=== PATIENT | female | born 1940 | race Caucasian/White ===

== ENCOUNTER 2017-12-11 07:03 | Emergency (ER) | payer MEDICARE, MEDICAID ==
[2017-12-11 07:24] VITALS: BP 160/76
[2017-12-11] MEDS ORDERED: Ketorolac 60 MG/2 ML SDV IM ONE (07:42)
[2017-12-11 08:25] LABS: CHLORIDE,CL 102 mEq/L (98-106); SODIUM,NA 135 mEq/L (136-145)
[2017-12-11] MEDS ORDERED: Acetaminophen/HYDROcodone 325-5 MG Tab PO ONE (08:44)
[2017-12-11] MEDS ORDERED: fentaNYL 100 MCG/2 ML SDV IVPUSH PRN (08:50)
[2017-12-11] MEDS ORDERED: Acetaminophen/HYDROcodone 325-5 MG Tab PO PRN (11:00)
[2017-12-11] MEDS ORDERED: fentaNYL 100 MCG/2 ML SDV IM PRN (12:25)
--- NOTE | 2017-12-11 16:18 | EDM.PDOC ---
ED HPI GENERAL MEDICAL PROBLEM - General Chief Complaint: ENT Problem Stated Complaint: ear pain Time Seen by Provider: 12/11/17 07:40 Source of Information: Reports: Patient History Limitations: Reports: No Limitations - History of Present Illness INITIAL COMMENTS - FREE TEXT/NARRATIVE: Angeles is a 77 year old female with PMH of CAD, osteoporosis, hypertension, hyperlipidemia, and overactive bladder, who presents to the ED with c/o left external ear pain, radiating down the left side of her neck. She reports the pain suddenly came on around midnight last night and has been severe ever since. She reports she has had a "lump" in that area and it is very tender to touch. She reports she has had this "lump" for quite some time. She reports that at times she feels like "she can feel her pulse in the area." She denies ever having any pain in this area. She denies any injury to her neck or ear. She reports she did fall back in September, when she "passed out" but has not had any neck pain following that until now. She denies any radiation of the pain past her neck. She denies any weakness in her upper extremities, numbness or tingling. Denies any fever or chills. Denies any hearing loss. Denies any recent upper respiratory issues or illness. Reports she has otherwise been feeling well. Patient appears very uncomfortable. She reports she has taken Aleve at home for the pain, but this did not seem to help. 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 Left Ear Pain Score (Numeric/FACES): 10 - Related Data Allergies Allergy/AdvReac Type Severity Reaction Status Date / Time No Known Allergies Allergy Verified 12/11/17 07:24 Home Meds: Home Meds Aspirin [Halfprin] 81 mg PO DAILY 01/07/16 [History] Calcium Carb & Citrate/Vit D3 [Calcium + D3 ER Tablet] 1 each PO BID 01/07/16 [ History] Clopidogrel Bisulfate [Clopidogrel] 75 mg PO DAILY 01/07/16 [History] Lactobacillus Acidophilus [Probiotic] 1 each PO DAILY 01/07/16 [History] Metoprolol Succinate [Toprol XL] 25 mg PO DAILY 01/07/16 [History] Multivitamin [Multivitamins] 1 each PO DAILY 01/07/16 [History] Nitroglycerin [Nitrolingual] 0.4 gm SL ASDIRECTED PRN 01/07/16 [History] Ubidecarenone [COQ-10] 30 mg PO DAILY 01/07/16 [History] atorvaSTATin Calcium [Atorvastatin Calcium] 40 mg PO BEDTIME 01/07/16 [History] Denosumab [Prolia] 60 mg SUBCUT ASDIRECTED 01/10/17 [History] Cephalexin [Keflex] 500 mg PO Q12H 5 Days #10 cap 12/11/17 [Rx] Ketorolac Tromethamine 10 mg PO Q6H PRN #20 tablet 12/11/17 [Rx] Past Medical History HEENT History: Reports: Macular Degeneration Cardiovascular History: Reports: Blood Clots/VTE/DVT, High Cholesterol, Hypertension, Stents Gastrointestinal History: Reports: Chronic Diarrhea Genitourinary History: Reports: UTI, Recurrent [employer] History: Reports: Hematologic History: Reports: Blood Transfusion(s) Oncologic (Cancer) History: Reports: Breast - Infectious Disease History Infectious Disease History: Reports: C-Difficile - Past Surgical History GI Surgical History: Reports: Cholecystectomy, Colonoscopy, Polypectomy Female Surgical History: Reports: None Oncologic Surgical History: Reports: Lumpectomy Social & Family History - Family History Family Medical History: Noncontributory - Tobacco Use Smoking Status *Q: Never Smoker Second Hand Smoke Exposure: No - Recreational Drug Use Recreational Drug Use: No ED ROS ENT - Review of Systems Review Of Systems: ROS reveals no pertinent complaints other than HPI. ED EXAM, ENT - Physical Exam Exam: See Below Exam Limited By: No Limitations General Appearance: Alert, WD/WN, Moderate Distress Eye Exam: Bilateral Eye: EOMI, Normal Fundi, Normal Inspection, PERRL Ears: Normal Canal, Hearing Grossly Normal, Normal TMs, Auricular Tenderness, Other (left posterior auricular mobile cyst measuring ~1.5 cm, no erythema or increased warmth, very tender to touch). No: Hearing Loss, Auricular Erythema, Auricular Ecchymosis, Canal Discharge, TM Bulging, TM Erythema, TM Fluid, TM Perforation Nose: Normal Inspection, Normal Mucousa, No Blood Mouth/Throat: Normal Inspection, Normal Gums, Normal Lips, Normal Oropharynx, Normal Teeth Head: Atraumatic, Normocephalic Neck: Normal Inspection, Supple, Limited Range of Motion (due to pain), Tender Lateral (left), Other (no cervical vertebral tenderness). No: Lymphadenopathy ( L), Lymphadenopathy (R), Tender Midline Respiratory/Chest: No Respiratory Distress, Lungs Clear, Normal Breath Sounds, No Accessory Muscle Use, Chest Non-Tender Cardiovascular: Normal Peripheral Pulses, Regular Rate, Rhythm, No Edema, No Gallop, No JVD, No Murmur, No Rub Back: Normal Inspection, Full Range of Motion Extremities: Normal Inspection, Normal Range of Motion, Non-Tender, No Pedal Edema, Normal Capillary Refill Neurological: Alert, Oriented, CN II-XII Intact, Normal Cognition, Normal Gait, Normal Reflexes, No Motor/Sensory Deficits Psychiatric: Anxious Skin: Warm, Dry, Intact, Normal Color, No Rash Lymphatic: No Adenopathy Course - Vital Signs Last Recorded V/S: Last Vital Signs Temp 97.8 F 12/11/17 07:11 Pulse 100 12/11/17 07:11 Resp 20 12/11/17 07:11 BP 160/76 H 12/11/17 07:11 Pulse Ox 97 12/11/17 07:11 - Orders/Labs/Meds Labs: Laboratory Tests 12/11/17 12/11/17 12/11/17 Range/Units 07:58 08:09 08:09 WBC 4.2 L (5.0-10.0) 10^3/uL RBC 3.94 L (4.00-5.50) 10^6/uL Hgb 12.7 (12.0-16.0) g/dL Hct 37.3 (37.0-47.0) % MCV 94.7 H (82.0-94.0) fL MCH 32.2 H (27.0-32.0) pg MCHC 34.0 (33.0-38.0) g/dL RDW Coeff of Levon 12.1 (11.0-15.0) % Plt Count 316 (150-400) 10^3/uL Neut % (Auto) 73.7 (35-85) % Lymph % (Auto) 18.9 (10-55) % [place] % (Auto) 6.7 (0-16) % Eos % (Auto) 0.5 (0-5) % Baso % (Auto) 0.2 (0-3) % Neut # (Auto) 3.07 (1.80-7.00) 10^3/uL Lymph # (Auto) 0.79 L (1.00-4.80) 10^3/uL [place] # (Auto) 0.28 (0.00-0.80) 10^3/uL Eos # (Auto) 0.02 (0.00-0.45) 10^3/uL Baso # (Auto) 0.01 10^3/uL ESR 10 (0-20) mm/hr Sodium 135 L (136-145) mEq/L Potassium 4.4 (3.5-5.0) mEq/L Chloride 102 (98-106) mEq/L Carbon Dioxide 23 (21-32) mmol/L BUN 26 H (7-18) mg/dL Creatinine 1.2 H (0.6-1.0) mg/dL Est Cr Clr Drug Dosing 39.60 mL/min Estimated GFR (MDRD) 44 L (>=60) mL/min Glucose 118 H (75-99) mg/dL Calcium 9.3 (8.4-10.1) mg/dL Total Bilirubin 0.6 (0.0-1.0) mg/dL AST 18 (15-37) U/L ALT 23 (12-78) U/L Alkaline Phosphatase 63 (46-116) U/L C-Reactive Protein < 0.2 L (0.2-0.8) mg/dL Total Protein 7.1 (6.4-8.2) g/dL Albumin 3.8 (3.4-5.0) g/dL Urine Color Yellow (YELLOW) Urine Appearance Clear (CLEAR) Urine pH 7.0 (4.5-8.0) Ur Specific [place] 1.015 (1.003-1.020) Urine Protein Negative (NEGATIVE) mg/dL Urine Glucose (UA) Negative (NEGATIVE) mg/dL Urine Ketones Trace H (NEGATIVE) mg/dL Urine Occult Blood Negative (NEGATIVE) Urine Nitrite Negative (NEGATIVE) Urine Bilirubin Negative (NEGATIVE) Urine Urobilinogen 0.2 (0.2-1.0) EU/dL Ur Leukocyte Esterase Small H (NEGATIVE) Urine RBC Not seen (0-5) /HPF Urine WBC 0-5 (0-5) /HPF Ur Squamous Epith Cells Occasional H (NOT SEEN) /HPF Amorphous Sediment Few H (NOT SEEN) /HPF Urine Bacteria Occasional H (NOT SEEN) /HPF Meds: Medications Discontinued Medications Generic Name Dose Route Start Last Admin Trade Name Freq PRN Reason Stop Dose Admin Hydrocodone Bitart/Acetaminophen 1 tab 12/11/17 08:44 12/11/17 08:46 [place] 325-5 Mg PO 12/11/17 08:45 1 tab ONETIME ONE Administration Hydrocodone Bitart/Acetaminophen 1 tab 12/11/17 11:00 [place] 325-5 Mg PO Q4H PRN Pain Ceftriaxone Sodium 1 gm 12/11/17 16:24 12/11/17 16:33 Rocephin IM 12/11/17 16:25 1 gm ONETIME ONE Administration Fentanyl 25 mcg 12/11/17 08:50 12/11/17 10:14 Sublimaze IVPUSH 25 mcg Q2H PRN Administration Pain Fentanyl 25 mcg 12/11/17 12:25 12/11/17 12:32 Sublimaze IM 25 mcg Q2H PRN Administration Pain Ketorolac Tromethamine 60 mg 12/11/17 07:42 12/11/17 07:47 Toradol IM 12/11/17 07:43 60 mg ONETIME ONE Administration Lidocaine HCl Confirm 12/11/17 16:48 12/11/17 16:33 Xylocaine 1% Administered 12/11/17 16:49 2.1 ml Dose Administration 20 ml .[address] .[facility] ONE - Re-Assessments/Exams Free Text/Narrative Re-Assessment/Exam: 12/11/[address] Aguirre, who came to examine the patient. He recommends proceeding with cervical spine xray. 12/11/17 1000 Cervical spine xray reveals trivial retrolisthesis of C5 on C6 associated with mild degenerative disc space narrowing. Will proceed with MRI. Will move patient to extended ER for pain management until MRI can be completed and results are back. Patient's pain improved with pain medications. 12/11/17 1300 MRI reveals multilevel degenerative change of the cervical spine, as well as foraminal stenosis most pronounced on the left C5-C6. Consulted with Dr. Uriarte, who also came and examined the patient. Her neck pain has now improved, but she continues to be very tender to touch in the area of left posterior auricular cyst. Neck tenderness has improved. She appears much more comfortable now with pain medications. We will give patient IM rocephin injection and discharge home on PO Keflex. Patient will follow up with Dr. Uriarte on Sunday12/17/2017 for cyst removal, after allowing time for inflammation to improve. She will be discharged home on oral pain meds and will also put in referral for physical therapy. Departure - Departure Time of Disposition: 16:05 Disposition: Home, Self-Care 01 Condition: Good Clinical Impression: Cyst on ear, Neural foraminal stenosis of cervical spine - Discharge Information Prescriptions: Cephalexin [Keflex] 500 mg PO Q12H 5 Days #10 cap Ketorolac Tromethamine 10 mg PO Q6H PRN #20 tablet PRN Reason: Pain Instructions: Cervical Subluxation Referrals: Lynne Pugh PA-C [Primary Care Provider] - Forms: ED Department Discharge Additional Instructions: Schedule appointment with physical therapy for neck pain Apply heat to affected area for comfort Toradol every 6 hours as needed. May alternate with 650 mg Tylenol. Keflex twice daily as needed Probiotic daily- May just increase yogurt intake. This will help with GI issues while being on antibiotics. Appointment with Dr. Uriarte on Sunday12/17/2017 at 3:15 pm for cyst removal, sooner if pain is unbearable
[2017-12-11] MEDS ORDERED: cefTRIAXone 1 GM Vial IM ONE (16:24)
[2017-12-11] MEDS ORDERED: Lidocaine 1% 20 ML MDV ONE (16:48)
== END 2017-12-11 16:55 | disposition home or self-care (01) ==
LOC: CC.ED 07:03
DX: L72.0 Epidermal cyst (principal); M48.02 Spinal stenosis, cervical region; I25.10 Atherosclerotic heart disease of native coronary artery without angina pectoris; I10 Essential (primary) hypertension; E78.5 Hyperlipidemia, unspecified; Z79.82 Long term (current) use of aspirin; Z79.899 Other long term (current) drug therapy; E78.00 Pure hypercholesterolemia, unspecified; Z95.5 Presence of coronary angioplasty implant and graft; Z87.440 Personal history of urinary (tract) infections; Z90.49 Acquired absence of other specified parts of digestive tract
CPT/HCPCS: 36415; 72040; 72141; 80053; 81001; 85025; 85651; 86140; 96372; 99284; A9270-GY; J0696; J1885; J3010

== ENCOUNTER 2018-07-23 08:13 | Inpatient (IN) | payer MEDICARE, OTHER ==
[2018-07-23] MEDS ORDERED: Temazepam 15 MG Cap PO PRN (09:15)
[2018-07-23] MEDS ORDERED: Ondansetron 4 MG/2 ML SDV IV PRN (09:15)
[2018-07-23] MEDS: Sodium Chloride 0.9% 1,000 ML IV SCH (10:21)
[2018-07-23] MEDS: cefTRIAXone 1 GM Vial IVPUSH SCH (10:21)
[2018-07-23] MEDS: Acetaminophen 325 MG Tab PO PRN ×2 (10:28→17:16)
[2018-07-23 10:44] LABS: CHLORIDE,CL 97 mEq/L (98-106); SODIUM,NA 134 mEq/L (136-145)
[2018-07-23] MEDS: Enoxaparin 30 MG/0.3 ML Syringe SUBCUT SCH (16:22)
[2018-07-23] MEDS: Formoterol/Mometasone 100-5 MCG 8.8 GM Inhaler IH PRN (17:40)
[2018-07-23] MEDS: Ibuprofen 200 MG Tab PO PRN (18:59)
[2018-07-24] MEDS: Sodium Chloride 0.9% 1,000 ML IV SCH ×3 (05:11→23:44)
[2018-07-24] MEDS: Aspirin 81 MG Tab.EC PO SCH (07:56)
[2018-07-24] MEDS: Clopidogrel 75 MG Tab PO SCH (07:56)
[2018-07-24] MEDS: Polyethylene Glycol 3350 Powder 17 GM Packet PO SCH (07:56)
[2018-07-24] MEDS: cefTRIAXone 1 GM Vial IVPUSH SCH (08:10)
[2018-07-24] MEDS: Formoterol/Mometasone 100-5 MCG 8.8 GM Inhaler IH PRN (14:20)
[2018-07-24] MEDS: Ibuprofen 200 MG Tab PO PRN (14:50)
[2018-07-24] MEDS: Enoxaparin 30 MG/0.3 ML Syringe SUBCUT SCH (16:09)
--- NOTE | 2018-07-24 20:44 | PCM.PN ---
- General Info Date of Service: 07/24/18 Admission Dx/Problem (Free Text): Acute UTI Weakness Functional Status: Reports: Pain Controlled, Tolerating Diet, Ambulating - Review of Systems General: Reports: Weakness, Fatigue. Denies: Fever HEENT: Reports: No Symptoms Pulmonary: Denies: Shortness of Breath, Cough Cardiovascular: Denies: Chest Pain, Edema, Lightheadedness Gastrointestinal: Denies: Abdominal Pain, Nausea, Vomiting Genitourinary: Reports: Frequency. Denies: Burning Musculoskeletal: Reports: Back Pain Skin: Reports: No Symptoms Neurological: Reports: No Symptoms - Patient Data Vitals - Most Recent: Last Vital Signs Temp 99.0 F 07/24/18 20:00 Pulse 82 07/24/18 20:00 Resp 20 07/24/18 20:00 BP 109/57 L 07/24/18 20:00 Pulse Ox 97 07/24/18 20:00 Weight - Most Recent: 147 lb 11.355 oz I&O - Last 24 Hours: Intake & Output 07/24/18 07/24/18 07/24/18 06:59 14:59 22:59 Intake Total 1320 Balance 1320 Apolinar Results Last 24 Hours: Microbiology 07/23/18 09:45 Aerobic Blood Culture - Preliminary Blood Gram Negative Rods Anaerobic Blood Culture - Preliminary Gram Negative Rods 07/23/18 09:15 Urine Culture - Preliminary Urine, Bladder Gram Negative Rods 07/23/18 09:30 Aerobic Blood Culture - Preliminary Blood NO GROWTH AFTER 1 DAY Anaerobic Blood Culture - Preliminary NO GROWTH AFTER 1 DAY Med Orders - Current: Current Medications Acetaminophen (Tylenol) 650 mg PO Q4H PRN PRN Reason: Pain (Mild 1-3)/fever Last Admin: 07/23/18 17:16 Dose: 650 mg Aspirin (Halfprin) 81 mg PO DAILY [facility] Last Admin: 07/24/18 07:56 Dose: 81 mg Ceftriaxone Sodium (Rocephin) 1 gm IVPUSH 0800 [facility] Last Admin: 07/24/18 08:10 Dose: 1 gm Clopidogrel Bisulfate (Plavix) 75 mg PO DAILY [facility] Last Admin: 07/24/18 07:56 Dose: 75 mg Enoxaparin Sodium (Lovenox) 30 mg SUBCUT DAILY@1600 [facility] Last Admin: 07/24/18 16:09 Dose: 30 mg Sodium Chloride (Normal Saline) 1,000 mls @ 100 mls/hr IV ASDIRECTED [facility] Last Admin: 07/24/18 14:47 Dose: 100 mls/hr Ibuprofen (Motrin) 400 mg PO Q6H PRN PRN Reason: Fever Last Admin: 07/24/18 14:50 Dose: 400 mg Mometasone Furoate/Formoterol Fumar (Dulera 100-5 Mcg) 2 puff IH BID PRN PRN Reason: Shortness of Breath Last Admin: 07/24/18 14:20 Dose: 2 puff Ondansetron HCl (Zofran) 4 mg IV Q6H PRN PRN Reason: Nausea/Vomiting Polyethylene Glycol (Miralax) 17 gm PO DAILY [facility] Last Admin: 07/24/18 07:56 Dose: 17 gm Temazepam (Restoril) 15 mg PO BEDTIME PRN PRN Reason: Sleep - Exam General: Alert, Oriented HEENT: Mucous Membr. Moist/[place] Neck: Supple Lungs: Clear to Auscultation, Normal Respiratory Effort Cardiovascular: Regular Rate, Regular Rhythm GI/Abdominal Exam: Normal Bowel Sounds, Soft, Tender (lower quadrants "sore" with palpation) Extremities: Normal Inspection, No Pedal Edema Skin: Warm, Dry Neurological: No New Focal Deficit - Problem List & Annotations (1) UTI (urinary tract infection) SNOMED Code(s): 30975423 Code(s): N39.0 - URINARY TRACT INFECTION, SITE NOT SPECIFIED Status: Acute Priority: High Current Visit: Yes (2) Weakness SNOMED Code(s): 99168356 Code(s): R53.1 - WEAKNESS Status: Acute Priority: High Current Visit: Yes - Problem List Review Problem List Initiated/Reviewed/Updated: Yes - Assessment Assessment:: Acute UTI Weakness - Plan Plan:: Patient feeling better today, more clear. She does continue to have low back discomfort yet today. Admits abdomen is sore but does not have typical burning with urination. 102 temp last evening. Blood culture, urine culture positive today for gram negative rods. Patient relates she has had several infections now since May. Will obtain renal bladder ultrasound, repeat labs in am. Continue IV fluids, Rocephin until full ID and sensitivities received from cultures.
[2018-07-25 07:18] LABS: CHLORIDE,CL 107 mEq/L (98-106); SODIUM,NA 140 mEq/L (136-145)
[2018-07-25] MEDS: cefTRIAXone 1 GM Vial IVPUSH SCH (07:20)
[2018-07-25] MEDS: Formoterol/Mometasone 100-5 MCG 8.8 GM Inhaler IH PRN (07:20)
[2018-07-25] MEDS: Aspirin 81 MG Tab.EC PO SCH (07:20)
[2018-07-25] MEDS: Clopidogrel 75 MG Tab PO SCH (07:20)
[2018-07-25] MEDS: Polyethylene Glycol 3350 Powder 17 GM Packet PO SCH (07:20)
[2018-07-25] MEDS: Enoxaparin 30 MG/0.3 ML Syringe SUBCUT SCH (16:03)
--- NOTE | 2018-07-25 21:12 | PCM.PN ---
- General Info Date of Service: 07/25/18 Admission Dx/Problem (Free Text): Acute UTI Weakness Functional Status: Reports: Pain Controlled, Tolerating Diet, Ambulating - Review of Systems General: Reports: Fever, Weakness HEENT: Reports: No Symptoms Pulmonary: Denies: Shortness of Breath, Cough Cardiovascular: Denies: Chest Pain, Edema, Lightheadedness Gastrointestinal: Denies: Abdominal Pain, Nausea, Vomiting Genitourinary: Reports: No Symptoms Musculoskeletal: Reports: Back Pain (back pain present but improving) Skin: Reports: No Symptoms Neurological: Reports: No Symptoms - Patient Data Vitals - Most Recent: Last Vital Signs Temp 98.2 F 07/25/18 20:00 Pulse 87 07/25/18 20:00 Resp 20 07/25/18 20:00 BP 115/44 L 07/25/18 20:00 Pulse Ox 97 07/25/18 20:00 Weight - Most Recent: 147 lb 11.355 oz I&O - Last 24 Hours: Intake & Output 07/25/18 07/25/18 07/25/18 06:59 14:59 22:59 Intake Total 895 Balance 895 Lab Results Last 24 Hours: Laboratory Results - last 24 hr 07/25/18 07/25/18 Range/Units 06:50 06:50 WBC 4.6 L (5.0-10.0) 10^3/uL RBC 3.53 L (4.00-5.50) 10^6/uL Hgb 11.2 L (12.0-16.0) g/dL Hct 34.2 L (37.0-47.0) % MCV 96.9 H (82.0-94.0) fL MCH 31.7 (27.0-32.0) pg MCHC 32.7 L (33.0-38.0) g/dL RDW Coeff of Levon 13.1 (11.0-15.0) % Plt Count 327 (150-400) 10^3/uL Neut % (Auto) 78.6 (35-85) % Lymph % (Auto) 8.9 L (10-55) % [place] % (Auto) 11.2 (0-16) % Eos % (Auto) 1.1 (0-5) % Baso % (Auto) 0.2 (0-3) % Neut # (Auto) 3.64 (1.80-7.00) 10^3/uL Lymph # (Auto) 0.41 L (1.00-4.80) 10^3/uL [place] # (Auto) 0.52 (0.00-0.80) 10^3/uL Eos # (Auto) 0.05 (0.00-0.45) 10^3/uL Baso # (Auto) 0.01 10^3/uL Sodium 140 (136-145) mEq/L Potassium 4.2 (3.5-5.0) mEq/L Chloride 107 H (98-106) mEq/L Carbon Dioxide 26 (21-32) mmol/L BUN 10 (7-18) mg/dL Creatinine 0.9 (0.6-1.0) mg/dL Est Cr Clr Drug Dosing 49.00 mL/min Estimated GFR (MDRD) > 60 (>=60) mL/min Glucose 105 H (75-99) mg/dL Calcium 7.1 L (8.4-10.1) mg/dL C-Reactive Protein 11.0 H (0.2-0.8) mg/dL Apolinar Results Last 24 Hours: Microbiology 07/23/18 09:45 Aerobic Blood Culture - Final Blood Escherichia Coli Anaerobic Blood Culture - Final Gram Negative Rods 07/23/18 09:15 Urine Culture - Final Urine, Bladder Escherichia Coli 07/23/18 09:30 Aerobic Blood Culture - Preliminary Blood NO GROWTH AFTER 2 DAYS Anaerobic Blood Culture - Preliminary NO GROWTH AFTER 2 DAYS Med Orders - Current: Current Medications Acetaminophen (Tylenol) 650 mg PO Q4H PRN PRN Reason: Pain (Mild 1-3)/fever Last Admin: 07/23/18 17:16 Dose: 650 mg Aspirin (Halfprin) 81 mg PO DAILY [facility] Last Admin: 07/25/18 07:20 Dose: 81 mg Ceftriaxone Sodium (Rocephin) 1 gm IVPUSH 0800 [facility] Last Admin: 07/25/18 07:20 Dose: 1 gm Clopidogrel Bisulfate (Plavix) 75 mg PO DAILY [facility] Last Admin: 07/25/18 07:20 Dose: 75 mg Enoxaparin Sodium (Lovenox) 30 mg SUBCUT DAILY@1600 [facility] Last Admin: 07/25/18 16:03 Dose: 30 mg Ibuprofen (Motrin) 400 mg PO Q6H PRN PRN Reason: Fever Last Admin: 07/24/18 14:50 Dose: 400 mg Mometasone Furoate/Formoterol Fumar (Dulera 100-5 Mcg) 2 puff IH BID PRN PRN Reason: Shortness of Breath Last Admin: 07/25/18 07:20 Dose: 2 puff Ondansetron HCl (Zofran) 4 mg IV Q6H PRN PRN Reason: Nausea/Vomiting Polyethylene Glycol (Miralax) 17 gm PO DAILY [facility] Last Admin: 07/25/18 07:20 Dose: 17 gm Temazepam (Restoril) 15 mg PO BEDTIME PRN PRN Reason: Sleep Discontinued Medications Sodium Chloride (Normal Saline) 1,000 mls @ 100 mls/hr IV ASDIRECTED [facility] Last Admin: 07/24/18 23:44 Dose: 100 mls/hr - Exam General: Alert, Oriented HEENT: Mucous Membr. Moist/[place] Neck: Supple Lungs: Clear to Auscultation, Normal Respiratory Effort Cardiovascular: Regular Rate, Regular Rhythm GI/Abdominal Exam: Normal Bowel Sounds, Soft, Non-Tender Extremities: Normal Inspection, No Pedal Edema - Problem List & Annotations (1) UTI (urinary tract infection) SNOMED Code(s): 80067621 Code(s): N39.0 - URINARY TRACT INFECTION, SITE NOT SPECIFIED Status: Acute Priority: High Current Visit: Yes (2) Weakness SNOMED Code(s): 89692748 Code(s): R53.1 - WEAKNESS Status: Acute Priority: High Current Visit: Yes - Problem List Review Problem List Initiated/Reviewed/Updated: Yes - My Orders Last 24 Hours: My Active Orders 07/25/18 06:00 Renal Comp [US] Routine - Assessment Assessment:: Acute UTI Weakness - Plan Plan:: Patient feeling better today, more clear. She does continue to have low back discomfort yet today. Admits abdomen is sore but does not have typical burning with urination. 102 temp last evening. Blood culture, urine culture positive today for gram negative rods. Patient relates she has had several infections now since May. Will obtain renal bladder ultrasound, repeat labs in am. Continue IV fluids, Rocephin until full ID and sensitivities received from cultures. 07-25-2018 Patient feeling good today. Back pain improving. No abdominal pain. Spiked a fever again last night. WBC improved to 4.6 today, CRP down to 11. Urine and blood cultures both show e coli, sensitive to Rocephin. Will continue Rocephin. Ambulate today. Possibly home tomorrow.
[2018-07-26 07:24] VITALS: BP 142/62
[2018-07-26 07:30] LABS: CHLORIDE,CL 104 mEq/L (98-106); SODIUM,NA 139 mEq/L (136-145)
[2018-07-26] MEDS: Aspirin 81 MG Tab.EC PO SCH (07:56)
[2018-07-26] MEDS: Polyethylene Glycol 3350 Powder 17 GM Packet PO SCH (07:56)
[2018-07-26] MEDS: Clopidogrel 75 MG Tab PO SCH (07:56)
[2018-07-26] MEDS: cefTRIAXone 1 GM Vial IVPUSH SCH (08:22)
--- NOTE | 2018-07-26 11:21 | PCM.DCSUM1 ---
Discharge Summary - Hospital Course Free Text/Narrative:: Patient presented to clinic to see Shauna with increased low back pain and not feeling well. Had been ill for 2 days with body aches and nausea. Had vomited x2. She did take Zofran and that had helped. Continued to have chills, low back and abdominal discomfort and noted increased frequency with urination. She had several UTIs as of late and had been started on vaginal estrogen for this. Has had 3 culture confirmed UTIs in the last 10 months. Urine culture, blood cultures ordered. Initial WBC 11, CRP 14. Admitted and started on IV fluids, Rocephin. Diagnosis: Stroke: No Modified Sunflower Scale: No Symptoms at All Modified Sunflower Scale Score: 0 - Discharge Data Discharge Date: 07/26/18 Discharge Disposition: Home, Self-Care 01 Condition: Good - Discharge Diagnosis/Problem(s) (1) UTI (urinary tract infection) SNOMED Code(s): 31509592 ICD Code: N39.0 - URINARY TRACT INFECTION, SITE NOT SPECIFIED Status: Acute Priority: High (2) Weakness SNOMED Code(s): 34151003 ICD Code: R53.1 - WEAKNESS Status: Acute Priority: High - Patient Summary/Data Complications: none Hospital Course: Patient has had good improvement since admission. Has only a dull back ache. No further nausea, vomiting, or abdominal pain. Did spike high fevers the first 2 nights here, now afebrile for 24 hours. Labs have improved, WBC now 3.6. CRP improved to 6. Blood cultures and urine culture both did show e coli , sensitive to Rocephin. Renal ultrasound obtained, waiting yet on report. Will set up to see Dr. Novoa in August for follow up as well as see Lynne Pugh next week. Send her home on Augmentin as covers strains of e coli in both blood and urine. - Patient Instructions Diet: Usual Diet as Tolerated Activity: As Tolerated - Discharge Plan *PRESCRIPTION DRUG MONITORING PROGRAM REVIEWED*: No *COPY OF PRESCRIPTION DRUG MONITORING REPORT IN PATIENT KATHY: No Prescriptions/Med Rec: Amoxicillin/Potassium Clav [Augmentin 875-125 Tablet] 1 each PO BID #20 tablet Home Medications: Home Meds Aspirin [Halfprin] 81 mg PO DAILY 01/07/16 [History] Calcium Carb & Citrate/Vit D3 [Calcium + D3 ER Tablet] 2 each PO BID 01/07/16 [ History] Clopidogrel Bisulfate [Clopidogrel] 75 mg PO DAILY 01/07/16 [History] Multivitamin [Multivitamins] 1 each PO DAILY 01/07/16 [History] Nitroglycerin [Nitrolingual] 0.4 gm SL ASDIRECTED PRN 01/07/16 [History] Ubidecarenone [COQ-10] 30 mg PO DAILY 01/07/16 [History] atorvaSTATin Calcium [Atorvastatin Calcium] 40 mg PO BEDTIME 01/07/16 [History] Denosumab [Prolia] 60 mg SUBCUT ASDIRECTED 01/10/17 [History] Acetaminophen [Tylenol] 325 mg PO Q4H PRN 07/23/18 [History] Budesonide/Formoterol Fumarate [Symbicort 80-4.5 Mcg Inhaler] 2 inh INH BID PRN 07/23/18 [History] Cranberry Conc/Ascorbic Acid [Cranberry Concentrate Softgel] 1 tab PO BID [History] Estradiol [Estrace 0.01% Vaginal Crm] 1 applic VAG ASDIRECTED 07/23/18 [History] Lutein 12 mg PO DAILY 07/23/18 [History] Ondansetron [Zofran] 4 - 8 mg PO Q4H PRN 07/23/18 [History] Polyethylene Glycol 3350 [MiraLAX] 17 gm PO DAILY 07/23/18 [History] Amoxicillin/Potassium Clav [Augmentin 875-125 Tablet] 1 each PO BID #20 tablet 07/26/18 [Rx] Patient Handouts: Urinary Tract Infection, Adult Referrals: Lynne Pugh PA-C [Primary Care Provider] - (Follow up with Lynne Pugh in 10 days ) Rich Novoa MD [Physician] - (See Dr. Novoa in August in [place]) - Discharge Summary/Plan Comment DC Time >30 min.: No Discharge Summary/Plan Comment: Discharge home Continue all meds. Augmentin 875 mg BID for 10 days. Follow up with Lynne Pugh next week, Dr. Novoa in August. - General Info Date of Service: 07/26/18 Admission Dx/Problem (Free Text: Acute UTI Weakness Functional Status: Reports: Pain Controlled, Tolerating Diet, Ambulating - Review of Systems General: Reports: Weakness, Fatigue. Denies: Fever HEENT: Reports: No Symptoms Pulmonary: Denies: Shortness of Breath, Cough Cardiovascular: Denies: Chest Pain, Edema, Lightheadedness Gastrointestinal: Denies: Abdominal Pain, Nausea, Vomiting Genitourinary: Reports: No Symptoms Musculoskeletal: Reports: Back Pain Skin: Reports: No Symptoms Neurological: Reports: No Symptoms - Patient Data Vitals - Most Recent: Last Vital Signs Temp 97.9 F 07/26/18 07:23 Pulse 84 07/26/18 07:23 Resp 16 07/26/18 07:23 BP 142/62 H 07/26/18 07:23 Pulse Ox 98 07/26/18 07:23 Weight - Most Recent: 147 lb 11.355 oz Lab Results - Last 24 hrs: Laboratory Results - last 24 hr 07/26/18 07/26/18 Range/Units 07:12 07:12 WBC 3.6 L (5.0-10.0) 10^3/uL RBC 3.59 L (4.00-5.50) 10^6/uL Hgb 11.7 L (12.0-16.0) g/dL Hct 34.6 L (37.0-47.0) % MCV 96.4 H (82.0-94.0) fL MCH 32.6 H (27.0-32.0) pg MCHC 33.8 (33.0-38.0) g/dL RDW Coeff of Levon 13.1 (11.0-15.0) % Plt Count 414 H (150-400) 10^3/uL Neut % (Auto) 72.8 (35-85) % Lymph % (Auto) 15.0 (10-55) % Wolfe % (Auto) 10.8 (0-16) % Eos % (Auto) 1.1 (0-5) % Baso % (Auto) 0.3 (0-3) % Neut # (Auto) 2.63 (1.80-7.00) 10^3/uL Lymph # (Auto) 0.54 L (1.00-4.80) 10^3/uL Wolfe # (Auto) 0.39 (0.00-0.80) 10^3/uL Eos # (Auto) 0.04 (0.00-0.45) 10^3/uL Baso # (Auto) 0.01 10^3/uL Sodium 139 (136-145) mEq/L Potassium 4.5 (3.5-5.0) mEq/L Chloride 104 (98-106) mEq/L Carbon Dioxide 27 (21-32) mmol/L BUN 8 (7-18) mg/dL Creatinine 0.8 (0.6-1.0) mg/dL Est Cr Clr Drug Dosing 55.13 mL/min Estimated GFR (MDRD) > 60 (>=60) mL/min Glucose 106 H (75-99) mg/dL Calcium 7.8 L (8.4-10.1) mg/dL C-Reactive Protein 6.0 H (0.2-0.8) mg/dL SCOTT Results - Last 24 hrs: Microbiology 07/23/18 09:30 Aerobic Blood Culture - Preliminary Blood NO GROWTH AFTER 3 DAYS Anaerobic Blood Culture - Preliminary NO GROWTH AFTER 3 DAYS 07/23/18 09:45 Aerobic Blood Culture - Final Blood Escherichia Coli Anaerobic Blood Culture - Final Gram Negative Rods 07/23/18 09:15 Urine Culture - Final Urine, Bladder Escherichia Coli Med Orders - Current: Current Medications Discontinued Medications Acetaminophen (Tylenol) 650 mg PO Q4H PRN PRN Reason: Pain (Mild 1-3)/fever Last Admin: 07/23/18 17:16 Dose: 650 mg Aspirin (Halfprin) 81 mg PO DAILY [facility] Last Admin: 07/26/18 07:56 Dose: 81 mg Ceftriaxone Sodium (Rocephin) 1 gm IVPUSH 0800 [facility] Last Admin: 07/26/18 08:22 Dose: 1 gm Clopidogrel Bisulfate (Plavix) 75 mg PO DAILY [facility] Last Admin: 07/26/18 07:56 Dose: 75 mg Enoxaparin Sodium (Lovenox) 30 mg SUBCUT DAILY@1600 [facility] Last Admin: 07/25/18 16:03 Dose: 30 mg Sodium Chloride (Normal Saline) 1,000 mls @ 100 mls/hr IV ASDIRECTED [facility] Last Admin: 07/24/18 23:44 Dose: 100 mls/hr Ibuprofen (Motrin) 400 mg PO Q6H PRN PRN Reason: Fever Last Admin: 07/24/18 14:50 Dose: 400 mg Mometasone Furoate/Formoterol Fumar (Dulera 100-5 Mcg) 2 puff IH BID PRN PRN Reason: Shortness of Breath Last Admin: 07/25/18 07:20 Dose: 2 puff Ondansetron HCl (Zofran) 4 mg IV Q6H PRN PRN Reason: Nausea/Vomiting Polyethylene Glycol (Miralax) 17 gm PO DAILY [facility] Last Admin: 07/26/18 07:56 Dose: 17 gm Temazepam (Restoril) 15 mg PO BEDTIME PRN PRN Reason: Sleep - Exam General: Reports: Alert, Oriented HEENT: Reports: Mucous Membr. Moist/Hyder Neck: Reports: Supple Lungs: Reports: Clear to Auscultation, Normal Respiratory Effort Cardiovascular: Reports: Regular Rate, Regular Rhythm GI/Abdominal Exam: Normal Bowel Sounds, Soft, Non-Tender Extremities: Normal Inspection, No Pedal Edema Skin: Reports: Warm, Dry Neurological: Reports: No New Focal Deficit
== END 2018-07-26 10:50 | disposition home or self-care (01) | DRG 690 ==
LOC: CC.FCMC 08:13 → CC.MS 08:13
PROVIDERS: ADMIT Nurse Practitioner Family; ATTEND Family Medicine
DX: N39.0 Urinary tract infection, site not specified (principal); I10 Essential (primary) hypertension; Z79.899 Other long term (current) drug therapy; Z79.82 Long term (current) use of aspirin; Z85.3 Personal history of malignant neoplasm of breast; B96.20 Unspecified Escherichia coli [E. coli] as the cause of diseases classified elsewhere; Z88.8 Allergy status to other drugs, medicaments and biological substances
CPT/HCPCS: 36415; 71046; 76770; 80048; 80053; 81001; 83735; 84484; 85025; 86140; 87040; 87077; 87086; 87088; 87186; A9270-GY; J0696; J1650; J7030

== ENCOUNTER 2018-08-24 15:39 | Emergency (ER) | payer MEDICARE, OTHER ==
[2018-08-24] MEDS ORDERED: Albuterol/Ipratropium 3.0-0.5 MG/3 ML Neb Soln NEB ONE (16:12)
[2018-08-24] MEDS ORDERED: LORazepam 2 MG/ML Syringe IVPUSH ONE (16:13)
--- NOTE | 2018-08-24 16:26 | EDM.PDOC ---
ED HPI GENERAL MEDICAL PROBLEM - General Chief Complaint: General Stated Complaint: not feeling well Time Seen by Provider: 08/24/18 16:05 Source of Information: Reports: Patient, Family History Limitations: Reports: No Limitations - History of Present Illness INITIAL COMMENTS - FREE TEXT/NARRATIVE: This patient is a 78 year old female that presents to the ER with daughter at bedside. The patient reports that she was admitted here to the hospital in Jul. She reports for a UTI, they US her kidneys, than later it was discovered that she had Ovarian cancer. She found out this news on , 2 days ago. Patient reports that since about mid Jul, about the time at her discharge from the hospital she began to have some mild shortness of breath and cough. She reports then over sabrina past month she has increased abdominal pain and discomfort. She also reports over the past couple of weeks having a headache that comes and goes. She reports that her shortness of breath has become worse, then about 3am this morning it was worse and she could not sleep, and has become even worse as the day has progressed. The patient is able to conversing in complete sentences, but does appear short of breath. She is sitting up in the stretcher with her legs in the stretcher as well. The patient reports she also has come nausea at times. She denies neck pain, neck stiffness, bowel changes, rash, fever, vomiting. She reports some lower/mid becca pain that has been present for weeks as well. Patient reports that she is tire and done with feeling this way, so she called her daughter today and asked to bring her to the ER. The patient is alert and oriented. The patient reports she wants medication treatment but no machines if she codes. The patient reports that [facility] is in the process of referring her to [facility] for her ovarian CA. The patient does report in 2006 she had left breast cancer that was resolved with lumpectomy and radiation. She reports that she has history of cardiac stents from several years ago as well. At this time, I have ordered several tests. The patient also appears anxious, I have ordered Ativan. Her lung sounds are decreased, I have ordered a Duoneb. Onset: Gradual Onset Date: 08/26/17 Duration: Getting Worse Location: Reports: Chest, Abdomen Quality: Reports: Ache, Pressure Severity: Moderate Improves with: Reports: None Worsens with: Reports: None Associated Symptoms: Reports: Chest Pain, Cough, Headaches, Loss of Appetite, Malaise, Nausea/Vomiting, Shortness of Breath, Weakness (generalized). Denies: Confusion, cough w sputum, Diaphoresis, Fever/Chills, Rash, Seizure, Syncope - Related Data Allergies Allergy/AdvReac Type Severity Reaction Status Date / Time nitrofurantoin Allergy Nausea and Verified 08/24/18 15:42 Vomiting Home Meds: Home Meds Aspirin [Halfprin] 81 mg PO DAILY 01/07/16 [History] Calcium Carb & Citrate/Vit D3 [Calcium + D3 ER Tablet] 2 each PO BID 01/07/16 [ History] Clopidogrel Bisulfate [Clopidogrel] 75 mg PO DAILY 01/07/16 [History] Multivitamin [Multivitamins] 1 each PO DAILY 01/07/16 [History] Nitroglycerin [Nitrolingual] 0.4 gm SL ASDIRECTED PRN 01/07/16 [History] Ubidecarenone [COQ-10] 30 mg PO DAILY 01/07/16 [History] atorvaSTATin Calcium [Atorvastatin Calcium] 40 mg PO BEDTIME 01/07/16 [History] Denosumab [Prolia] 60 mg SUBCUT ASDIRECTED 01/10/17 [History] Acetaminophen [Tylenol] 325 mg PO Q4H PRN 07/23/18 [History] Budesonide/Formoterol Fumarate [Symbicort 80-4.5 Mcg Inhaler] 2 inh INH BID PRN 07/23/18 [History] Cranberry Conc/Ascorbic Acid [Cranberry Concentrate Softgel] 1 tab PO BID [History] Estradiol [Estrace 0.01% Vaginal Crm] 1 applic VAG ASDIRECTED 07/23/18 [History] Lutein 12 mg PO DAILY 07/23/18 [History] Ondansetron [Zofran] 4 - 8 mg PO Q4H PRN 07/23/18 [History] Polyethylene Glycol 3350 [MiraLAX] 17 gm PO DAILY 07/23/18 [History] Amoxicillin/Potassium Clav [Augmentin 875-125 Tablet] 1 each PO BID #20 tablet 07/26/18 [Rx] Past Medical History HEENT History: Reports: Macular Degeneration Cardiovascular History: Reports: Blood Clots/VTE/DVT, High Cholesterol, Hypertension, Stents Gastrointestinal History: Reports: Chronic Diarrhea Genitourinary History: Reports: UTI, Recurrent 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: Endocrine/Metabolic History: Reports: Osteoporosis Hematologic History: Reports: Blood Transfusion(s) Oncologic (Cancer) History: Reports: Breast - Infectious Disease History Infectious Disease History: Reports: C-Difficile - Past Surgical History GI Surgical History: Reports: Cholecystectomy, Colonoscopy, Polypectomy Female Surgical History: Reports: None Oncologic Surgical History: Reports: Lumpectomy Social & Family History - Family History Family Medical History: Noncontributory ED ROS GENERAL - Review of Systems Review Of Systems: See Below Constitutional: Reports: Malaise, Weakness (generalized), Fatigue, Decreased Appetite, Weight Loss. Denies: Fever, Chills HEENT: Reports: No Symptoms Respiratory: Reports: Shortness of Breath, Pleuritic Chest Pain, Cough. Denies : Sputum, Hemoptysis Cardiovascular: Reports: Dyspnea on Exertion. Denies: Edema, Lightheadedness, Palpitations, Syncope Endocrine: Reports: No Symptoms GI/Abdominal: Reports: Abdominal Pain, Decreased Appetite, Nausea. Denies: Diarrhea, Vomiting : Reports: No Symptoms Musculoskeletal: Reports: Back Pain Skin: Reports: No Symptoms Neurological: Reports: Headache. Denies: Confusion, Dizziness, Numbness, Seizure, Syncope, Tingling, Change in Speech, Gait Disturbance Psychiatric: Reports: Anxiety, Depression Hematologic/Lymphatic: Reports: No Symptoms Immunologic: Reports: No Symptoms ED EXAM, GENERAL - Physical Exam Exam: See Below Exam Limited By: No Limitations General Appearance: Alert, WD/WN, No Apparent Distress, Anxious, Other (Appears Chronically Ill) Eye Exam: Bilateral Eye: EOMI, Normal Inspection, PERRL, Other (eye glass removed for exam and replaced) Ears: Normal External Exam, Normal Canal, Hearing Grossly Normal, Normal TMs Ear Exam: Bilateral Ear: Auricle Normal, Canal Normal, TM normal Nose: Normal Inspection, Normal Mucosa, No Blood Throat/Mouth: Normal Inspection, Normal Lips, Normal Teeth, Normal Gums, Normal Oropharynx, Normal Voice, No Airway Compromise Head: Atraumatic, Normocephalic Neck: Normal Inspection, Supple, Non-Tender, Full Range of Motion Respiratory/Chest: No Respiratory Distress, No Accessory Muscle Use, Chest Non- Tender, Decreased Breath Sounds (moderate throughout). No: Respiratory Distress , Crackles, Rales, Rhonchi, Wheezing, Stridor, Pleural Rub, Accessory Muscle Use , Retractions, Splinting, Prolonged Expiration Cardiovascular: Normal Peripheral Pulses, Regular Rate, Rhythm, No Edema, No Gallop, No JVD, No Rub, Systolic Murmur Peripheral Pulses: 2+: Carotid (L), Carotid (R), Posterior Tibial (L), Posterior Tibial (R), Dorsalis Pedis (L), Dorsalis Pedis (R) GI/Abdominal: Normal Bowel Sounds, Soft, No Organomegaly, No Distention, No Abnormal Bruit, No Mass, Pelvis Stable, Tender (generalized throughout) (Female) Exam: Deferred Rectal (Female) Exam: Deferred Back Exam: Normal Inspection, Full Range of Motion, Paraspinal Tenderness ( thourhgout lumbar region). No: CVA Tenderness (L), CVA Tenderness (R), Decreased Range of Motion, Muscle Spasm, Vertebral Tenderness Extremities: Normal Inspection, Normal Range of Motion, Non-Tender, No Pedal Edema, Normal Capillary Refill Neurological: Alert, Oriented, CN II-XII Intact, Normal Cognition, No Motor/ Sensory Deficits, Other (Patient not able to ambulate in ER. Patient reports she has been transferring from chair to chair at home and to generally weak to ambulate for weeks now. ) Psychiatric: Normal Affect, Normal Mood Skin Exam: Warm, Dry, Intact, Normal Color, No Rash Lymphatic: No Adenopathy EKG INTERPRETATION EKG Date: 08/24/18 Time: 16:34 Rhythm: NSR Rate (Beats/Min): 89 QRS: Other (Low Voltage: Electrical Alternans) ST-T: Normal Comparison: NA - No Prior EKG Course - Vital Signs Last Recorded V/S: Last Vital Signs Temp 98.5 F 08/24/18 20:21 Pulse 84 08/24/18 20:21 Resp 22 H 08/24/18 20:21 BP 145/73 H 08/24/18 20:21 Pulse Ox 94 L 08/24/18 20:21 - Orders/Labs/Meds Orders: Active Orders 24 hr Category Date Time Status RT Aerosol Therapy [RC] ASDIRECTED Care 08/24/18 16:12 Active Ang Chest [CT] Stat Exams 08/24/18 17:11 Taken Chest 2V [CR] Stat Exams 08/24/18 16:11 Taken Head wo Cont [CT] Stat Exams 08/24/18 17:11 Taken CULTURE BLOOD [BC] Stat Lab 08/24/18 16:15 Received CULTURE BLOOD [BC] Stat Lab 08/24/18 16:20 Results CULTURE URINE [RM] Stat Lab 08/24/18 16:50 Received URINALYSIS W/MICROSCOPIC [UA W/MICROSCOPIC] [URIN] Stat Lab 08/24/18 16:09 Ordered Blood Culture x2 Reflex Set [OM.PC] Stat Oth 08/24/18 16:10 Ordered Labs: Laboratory Tests 08/24/18 08/24/18 08/24/18 Range/Units 16:09 16:15 16:15 WBC (5.0-10.0) 10^3/uL RBC (4.00-5.50) 10^6/uL Hgb (12.0-16.0) g/dL Hct (37.0-47.0) % MCV (82.0-94.0) fL MCH (27.0-32.0) pg MCHC (33.0-38.0) g/dL RDW Coeff of Levon (11.0-15.0) % Plt Count (150-400) 10^3/uL Neut % (Auto) (35-85) % Lymph % (Auto) (10-55) % [place] % (Auto) (0-16) % Eos % (Auto) (0-5) % Baso % (Auto) (0-3) % Neut # (Auto) (1.80-7.00) 10^3/uL Lymph # (Auto) (1.00-4.80) 10^3/uL [place] # (Auto) (0.00-0.80) 10^3/uL Eos # (Auto) (0.00-0.45) 10^3/uL Baso # (Auto) 10^3/uL D-Dimer, Quantitative 2.24 H (0.00-0.50) Sodium 133 L (136-145) mEq/L Potassium 4.4 (3.5-5.0) mEq/L Chloride 98 (98-106) mEq/L Carbon Dioxide 24 (21-32) mmol/L BUN 20 H D (7-18) mg/dL Creatinine 1.1 H (0.6-1.0) mg/dL Est Cr Clr Drug Dosing TNP Estimated GFR (MDRD) 48 L (>=60) mL/min Glucose 108 H (75-99) mg/dL Lactic Acid (0.4-2.0) mmol/L Calcium 8.4 (8.4-10.1) mg/dL Total Bilirubin 0.4 (0.0-1.0) mg/dL AST 17 (15-37) U/L ALT 16 (12-78) U/L Alkaline Phosphatase 67 (46-116) U/L Creatine Kinase 59 (21-215) U/L Troponin I < 0.017 (0.00-0.06) ng/mL C-Reactive Protein 1.2 H (0.2-0.8) mg/dL NT-Pro-B Natriuret Pep 305 (0-1000) pg/mL Total Protein 6.7 (6.4-8.2) g/dL Albumin 3.1 L (3.4-5.0) g/dL Amylase 72 (25-115) U/L Urine Color Yellow (YELLOW) Urine Appearance Slightly cloudy (CLEAR) Urine pH 6.0 (4.5-8.0) Ur Specific Ajo 1.020 (1.003-1.020) Urine Protein 30 H (NEGATIVE) mg/dL Urine Glucose (UA) Negative (NEGATIVE) mg/dL Urine Ketones 15 H (NEGATIVE) mg/dL Urine Occult Blood Small H (NEGATIVE) Urine Nitrite Negative (NEGATIVE) Urine Bilirubin Small H (NEGATIVE) Urine Urobilinogen 0.2 (0.2-1.0) EU/dL Ur Leukocyte Esterase Moderate H (NEGATIVE) Urine RBC 10-20 H (0-5) /HPF Urine WBC >100 H (0-5) /HPF Urine WBC Clumps Few H (NOT SEEN) /HPF Ur Epithelial Cells Few H (NOT SEEN) /HPF Urine Bacteria Few H (NOT SEEN) /HPF 08/24/18 08/24/18 Range/Units 16:15 16:20 WBC 7.4 (5.0-10.0) 10^3/uL RBC 4.26 (4.00-5.50) 10^6/uL Hgb 13.4 (12.0-16.0) g/dL Hct 41.0 (37.0-47.0) % MCV 96.2 H (82.0-94.0) fL MCH 31.5 (27.0-32.0) pg MCHC 32.7 L (33.0-38.0) g/dL RDW Coeff of Levon 13.3 (11.0-15.0) % Plt Count 370 (150-400) 10^3/uL Neut % (Auto) 84.5 (35-85) % Lymph % (Auto) 8.0 L (10-55) % [place] % (Auto) 6.9 (0-16) % Eos % (Auto) 0.5 (0-5) % Baso % (Auto) 0.1 (0-3) % Neut # (Auto) 6.23 (1.80-7.00) 10^3/uL Lymph # (Auto) 0.59 L (1.00-4.80) 10^3/uL [place] # (Auto) 0.51 (0.00-0.80) 10^3/uL Eos # (Auto) 0.04 (0.00-0.45) 10^3/uL Baso # (Auto) 0.01 10^3/uL D-Dimer, Quantitative (0.00-0.50) Sodium (136-145) mEq/L Potassium (3.5-5.0) mEq/L Chloride (98-106) mEq/L Carbon Dioxide (21-32) mmol/L BUN (7-18) mg/dL Creatinine (0.6-1.0) mg/dL Est Cr Clr Drug Dosing Estimated GFR (MDRD) (>=60) mL/min Glucose (75-99) mg/dL Lactic Acid 1.6 (0.4-2.0) mmol/L Calcium (8.4-10.1) mg/dL Total Bilirubin (0.0-1.0) mg/dL AST (15-37) U/L ALT (12-78) U/L Alkaline Phosphatase (46-116) U/L Creatine Kinase (21-215) U/L Troponin I (0.00-0.06) ng/mL C-Reactive Protein (0.2-0.8) mg/dL NT-Pro-B Natriuret Pep (0-1000) pg/mL Total Protein (6.4-8.2) g/dL Albumin (3.4-5.0) g/dL Amylase (25-115) U/L Urine Color (YELLOW) Urine Appearance (CLEAR) Urine pH (4.5-8.0) Ur Specific Ajo (1.003-1.020) Urine Protein (NEGATIVE) mg/dL Urine Glucose (UA) (NEGATIVE) mg/dL Urine Ketones (NEGATIVE) mg/dL Urine Occult Blood (NEGATIVE) Urine Nitrite (NEGATIVE) Urine Bilirubin (NEGATIVE) Urine Urobilinogen (0.2-1.0) EU/dL Ur Leukocyte Esterase (NEGATIVE) Urine RBC (0-5) /HPF Urine WBC (0-5) /HPF Urine WBC Clumps (NOT SEEN) /HPF Ur Epithelial Cells (NOT SEEN) /HPF Urine Bacteria (NOT SEEN) /HPF Meds: Medications Discontinued Medications Generic Name Dose Route Start Last Admin Trade Name Freq PRN Reason Stop Dose Admin Albuterol/Ipratropium 3 ml 08/24/18 16:12 08/24/18 16:33 Duoneb 3.0-0.5 Mg/3 Ml NEB 08/24/18 16:13 3 ml ONETIME ONE Administration Ceftriaxone Sodium 1 gm 08/24/18 20:40 Rocephin IVPUSH 08/24/18 20:41 ONETIME ONE Sodium Chloride 500 mls @ 500 mls/hr 08/24/18 17:14 08/24/18 18:00 Normal Saline IV 08/24/18 18:13 500 mls/hr .BOLUS ONE Administration Iopamidol 100 ml 08/24/18 17:06 08/24/18 17:22 Isovue-370 (76%) IVPUSH 08/24/18 17:07 100 ml ONETIME ONE Administration Lorazepam 0.5 mg 08/24/18 16:13 08/24/18 16:33 Ativan IVPUSH 08/24/18 16:14 0.5 mg ONETIME ONE Administration - Radiology Interpretation Free Text/Narrative:: CXR: No infiltrates, no pulmonary edema, no cardiomegaly. CT Head without: No acute bleed, mass, or acute infarct. CTA Chest: NO PE, Large bilateral layering pleural effusions with associated compressive atelectasis are increased when compared to 08/05/18. Scattered areas of subsegmental atelectasis versus scarring bilaterally. Trace perihepatic and perisplenic upper abdominal ascites. Moderate-sized pericardial effusion approximating 10mm in maximal thickness. CT Results Date: 08/24/18 CT Results Time: 19:14 - Re-Assessments/Exams Free Text/Narrative Re-Assessment/Exam: 08/24/18 19:10 RN told me the patient attempted to get up and ambulate to the bathroom, she became very short of breath and had to physically back to the bed. 08/24/18 20:30 I called and spoke to Peyton about this patient results. Will call [facility] and transfer the patient. I went and spoke with the patient and family at a great length about patient condition and diagnosis. They are upset and crying. Patient would like to be transferred to [facility]. I then called [facility] and spoke to Dr. Pulido in the ER. He has accepted the patient. We discussed patient current status, will transfer via ground ALS. Patient currently is not tachy. She complains of shortness of breath, but able to converse in a full and complete sentence at this time. Departure - Departure Time of Disposition: 20:52 Disposition: DC/Tfer to [facility] Condition: Critical Clinical Impression: Pericardial effusion, Pleural effusion, Perihepatic fluid collection Ascites Qualifiers: Ascites type: malignant Qualified Code(s): R18.0 - Malignant ascites Dyspnea Qualifiers: Dyspnea type: dyspnea on exertion Qualified Code(s): R06.09 - Other forms of dyspnea UTI (urinary tract infection) Qualifiers: Urinary tract infection type: acute cystitis Hematuria presence: with hematuria Qualified Code(s): N30.01 - Acute cystitis with hematuria - Discharge Information *PRESCRIPTION DRUG MONITORING PROGRAM REVIEWED*: No *COPY OF PRESCRIPTION DRUG MONITORING REPORT IN PATIENT KATHY: No Referrals: Lynne Pugh PA-C [Primary Care Provider] - Forms: ED Department Discharge - My Orders Last 24 Hours: My Active Orders 08/24/18 16:09 URINALYSIS W/MICROSCOPIC [UA W/MICROSCOPIC] [URIN] Stat 08/24/18 16:10 Blood Culture x2 Reflex Set [OM.PC] Stat 08/24/18 16:11 Chest 2V [CR] Stat 08/24/18 16:12 RT Aerosol Therapy [RC] ASDIRECTED 08/24/18 16:15 CULTURE BLOOD [BC] Stat 08/24/18 16:20 CULTURE BLOOD [BC] Stat 08/24/18 16:50 CULTURE URINE [RM] Stat 08/24/18 17:11 Ang Chest [CT] Stat Head wo Cont [CT] Stat - Assessment/Plan Last 24 Hours: My Active Orders 08/24/18 16:09 URINALYSIS W/MICROSCOPIC [UA W/MICROSCOPIC] [URIN] Stat 08/24/18 16:10 Blood Culture x2 Reflex Set [OM.PC] Stat 08/24/18 16:11 Chest 2V [CR] Stat 08/24/18 16:12 RT Aerosol Therapy [RC] ASDIRECTED 08/24/18 16:15 CULTURE BLOOD [BC] Stat 08/24/18 16:20 CULTURE BLOOD [BC] Stat 08/24/18 16:50 CULTURE URINE [RM] Stat 08/24/18 17:11 Ang Chest [CT] Stat Head wo Cont [CT] Stat Plan: PLEASE SEE RN NOTE FOR PFSH. This patient is being transferred via ALS ground to [facility]. The accepting is Dr. Pulido. The patient and daughter have been explained the risks and benefits of the transfer. The risk of transfer are MVC, in route , increase dyspnea, worsening of condition, confusion. The risk of staying in [place] are , worsening of condition, worsening of dyspnea. The benefits of staying in [place] are dying close to home. The benfits of transfer are seeing sweat band separator and manager medical, and oncologist. The benefits also include ability to have procedures done by specialist to help dyspnea and rid fluid.
[2018-08-24 16:45] LABS: CHLORIDE,CL 98 mEq/L (98-106); SODIUM,NA 133 mEq/L (136-145)
[2018-08-24] MEDS ORDERED: Iopamidol 755 Mg/ML 100 ML Bottle IVPUSH ONE (17:06)
[2018-08-24] MEDS ORDERED: Sodium Chloride 0.9% 500 ML IV ONE (17:14)
[2018-08-24 20:21] VITALS: BP 145/73
[2018-08-24] MEDS ORDERED: cefTRIAXone 1 GM Vial IVPUSH ONE (20:40)
== END 2018-08-24 21:20 ==
LOC: CC.ED 15:39
DX: I31.3 Pericardial effusion (noninflammatory) (principal); R18.0 Malignant ascites; N30.01 Acute cystitis with hematuria; R06.09 Other forms of dyspnea; I10 Essential (primary) hypertension; E78.00 Pure hypercholesterolemia, unspecified; Z79.899 Other long term (current) drug therapy; Z88.8 Allergy status to other drugs, medicaments and biological substances; R51 Headache
CPT/HCPCS: 36415; 70450; 71046; 71275; 80053; 81001; 82150; 82550; 83605; 83880; 84484; 85025; 85379; 86140; 87040; 87086; 87088; 87186; 93005; 93010; 94640; 96361; 96374; 99284; 99285; J0696; J2060; J7030; Q9967; J7620-GY

== ENCOUNTER 2018-10-19 11:30 | Emergency (ER) | payer MEDICARE, OTHER ==
[2018-10-19] MEDS ORDERED: Acetaminophen/HYDROcodone 325-5 MG Tab PO ONE (11:31)
[2018-10-19] MEDS ORDERED: Morphine 4 MG/ML Syringe SUBCUT ONE (11:39)
[2018-10-19] MEDS ORDERED: Sodium Chloride 0.9% 500 ML IV SCH (11:45)
[2018-10-19] MEDS: Ondansetron 4 MG Tab.DIS PO ONE ×3 (12:06→12:10)
[2018-10-19 12:16] LABS: CHLORIDE,CL 103 mEq/L (98-106); SODIUM,NA 138 mEq/L (136-145)
[2018-10-19] MEDS ORDERED: Sodium Chloride 0.9% 500 ML ONE (13:07)
[2018-10-19] MEDS ORDERED: Promethazine 25 MG/ML SDV ONE (13:07)
[2018-10-19] MEDS ORDERED: Promethazine 12.5 MG in Sodium Chloride 0.9% 50 ML IV PRN (13:21)
[2018-10-19] MEDS ORDERED: Morphine 4 MG/ML Syringe IVPUSH PRN (13:22)
[2018-10-19] MEDS ORDERED: Morphine 4 MG/ML Syringe IVPUSH ONE (13:23)
[2018-10-19] MEDS ORDERED: PROMETHAZINE IV STA (13:23)
[2018-10-19] MEDS ORDERED: SODIUM CHLORIDE 0.9% IV STA (13:23)
[2018-10-19] MEDS ORDERED: Iopamidol 612 MG/ML 100 ML Bottle IVPUSH ONE (13:50)
--- NOTE | 2018-10-19 14:02 | EDM.PDOC ---
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 with no exacerbating / alleviating symptoms. Onset: Today, Sudden Duration: Hour(s): Location: Reports: Abdomen Improves with: Reports: None Worsens with: Reports: None Lower Abdominal Pain Score (Numeric/FACES): 10 - Related Data Allergies Allergy/AdvReac Type Severity Reaction Status Date / Time nitrofurantoin Allergy Nausea and Verified 10/19/18 11:32 Vomiting Home Meds: Home Meds Aspirin [Halfprin] 81 mg PO DAILY 01/07/16 [History] Calcium Carb & Citrate/Vit D3 [Calcium + D3 ER Tablet] 2 each PO BID 01/07/16 [ History] Clopidogrel Bisulfate [Clopidogrel] 75 mg PO DAILY 01/07/16 [History] Multivitamin [Multivitamins] 1 each PO DAILY 01/07/16 [History] Nitroglycerin [Nitrolingual] 0.4 gm SL ASDIRECTED PRN 01/07/16 [History] Ubidecarenone [COQ-10] 30 mg PO DAILY 01/07/16 [History] atorvaSTATin Calcium [Atorvastatin Calcium] 40 mg PO BEDTIME 01/07/16 [History] Acetaminophen [Tylenol] 325 mg PO Q4H PRN 07/23/18 [History] Budesonide/Formoterol Fumarate [Symbicort 80-4.5 Mcg Inhaler] 2 inh INH BID PRN 07/23/18 [History] Estradiol [Estrace 0.01% Vaginal Crm] 1 applic VAG ASDIRECTED PRN 07/23/18 [ History] Lutein 12 mg PO DAILY 07/23/18 [History] Ondansetron [Zofran] 4 - 8 mg PO Q4H PRN 07/23/18 [History] Polyethylene Glycol 3350 [MiraLAX] 17 gm PO DAILY 07/23/18 [History] Gabapentin [Neurontin] 300 mg PO TID 10/01/18 [History] Past Medical History HEENT History: Reports: Macular Degeneration Cardiovascular History: Reports: Blood Clots/VTE/DVT, High Cholesterol, Hypertension, Stents Gastrointestinal History: Reports: Chronic Diarrhea Genitourinary History: Reports: UTI, Recurrent 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: Endocrine/Metabolic History: Reports: Osteoporosis Hematologic History: Reports: Blood Transfusion(s) Oncologic (Cancer) History: Reports: Breast - Infectious Disease History Infectious Disease History: Reports: C-Difficile - Past Surgical History GI Surgical History: Reports: Cholecystectomy, Colonoscopy, Polypectomy Female Surgical History: Reports: None Oncologic Surgical History: Reports: Lumpectomy Social & Family History - Family History Family Medical History: Noncontributory - Tobacco Use Smoking Status *Q: Never Smoker - Recreational Drug Use Recreational Drug Use: No ED ROS GENERAL - Review of Systems Review Of Systems: See Below Constitutional: Reports: Weakness, Fatigue. Denies: Fever, Chills, Malaise HEENT: Reports: No Symptoms Respiratory: Reports: No Symptoms Cardiovascular: Reports: No Symptoms Endocrine: Reports: No Symptoms GI/Abdominal: Reports: No Symptoms Musculoskeletal: Reports: No Symptoms Skin: Reports: Pallor Neurological: Reports: No Symptoms Psychiatric: Reports: Depression ED EXAM, GI/ABD - Physical Exam Exam: See Below General Appearance: Alert, WD/WN, Mild Distress Eyes: Bilateral: Pale Conjunctiva Ears: Normal External Exam, Normal Canal, Hearing Grossly Normal, Normal TMs Nose: Normal Inspection, Normal Mucosa Throat/Mouth: Normal Lips, Normal Oropharynx, Normal Voice Head: Atraumatic, Normocephalic Neck: Normal Inspection, Supple, Non-Tender Respiratory/Chest: No Respiratory Distress, Lungs Clear, Normal Breath Sounds Cardiovascular: Normal Peripheral Pulses, Regular Rate, Rhythm, No Edema, No JVD GI/Abdominal Exam: Normal Bowel Sounds, Soft, Tender. No: Abnormal Bowel Sounds , Mass Back Exam: Normal Inspection Extremities: Normal Inspection, Normal Range of Motion, Non-Tender, Normal Capillary Refill Neurological: Alert, Oriented Psychiatric: Depressed Mood Skin Exam: Warm, Dry, Intact, No Rash, Pallor Course - Vital Signs Last Recorded V/S: Last Vital Signs Temp 98.1 F 02/09/19 14:30 Pulse 96 10/19/18 14:30 Resp 18 10/19/18 14:30 BP 105/66 10/19/18 14:30 Pulse Ox 97 10/19/18 14:30 - Orders/Labs/Meds Orders: Active Orders 24 hr Category Date Time Status Abdomen Pelvis w Cont [CT] Stat Exams 10/19/18 13:24 Taken Morphine Med 10/19/18 13:22 Active 4 mg IVPUSH Q2H PRN Sodium Chloride 0.9% [Normal Saline] 500 ml Med 10/19/18 11:45 Active IV .BOLUS Medication Orders Sodium Chloride (Normal Saline) 500 mls @ 500 mls/hr IV .BOLUS GRISEL Last Admin: 10/19/18 12:10 Dose: 500 mls/hr Morphine Sulfate (Morphine) 4 mg IVPUSH Q2H PRN PRN Reason: Abdominal Pain Labs: Laboratory Tests 10/19/18 10/19/18 Range/Units 12:00 12:00 WBC 0.8 L* (5.0-10.0) 10^3/uL RBC 3.03 L (4.00-5.50) 10^6/uL Hgb 9.4 L (12.0-16.0) g/dL Hct 29.1 L (37.0-47.0) % MCV 96.0 H (82.0-94.0) fL MCH 31.0 (27.0-32.0) pg MCHC 32.3 L (33.0-38.0) g/dL RDW Coeff of Levon 14.6 (11.0-15.0) % Plt Count 127 L (150-400) 10^3/uL MPV 9.2 fL Sodium 138 (136-145) mEq/L Potassium 4.3 (3.5-5.0) mEq/L Chloride 103 (98-106) mEq/L Carbon Dioxide 25 (21-32) mmol/L BUN 24 H (7-18) mg/dL Creatinine 0.8 (0.6-1.0) mg/dL Est Cr Clr Drug Dosing 52.15 mL/min Estimated GFR (MDRD) > 60 (>=60) mL/min Glucose 116 H (75-99) mg/dL Calcium 8.7 (8.4-10.1) mg/dL Total Bilirubin 0.5 (0.0-1.0) mg/dL AST 28 (15-37) U/L ALT 36 (12-78) U/L Alkaline Phosphatase 80 (46-116) U/L Total Protein 6.2 L (6.4-8.2) g/dL Albumin 3.0 L (3.4-5.0) g/dL Meds: Medications Generic Name Dose Route Start Last Admin Trade Name [place] PRN Reason Stop Dose Admin Sodium Chloride 500 mls @ 500 mls/hr 10/19/18 11:45 10/19/18 12:10 Normal Saline IV 500 mls/hr .BOLUS GRISEL Administration Morphine Sulfate 4 mg 10/19/18 13:22 Morphine IVPUSH Q2H PRN Abdominal Pain Discontinued Medications Generic Name Dose Route Start Last Admin Trade Name Lizzette PRN Reason Stop Dose Admin Sodium Chloride Confirm 10/19/18 13:07 10/19/18 13:22 Normal Saline Administered 10/19/18 13:08 Not Given Dose 500 mls @ as directed .ROUTE .STK-MED ONE Promethazine HCl 12.5 mg/ 50.5 mls @ 500 mls/hr 10/19/18 13:21 Sodium Chloride IV Q6H PRN Abdominal Pain Promethazine HCl 25 mg/ Sodium 500 mls @ 999 mls/hr 10/19/18 13:23 10/19/18 13:29 Chloride IV 10/19/18 13:53 999 mls/hr NOW STA Administration Iopamidol 100 ml 10/19/18 13:50 10/19/18 14:43 Isovue-300 (61%) IVPUSH 10/19/18 13:51 100 ml ONETIME ONE Administration Morphine Sulfate 4 mg 10/19/18 11:39 10/19/18 12:06 Morphine SUBCUT 10/19/18 11:40 4 mg ONETIME ONE Administration Morphine Sulfate 4 mg 10/19/18 13:23 10/19/18 13:42 Morphine IVPUSH 10/19/18 13:24 4 mg ONETIME ONE Administration Ondansetron HCl 8 mg 10/19/18 11:40 10/19/18 12:10 Zofran Odt PO 10/19/18 11:41 Not Given ONETIME ONE Promethazine HCl Confirm 10/19/18 13:07 10/19/18 13:22 Phenergan Administered 10/19/18 13:08 Not Given Dose 25 mg .ROUTE .STK-MED ONE - Radiology Interpretation Free Text/Narrative:: Spoke with Dr. Carter Radiologist and he states no acute findings in the CT- mild atelectasis in the bases and mild pancratic duct dilitation - otherwise unremarkable. - Re-Assessments/Exams Free Text/Narrative Re-Assessment/Exam: 10/19/18 14:03 Patient had IV established and was given 500NS and 8 mg zofran and Morphine 4mg. and was feeling better for about an hour- and then had pain came back and she had more vomiting. and was given 500NS and phenergan 25mg IV in the saline. Patient was found to have WBC of 0.8 and reverse isolation procedures were initiated. 10/19/18 16:07 patient resting comfortably with family at bedside. Family does not want the patient to go home. call center agent oncologist at [facility] Dr. Kahlil Henderson was consulted. and he was comfortable keepin the patient here as long as she does not have fever. patient 's famliy was made aware of the conversation. 10/19/18 16:12 Departure - Departure Time of Disposition: 16:14 Disposition: Admitted As Inpatient 66 Condition: Fair Clinical Impression: Gastroenteritis Abdominal pain Qualifiers: Abdominal location: generalized Qualified Code(s): R10.84 - Generalized abdominal pain Vomiting Qualifiers: Vomiting type: bilious vomiting Nausea presence: with nausea Qualified Code(s) : R11.14 - Bilious vomiting - Discharge Information Referrals: James Uriarte MD [Primary Care Provider] - Forms: ED Department Discharge - Problem List Review Problem List Initiated/Reviewed/Updated: Yes - My Orders Last 24 Hours: My Active Orders 10/19/18 11:45 Sodium Chloride 0.9% [Normal Saline] 500 ml IV .BOLUS 10/19/18 13:22 Morphine 4 mg IVPUSH Q2H PRN 10/19/18 13:24 Abdomen Pelvis w Cont [CT] Stat - Assessment/Plan Last 24 Hours: My Active Orders 10/19/18 11:45 Sodium Chloride 0.9% [Normal Saline] 500 ml IV .BOLUS 10/19/18 13:22 Morphine 4 mg IVPUSH Q2H PRN 10/19/18 13:24 Abdomen Pelvis w Cont [CT] Stat Plan: Admit for hydration and control of pain and n/v - Please use the ER H &P for admit H & P .
[2018-10-19] MEDS ORDERED: Sodium Chloride 0.9% 1,000 ML ONE (16:28)
[2018-10-19] MEDS: Sodium Chloride 0.9% 1,000 ML IV SCH ×2 (16:50→17:50)
[2018-10-19 17:24] VITALS: BP 120/57
[2018-10-19] MEDS ORDERED: Take Home: Acetaminophen/HYDROcodone 325-5 MG, 2 Tab Pack PO ONE (18:04)
== END 2018-10-19 18:18 | disposition home or self-care (01) ==
LOC: CC.ED 11:30
DX: K52.9 Noninfective gastroenteritis and colitis, unspecified (principal); E78.00 Pure hypercholesterolemia, unspecified; I10 Essential (primary) hypertension; Z88.8 Allergy status to other drugs, medicaments and biological substances; Z79.899 Other long term (current) drug therapy; Z79.82 Long term (current) use of aspirin; Z95.5 Presence of coronary angioplasty implant and graft
CPT/HCPCS: 74177; 80053; 85027; 96361; 96374; 96375; 96376; 99285; A9270-GY; J1642; J2270; J2550; J7030; J7040; J7050; Q9967

== ENCOUNTER 2018-10-22 15:00 | Inpatient (IN) | payer MEDICARE, OTHER ==
[2018-10-22] MEDS ORDERED: Sodium Chloride 0.9% 1,000 ML IV SCH (15:45)
[2018-10-22] MEDS ORDERED: Furosemide 40 MG/4 ML VIAL IVPUSH ONE (16:33)
[2018-10-22] MEDS ORDERED: Pantoprazole 40 MG Vial IVPUSH SCH (16:45)
--- NOTE | 2018-10-22 17:48 | EDM.PDOC ---
ED HPI GENERAL MEDICAL PROBLEM - General Chief Complaint: Fever Stated Complaint: fever Time Seen by Provider: 10/22/18 15:35 Source of Information: Reports: Patient, Family History Limitations: Reports: No Limitations - History of Present Illness INITIAL COMMENTS - FREE TEXT/NARRATIVE: Angeles is a 78yo female who is brought into the ED via [facility] [place]. She was going to be admitted to the alf today and on initial admission assessment she was found to have a fever of 103. [facility] contacted her oncology nurse at [facility] in [place] and was recommended she go directly to the ER. She denies feeling febrile. penitentiary gave her a dose of Tylenol for her fever right away. She had chemotherapy on October 11 for Stage IV ovarian cancer. Prior to coming back to [place] today she had a PET scan done. She states she is scheduled next week to undergo oophorectomy. Upon arrival to ED she had a temp of 101.3. She admits she was suppose to come in for a liter of of IV fluids yesterday but was too weak to come in. Lower Abdomen Pain Score (Numeric/FACES): 9 - Related Data Allergies Allergy/AdvReac Type Severity Reaction Status Date / Time nitrofurantoin Allergy Nausea and Verified 10/22/18 16:49 Vomiting Home Meds: Home Meds Aspirin [Halfprin] 81 mg PO DAILY 01/07/16 [History] Calcium Carb & Citrate/Vit D3 [Calcium + D3 ER Tablet] 2 each PO BID 01/07/16 [ History] Clopidogrel Bisulfate [Clopidogrel] 75 mg PO DAILY 01/07/16 [History] Multivitamin [Multivitamins] 1 each PO DAILY 01/07/16 [History] Nitroglycerin [Nitrolingual] 0.4 gm SL ASDIRECTED PRN 01/07/16 [History] Ubidecarenone [COQ-10] 30 mg PO DAILY 01/07/16 [History] atorvaSTATin Calcium [Atorvastatin Calcium] 40 mg PO BEDTIME 01/07/16 [History] Acetaminophen [Tylenol] 325 mg PO Q4H PRN 07/23/18 [History] Budesonide/Formoterol Fumarate [Symbicort 80-4.5 Mcg Inhaler] 2 inh INH BID PRN 07/23/18 [History] Estradiol [Estrace 0.01% Vaginal Crm] 1 applic VAG ASDIRECTED PRN 07/23/18 [ History] Lutein 12 mg PO DAILY 07/23/18 [History] Ondansetron [Zofran] 4 - 8 mg PO Q4H PRN 07/23/18 [History] Polyethylene Glycol 3350 [MiraLAX] 17 gm PO DAILY 07/23/18 [History] Gabapentin [Neurontin] 300 mg PO TID 10/01/18 [History] Past Medical History HEENT History: Reports: Macular Degeneration Cardiovascular History: Reports: Blood Clots/VTE/DVT, High Cholesterol, Hypertension, Stents Gastrointestinal History: Reports: Chronic Diarrhea Genitourinary History: Reports: UTI, Recurrent 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: Endocrine/Metabolic History: Reports: Osteoporosis Hematologic History: Reports: Blood Transfusion(s) Oncologic (Cancer) History: Reports: Breast - Infectious Disease History Infectious Disease History: Reports: C-Difficile - Past Surgical History GI Surgical History: Reports: Cholecystectomy, Colonoscopy, Polypectomy Female Surgical History: Reports: None Oncologic Surgical History: Reports: Lumpectomy Social & Family History - Family History Family Medical History: Noncontributory - Tobacco Use Smoking Status *Q: Never Smoker - Caffeine Use Caffeine Use: Reports: None - Recreational Drug Use Recreational Drug Use: No ED ROS GENERAL - Review of Systems Review Of Systems: See Below Constitutional: Reports: Fever, Weakness HEENT: Reports: No Symptoms Respiratory: Denies: Shortness of Breath, Wheezing, Cough Cardiovascular: Denies: Chest Pain, Blood Pressure Problem, Edema, Palpitations GI/Abdominal: Reports: No Symptoms : Reports: No Symptoms. Denies: Discharge, Dysuria, Hematuria, Urgency Skin: Reports: No Symptoms Neurological: Reports: No Symptoms Psychiatric: Reports: No Symptoms ED EXAM, SEPSIS - Physical Exam Exam: See Below Exam Limited By: No Limitations General Appearance: Alert, No Apparent Distress Ears: Normal External Exam, Normal Canal, Hearing Grossly Normal, Normal TMs Nose: Normal Inspection, Normal Mucosa, No Blood Throat/Mouth: Normal Inspection, Normal Lips, Normal Gums, Normal Oropharynx, Normal Voice, No Airway Compromise Head: Atraumatic, Normocephalic Neck: Normal Inspection, Supple, Non-Tender Respiratory/Chest: No Respiratory Distress, Lungs Clear, Normal Breath Sounds, No Accessory Muscle Use Cardiovascular: Regular Rate, Rhythm, No Murmur GI/Abdominal Exam: Normal Bowel Sounds, Soft, Non-Tender, No Organomegaly, No Distention, No Abnormal Bruit, No Mass Extremities: Normal Inspection Neurological: Alert, Oriented, Normal Cognition, No Motor/Sensory Deficits Psychiatric: Normal Affect, Normal Mood Skin: Intact, Normal Color, No Rash, Increased Warmth Course - Vital Signs Last Recorded V/S: Last Vital Signs Temp 100.5 F 10/22/18 16:20 Pulse 104 H 10/22/18 15:04 Resp 16 10/22/18 15:04 BP 114/65 10/22/18 15:04 Pulse Ox 97 10/22/18 15:04 - Orders/Labs/Meds Orders: Active Orders 24 hr Category Date Time Status Patient Status Manage Transfer [TRANSFER] Routine ADT 10/22/18 16:45 Ordered Chest 2V [CR] Stat Exams 10/22/18 15:17 Taken CULTURE BLOOD [BC] Stat Lab 10/22/18 16:45 Received CULTURE BLOOD [BC] Stat Lab 10/22/18 16:50 Received CULTURE URINE [RM] Stat Lab 10/22/18 15:43 Received RED BLOOD CELLS LP [BBK] Stat Lab 10/22/18 15:45 Results TYPE AND SCREEN [BBK] Stat Lab 10/22/18 15:45 Results Pantoprazole [ProTONIX IV] Med 10/22/18 16:45 Active 40 mg IVPUSH Q24H Sodium Chloride 0.9% [Normal Saline] 1,000 ml Med 10/22/18 15:45 Active IV ASDIRECTED Blood Culture x2 Reflex Set [OM.PC] Stat Oth 10/22/18 16:25 Ordered Transfuse Red Blood Cells [COMM] Per Unit Routine Oth 10/22/18 16:28 Ordered Resuscitation Status Routine Resus Stat 10/22/18 16:47 Ordered Medication Orders Sodium Chloride (Normal Saline) 1,000 mls @ 999 mls/hr IV ASDIRECTED GRISEL Last Admin: 10/22/18 15:58 Dose: 999 mls/hr Pantoprazole Sodium (Protonix Iv) 40 mg IVPUSH Q24H [facility] Labs: Laboratory Tests 10/22/18 10/22/18 10/22/18 Range/Units 15:43 15:43 15:43 WBC 1.0 L* (5.0-10.0) 10^3/uL RBC 2.44 L (4.00-5.50) 10^6/uL Hgb 7.6 L* (12.0-16.0) g/dL Hct 22.8 L (37.0-47.0) % MCV 93.4 (82.0-94.0) fL MCH 31.1 (27.0-32.0) pg MCHC 33.3 (33.0-38.0) g/dL RDW Coeff of Levon 14.7 (11.0-15.0) % Plt Count 114 L (150-400) 10^3/uL Add Manual Diff Yes Neutrophils % (Manual) Sed High School Teacher Band Neutrophils % 32 H (0-5) % Lymphocytes % (Manual) 32 (21-55) % Monocytes % (Manual) 8 (2-12) % Eosinophils % (Manual) 4 (0-5) % Metamyelocytes % 24 % Absolute Neutrophils 0.32 L (1.80-7.00) 10^3/uL Lymphocytes # (Manual) 0.32 L (1.00-4.80) 10^3/uL Monocytes # (Manual) 0.08 (0.00-0.80) 10^3/uL Eosinophils # (Manual) 0.04 (0.00-0.45) 10^3/uL Sodium 134 L (136-145) mEq/L Potassium 3.7 (3.5-5.0) mEq/L Chloride 100 (98-106) mEq/L Carbon Dioxide 23 (21-32) mmol/L BUN 34 H (7-18) mg/dL Creatinine 1.3 H D (0.6-1.0) mg/dL Est Cr Clr Drug Dosing 32.09 mL/min Estimated GFR (MDRD) 40 L (>=60) mL/min Glucose 130 H (75-99) mg/dL Calcium 7.3 L (8.4-10.1) mg/dL Magnesium (1.8-2.4) mg/dL Total Bilirubin 0.3 (0.0-1.0) mg/dL AST 20 (15-37) U/L ALT 36 (12-78) U/L Alkaline Phosphatase 72 (46-116) U/L C-Reactive Protein 21.4 H (0.2-0.8) mg/dL Total Protein 5.7 L (6.4-8.2) g/dL Albumin 2.1 L (3.4-5.0) g/dL Urine Color Yellow (YELLOW) Urine Appearance Cloudy (CLEAR) Urine pH 5.5 (4.5-8.0) Ur Specific [place] 1.020 (1.003-1.020) Urine Protein >=300 H (NEGATIVE) mg/dL Urine Glucose (UA) Negative (NEGATIVE) mg/dL Urine Ketones Negative (NEGATIVE) mg/dL Urine Occult Blood Small H (NEGATIVE) Urine Nitrite Positive H (NEGATIVE) Urine Bilirubin Negative (NEGATIVE) Urine Urobilinogen 0.2 (0.2-1.0) EU/dL Ur Leukocyte Esterase Trace H (NEGATIVE) Urine RBC 0-5 (0-5) /HPF Urine WBC 20-30 H (0-5) /HPF Ur Epithelial Cells Moderate H (NOT SEEN) /HPF Urine Bacteria Many H (NOT SEEN) /HPF Granular Casts Moderate H (NOT SEEN) /LPF Urinalysis Comment Blood Type Gel Antibody Screen Crossmatch 10/22/18 10/22/18 Range/Units 15:45 15:45 WBC (5.0-10.0) 10^3/uL RBC (4.00-5.50) 10^6/uL Hgb (12.0-16.0) g/dL Hct (37.0-47.0) % MCV (82.0-94.0) fL MCH (27.0-32.0) pg MCHC (33.0-38.0) g/dL RDW Coeff of Levon (11.0-15.0) % Plt Count (150-400) 10^3/uL Add Manual Diff Neutrophils % (Manual) Band Neutrophils % (0-5) % Lymphocytes % (Manual) (21-55) % Monocytes % (Manual) (2-12) % Eosinophils % (Manual) (0-5) % Metamyelocytes % % Absolute Neutrophils (1.80-7.00) 10^3/uL Lymphocytes # (Manual) (1.00-4.80) 10^3/uL Monocytes # (Manual) (0.00-0.80) 10^3/uL Eosinophils # (Manual) (0.00-0.45) 10^3/uL Sodium (136-145) mEq/L Potassium (3.5-5.0) mEq/L Chloride (98-106) mEq/L Carbon Dioxide (21-32) mmol/L BUN (7-18) mg/dL Creatinine (0.6-1.0) mg/dL Est Cr Clr Drug Dosing mL/min Estimated GFR (MDRD) (>=60) mL/min Glucose (75-99) mg/dL Calcium (8.4-10.1) mg/dL Magnesium 1.7 L (1.8-2.4) mg/dL Total Bilirubin (0.0-1.0) mg/dL AST (15-37) U/L ALT (12-78) U/L Alkaline Phosphatase (46-116) U/L C-Reactive Protein (0.2-0.8) mg/dL Total Protein (6.4-8.2) g/dL Albumin (3.4-5.0) g/dL Urine Color (YELLOW) Urine Appearance (CLEAR) Urine pH (4.5-8.0) Ur Specific [place] (1.003-1.020) Urine Protein (NEGATIVE) mg/dL Urine Glucose (UA) (NEGATIVE) mg/dL Urine Ketones (NEGATIVE) mg/dL Urine Occult Blood (NEGATIVE) Urine Nitrite (NEGATIVE) Urine Bilirubin (NEGATIVE) Urine Urobilinogen (0.2-1.0) EU/dL Ur Leukocyte Esterase (NEGATIVE) Urine RBC (0-5) /HPF Urine WBC (0-5) /HPF Ur Epithelial Cells (NOT SEEN) /HPF Urine Bacteria (NOT SEEN) /HPF Granular Casts (NOT SEEN) /LPF Urinalysis Comment Blood Type B POSITIVE Gel Antibody Screen Negative Crossmatch See Detail Meds: Medications Generic Name Dose Route Start Last Admin Trade Name Freq PRN Reason Stop Dose Admin Sodium Chloride 1,000 mls @ 999 mls/hr 10/22/18 15:45 10/22/18 15:58 Normal Saline IV 999 mls/hr ASDIRECTED GRISEL Administration Pantoprazole Sodium 40 mg 10/22/18 16:45 Protonix Iv IVPUSH Q24H GRISEL Discontinued Medications Generic Name Dose Route Start Last Admin Trade Name Freq PRN Reason Stop Dose Admin Furosemide 40 mg 10/22/18 16:33 Lasix IVPUSH 10/22/18 16:34 ONETIME ONE Departure - Departure Time of Disposition: 17:00 Disposition: Admitted As Inpatient 66 Condition: Good Clinical Impression: Neutropenic fever UTI (urinary tract infection) Qualifiers: Urinary tract infection type: site unspecified Hematuria presence: with hematuria Qualified Code(s): N39.0 - Urinary tract infection, site not specified ; R31.9 - Hematuria, unspecified Ovarian cancer Qualifiers: Laterality: unspecified laterality Qualified Code(s): C56.9 - Malignant neoplasm of unspecified ovary - Discharge Information - Problem List & Annotations (1) Neutropenic fever SNOMED Code(s): 953081060 Code(s): D70.9 - NEUTROPENIA, UNSPECIFIED; R50.81 - FEVER PRESENTING WITH CONDITIONS CLASSIFIED ELSEWHERE Status: Acute Current Visit: Yes (2) Ovarian cancer SNOMED Code(s): 224490091 Code(s): C56.9 - MALIGNANT NEOPLASM OF UNSPECIFIED OVARY Status: Acute Current Visit: Yes Qualifiers: Laterality: unspecified laterality Qualified Code(s): C56.9 - Malignant neoplasm of unspecified ovary (3) UTI (urinary tract infection) SNOMED Code(s): 33479559 Code(s): N39.0 - URINARY TRACT INFECTION, SITE NOT SPECIFIED Status: Acute Current Visit: Yes Qualifiers: Urinary tract infection type: site unspecified Hematuria presence: with hematuria Qualified Code(s): N39.0 - Urinary tract infection, site not specified; R31.9 - Hematuria, unspecified - My Orders Last 24 Hours: My Active Orders 10/22/18 15:17 Chest 2V [CR] Stat 10/22/18 15:43 CULTURE URINE [RM] Stat 10/22/18 15:45 RED BLOOD CELLS LP [BBK] Stat TYPE AND SCREEN [BBK] Stat Sodium Chloride 0.9% [Normal Saline] 1,000 ml IV ASDIRECTED 10/22/18 16:25 Blood Culture x2 Reflex Set [OM.PC] Stat 10/22/18 16:28 Transfuse Red Blood Cells [COMM] Per Unit Routine 10/22/18 16:45 Patient Status Manage Transfer [TRANSFER] Routine CULTURE BLOOD [BC] Stat Pantoprazole [ProTONIX IV] 40 mg IVPUSH Q24H 10/22/18 16:47 Resuscitation Status Routine 10/22/18 16:50 CULTURE BLOOD [BC] Stat - Assessment/Plan Admission H&P: Please use this note as an admission H&P Last 24 Hours: My Active Orders 10/22/18 15:17 Chest 2V [CR] Stat 10/22/18 15:43 CULTURE URINE [RM] Stat 10/22/18 15:45 RED BLOOD CELLS LP [BBK] Stat TYPE AND SCREEN [BBK] Stat Sodium Chloride 0.9% [Normal Saline] 1,000 ml IV ASDIRECTED 10/22/18 16:25 Blood Culture x2 Reflex Set [OM.PC] Stat 10/22/18 16:28 Transfuse Red Blood Cells [COMM] Per Unit Routine 10/22/18 16:45 Patient Status Manage Transfer [TRANSFER] Routine CULTURE BLOOD [BC] Stat Pantoprazole [ProTONIX IV] 40 mg IVPUSH Q24H 10/22/18 16:47 Resuscitation Status Routine 10/22/18 16:50 CULTURE BLOOD [BC] Stat Plan: Consulted with Dr. Man's office and recommend hospital admission with transfusion of pRBC's X 2, Neulasta 6mg SC X 1, and Merrem intravenously. Blood cultures are pending. Urine culture is pending. Consent signed for receiving blood products. Will closely monitor. Discussed Dr. Man's office recommendations with Angeles and her family. Both were in agreement.
[2018-10-22] MEDS ORDERED: Non-Formulary Medication 1 Each (Estradiol [Estrace 0.01% Vaginal Crm] 1 APPLIC) VAG PRN (17:50)
[2018-10-22] MEDS ORDERED: Docusate Sodium 100 MG Cap PO PRN (17:50)
[2018-10-22] MEDS ORDERED: Ondansetron 4 MG Tab.DIS PO PRN (17:50)
[2018-10-22] MEDS ORDERED: Formoterol/Mometasone 100-5 MCG 8.8 GM Inhaler IH PRN (17:50)
[2018-10-22] MEDS ORDERED: Nitroglycerin Lingual Spray 4.9 GM Canister TRLING PRN (17:50)
[2018-10-22] MEDS ORDERED: diphenhydrAMINE 50 MG/ML SDV IVPUSH ONE (17:50)
[2018-10-22] MEDS ORDERED: Meropenem 1 GM SDV IVPUSH SCH (18:00)
[2018-10-22] MEDS: Gabapentin 300 MG Cap PO SCH (20:09)
[2018-10-22] MEDS: Acetaminophen 325 MG Tab PO PRN (20:09)
[2018-10-22] MEDS: atorvaSTATin 20 MG Tab PO SCH (20:10)
[2018-10-22] MEDS ORDERED: Furosemide 40 MG/4 ML VIAL ONE (20:25)
[2018-10-22] MEDS: Meropenem 1 GM SDV IVPUSH SCH (23:04)
[2018-10-23] MEDS ORDERED: Meropenem 1 GM SDV IVPUSH SCH
[2018-10-23] MEDS: Acetaminophen 325 MG Tab PO PRN ×4 (00:01→16:54)
[2018-10-23] MEDS: Gabapentin 300 MG Cap PO SCH ×3 (07:43→19:55)
[2018-10-23] MEDS: Polyethylene Glycol 3350 Powder 17 GM Packet PO SCH (07:47)
[2018-10-23] MEDS: Multivitamin Tab PO SCH (09:23)
[2018-10-23] MEDS: Meropenem 1 GM SDV IVPUSH SCH (11:53)
[2018-10-23] MEDS ORDERED: Magnesium Sulfate/D5W 2 GM in Premix Bag 1 BAG IV ONE (18:56)
--- NOTE | 2018-10-23 19:05 | PCM.PN ---
- General Info Date of Service: 10/23/18 Admission Dx/Problem (Free Text): Neutropenia Acute UTI History of metastatic Ovarian Cancer Functional Status: Reports: Tolerating Diet. Denies: Pain Controlled, Ambulating - Review of Systems General: Reports: Fever, Weakness, Fatigue, Malaise HEENT: Reports: No Symptoms Pulmonary: Denies: Shortness of Breath, Cough Cardiovascular: Denies: Chest Pain, Edema, Lightheadedness Gastrointestinal: Reports: Abdominal Pain. Denies: Nausea, Vomiting Genitourinary: Reports: No Symptoms Musculoskeletal: Reports: No Symptoms Skin: Reports: No Symptoms Neurological: Reports: Weakness - Patient Data Vitals - Most Recent: Last Vital Signs Temp 98.8 F 10/23/18 18:00 Pulse 88 10/23/18 16:00 Resp 18 10/23/18 16:00 BP 102/56 L 10/23/18 16:00 Pulse Ox 96 10/23/18 16:00 Weight - Most Recent: 145 lb 3.2 oz Lab Results Last 24 Hours: Laboratory Results - last 24 hr 10/22/18 10/23/18 10/23/18 Range/Units 15:45 07:00 07:04 WBC 2.9 L (5.0-10.0) 10^3/uL RBC 3.07 L (4.00-5.50) 10^6/uL Hgb 9.3 L (12.0-16.0) g/dL Hct 27.7 L (37.0-47.0) % MCV 90.2 (82.0-94.0) fL MCH 30.3 (27.0-32.0) pg MCHC 33.6 (33.0-38.0) g/dL RDW Coeff of Levon 15.7 H (11.0-15.0) % Plt Count 106 L (150-400) 10^3/uL Add Manual Diff Yes Neutrophils % (Manual) 14 L (35-85) % Band Neutrophils % 51 H (0-5) % Lymphocytes % (Manual) 14 L (21-55) % Monocytes % (Manual) 20 H (2-12) % Metamyelocytes % 1 % Nucleated RBCs 1 (0-5) /100WBC Sodium (136-145) mEq/L Potassium (3.5-5.0) mEq/L Chloride (98-106) mEq/L Carbon Dioxide (21-32) mmol/L BUN (7-18) mg/dL Creatinine (0.6-1.0) mg/dL Est Cr Clr Drug Dosing mL/min Estimated GFR (MDRD) (>=60) mL/min Glucose (75-99) mg/dL Calcium (8.4-10.1) mg/dL Magnesium 1.6 L (1.8-2.4) mg/dL C-Reactive Protein (0.2-0.8) mg/dL Blood Type B POSITIVE Gel Antibody Screen Negative Crossmatch See Detail 10/23/18 Range/Units 07:04 WBC (5.0-10.0) 10^3/uL RBC (4.00-5.50) 10^6/uL Hgb (12.0-16.0) g/dL Hct (37.0-47.0) % MCV (82.0-94.0) fL MCH (27.0-32.0) pg MCHC (33.0-38.0) g/dL RDW Coeff of Levon (11.0-15.0) % Plt Count (150-400) 10^3/uL Add Manual Diff Neutrophils % (Manual) (35-85) % Band Neutrophils % (0-5) % Lymphocytes % (Manual) (21-55) % Monocytes % (Manual) (2-12) % Metamyelocytes % % Nucleated RBCs (0-5) /100WBC Sodium 135 L (136-145) mEq/L Potassium 4.1 (3.5-5.0) mEq/L Chloride 103 (98-106) mEq/L Carbon Dioxide 25 (21-32) mmol/L BUN 31 H (7-18) mg/dL Creatinine 1.3 H (0.6-1.0) mg/dL Est Cr Clr Drug Dosing 32.09 mL/min Estimated GFR (MDRD) 40 L (>=60) mL/min Glucose 95 D (75-99) mg/dL Calcium 6.9 L* (8.4-10.1) mg/dL Magnesium (1.8-2.4) mg/dL C-Reactive Protein 22.9 H (0.2-0.8) mg/dL Blood Type Gel Antibody Screen Crossmatch Apolinar Results Last 24 Hours: Microbiology 10/22/18 16:45 Aerobic Blood Culture - Preliminary Blood - Venous NO GROWTH AFTER 1 DAY Anaerobic Blood Culture - Preliminary NO GROWTH AFTER 1 DAY 10/22/18 16:50 Aerobic Blood Culture - Preliminary Blood - Venous - Lab Draw Gram Negative Rods Anaerobic Blood Culture - Preliminary Gram Negative Rods 10/22/18 15:43 Urine Culture - Preliminary Urine, Voided Gram Negative Rods Med Orders - Current: Current Medications Acetaminophen (Tylenol) 650 mg PO Q4H PRN PRN Reason: Pain/Fever Last Admin: 10/23/18 16:54 Dose: 650 mg Atorvastatin Calcium (Lipitor) 40 mg PO BEDTIME [facility] Last Admin: 10/22/18 20:10 Dose: 40 mg Docusate Sodium (Colace) 100 mg PO BID PRN PRN Reason: Constipation Gabapentin (Neurontin) 300 mg PO TID [facility] Last Admin: 10/23/18 14:02 Dose: 300 mg Magnesium Sulfate/Dextrose 2 (gm/ Premix) 200 mls @ 100 mls/hr IV ONETIME ONE Stop: 10/23/18 20:55 Meropenem (Merrem) 1 gm IVPUSH Q12H [facility] Last Admin: 10/23/18 11:53 Dose: 1 gm Mometasone Furoate/Formoterol Fumar (Dulera 100-5 Mcg) 2 puff IH BID PRN PRN Reason: Shortness of Breath Multivitamins/Minerals/Vitamin C (Tab-A-Piyush) 1 tab PO DAILY [facility] Last Admin: 10/23/18 09:23 Dose: 1 tab Nitroglycerin (Nitrolingual) 0.4 gm TRLING ASDIRECTED PRN PRN Reason: Chest Pain Ondansetron HCl (Zofran Odt) 4 - 8 mg PO Q4H PRN PRN Reason: Nausea Pantoprazole Sodium (Protonix Iv) 40 mg IVPUSH 0800 [facility] Polyethylene Glycol (Miralax) 17 gm PO DAILY [facility] Last Admin: 10/23/18 07:47 Dose: Not Given Discontinued Medications Acetaminophen (Tylenol) 325 mg PO Q4H PRN PRN Reason: PAIN Last Admin: 10/23/18 07:49 Dose: 325 mg Diphenhydramine HCl (Benadryl) 25 mg IVPUSH ONETIME ONE Stop: 10/22/18 17:51 Last Admin: 10/22/18 17:58 Dose: 25 mg Furosemide (Lasix) 40 mg IVPUSH ONETIME ONE Stop: 10/22/18 16:34 Last Admin: 10/22/18 20:30 Dose: 40 mg Furosemide (Lasix) Confirm Administered Dose 40 mg .ROUTE .STK-MED ONE Stop: 10/22/18 20:26 Last Admin: 10/22/18 20:46 Dose: Not Given Sodium Chloride (Normal Saline) 1,000 mls @ 999 mls/hr IV ASDIRECTED [facility] Last Admin: 10/22/18 15:58 Dose: 999 mls/hr Meropenem (Merrem) 1 gm IVPUSH Q8H [facility] Non-Formulary Medication (Estradiol [Estrace 0.01% Vaginal Crm]) 1 applic VAG ASDIRECTED PRN PRN Reason: Rash Pantoprazole Sodium (Protonix Iv) 40 mg IVPUSH Q24H [facility] Last Admin: 10/22/18 20:34 Dose: 40 mg Pegfilgrastim (Neulasta) 6 mg SUBCUT ONETIME ONE Stop: 10/22/18 17:51 Last Admin: 10/22/18 20:09 Dose: Not Given Pegfilgrastim (Neulasta) 6 mg SUBCUT ONETIME ONE Stop: 10/23/18 08:01 Last Admin: 10/23/18 09:08 Dose: Not Given - Exam General: Alert, Oriented HEENT: Mucous Membr. Moist/[place] Neck: Supple Lungs: Decreased Breath Sounds Cardiovascular: Regular Rate, Regular Rhythm GI/Abdominal Exam: Normal Bowel Sounds, Soft, Tender Extremities: Normal Inspection Skin: Warm, Dry Neurological: No New Focal Deficit - Problem List & Annotations (1) Neutropenic fever SNOMED Code(s): 757594572 Code(s): D70.9 - NEUTROPENIA, UNSPECIFIED; R50.81 - FEVER PRESENTING WITH CONDITIONS CLASSIFIED ELSEWHERE Status: Acute Priority: High Current Visit : Yes (2) UTI (urinary tract infection) SNOMED Code(s): 41181387 Code(s): N39.0 - URINARY TRACT INFECTION, SITE NOT SPECIFIED Status: Acute Priority: High Current Visit: Yes Qualifiers: Urinary tract infection type: site unspecified Hematuria presence: with hematuria Qualified Code(s): N39.0 - Urinary tract infection, site not specified; R31.9 - Hematuria, unspecified (3) Ovarian cancer SNOMED Code(s): 773517779 Code(s): C56.9 - MALIGNANT NEOPLASM OF UNSPECIFIED OVARY Status: Acute Priority: High Current Visit: Yes Qualifiers: Laterality: unspecified laterality Qualified Code(s): C56.9 - Malignant neoplasm of unspecified ovary (4) Palliative care status SNOMED Code(s): 551007433 Code(s): Z51.5 - ENCOUNTER FOR PALLIATIVE CARE Status: Acute Priority: High Current Visit: Yes - Problem List Review Problem List Initiated/Reviewed/Updated: Yes - My Orders Last 24 Hours: My Active Orders 10/23/18 08:57 Acetaminophen [Tylenol] 650 mg PO Q4H PRN 10/23/18 18:56 Magnesium Sulfate/D5W [Magnesium 1 GM in D5W 100 ML] 2 gm Premix Bag 1 bag IV ONETIME 10/24/18 05:11 MAGNESIUM [CHEM] Routine - Assessment Assessment:: Neutropenic Fever Acute UTI - Plan Plan:: Palliative Care patient admitted yesterday for neutropenic fever. Has acute UTI , only symptoms that she feels has changed is more discomfort in her back. Has chronic abdominal pain related to her ovarian cancer. Had chemo on Sunday, states gets very weak after each session. Had PET scan yesterday, she relates she is "planning for surgery when WBC is improved". Patient does require assist for transfers. Has low grade fevers. WBC improved to 2.9 today, hemoglobin 9.3, CRP 22.9. Calcium low at 6.9. Magnesium was mildly low yesterday at 1.7 so will repeat that today. Initial blood cultures show gram negative rods. Urine was positive, culture also shows gram negative rods. Will continue with IV Meropenum. Monitor labs. IV fluids infusing. Physical therapy for strengthening. Inappropriate for discharge.
[2018-10-23] MEDS: atorvaSTATin 20 MG Tab PO SCH (19:55)
[2018-10-24] MEDS: Meropenem 1 GM SDV IVPUSH SCH (00:14)
[2018-10-24] MEDS: Polyethylene Glycol 3350 Powder 17 GM Packet PO SCH (08:15)
[2018-10-24] MEDS: Gabapentin 300 MG Cap PO SCH ×3 (08:15→19:32)
[2018-10-24] MEDS: Multivitamin Tab PO SCH (08:15)
[2018-10-24] MEDS: Pantoprazole 40 MG Vial IVPUSH SCH (08:16)
[2018-10-24] MEDS: Calcium Carbonate 500 MG Tab.Chew PO SCH ×3 (10:44→19:32)
[2018-10-24] MEDS ORDERED: cefTRIAXone 1 GM Vial IVPUSH SCH (12:00)
--- NOTE | 2018-10-24 15:57 | PCM.PN ---
- General Info Date of Service: 10/24/18 Admission Dx/Problem (Free Text): Neutropenia Acute UTI History of metastatic Ovarian Cancer Functional Status: Reports: Pain Controlled, Tolerating Diet. Denies: Ambulating - Review of Systems General: Reports: Weakness, Fatigue, Malaise HEENT: Reports: No Symptoms Pulmonary: Reports: Shortness of Breath. Denies: Cough Cardiovascular: Denies: Chest Pain, Edema, Lightheadedness Gastrointestinal: Reports: Abdominal Pain, Flatus. Denies: Nausea, Vomiting Genitourinary: Reports: No Symptoms Musculoskeletal: Reports: No Symptoms Skin: Reports: No Symptoms Neurological: Reports: No Symptoms - Patient Data Vitals - Most Recent: Last Vital Signs Temp 97.1 F 10/24/18 12:00 Pulse 92 10/24/18 12:00 Resp 18 10/24/18 12:00 BP 138/75 10/24/18 12:00 Pulse Ox 98 10/24/18 12:00 Weight - Most Recent: 145 lb 3.2 oz Lab Results Last 24 Hours: Laboratory Results - last 24 hr 10/24/18 10/24/18 Range/Units 07:05 07:05 WBC 7.8 (5.0-10.0) 10^3/uL RBC 3.42 L (4.00-5.50) 10^6/uL Hgb 10.7 L (12.0-16.0) g/dL Hct 30.7 L (37.0-47.0) % MCV 89.8 (82.0-94.0) fL MCH 31.3 (27.0-32.0) pg MCHC 34.9 (33.0-38.0) g/dL RDW Coeff of Levon 16.1 H (11.0-15.0) % Plt Count 122 L (150-400) 10^3/uL Neut % (Auto) Floor Finisher Lymph % (Auto) Floor Finisher [place] % (Auto) Floor Finisher Eos % (Auto) Floor Finisher Baso % (Auto) Floor Finisher Neut # (Auto) Floor Finisher Lymph # (Auto) Floor Finisher [place] # (Auto) Floor Finisher Eos # (Auto) Floor Finisher Baso # (Auto) Floor Finisher Add Manual Diff Yes Neutrophils % (Manual) 68 (35-85) % Band Neutrophils % 16 H (0-5) % Lymphocytes % (Manual) 6 L (21-55) % Monocytes % (Manual) 9 (2-12) % Eosinophils % (Manual) 1 (0-5) % Tear Drop Cells Few (NOT SEEN) Sodium 138 (136-145) mEq/L Potassium 4.0 (3.5-5.0) mEq/L Chloride 104 (98-106) mEq/L Carbon Dioxide 24 (21-32) mmol/L BUN 26 H (7-18) mg/dL Creatinine 1.1 H (0.6-1.0) mg/dL Est Cr Clr Drug Dosing 37.93 mL/min Estimated GFR (MDRD) 48 L (>=60) mL/min Glucose 101 H (75-99) mg/dL Calcium 7.0 L (8.4-10.1) mg/dL Magnesium 1.8 (1.8-2.4) mg/dL C-Reactive Protein 21.9 H (0.2-0.8) mg/dL Apolinar Results Last 24 Hours: Microbiology 10/22/18 15:43 Urine Culture - Final Urine, Voided Escherichia Coli 10/22/18 16:50 Aerobic Blood Culture - Final Blood - Venous - Lab Draw Klebsiella Pneumoniae Anaerobic Blood Culture - Preliminary Gram Negative Rods 10/22/18 16:45 Aerobic Blood Culture - Preliminary Blood - Venous NO GROWTH AFTER 1 DAY Anaerobic Blood Culture - Preliminary NO GROWTH AFTER 1 DAY Med Orders - Current: Current Medications Acetaminophen (Tylenol) 650 mg PO Q4H PRN PRN Reason: Pain/Fever Last Admin: 10/23/18 16:54 Dose: 650 mg Atorvastatin Calcium (Lipitor) 40 mg PO BEDTIME [facility] Last Admin: 10/23/18 19:55 Dose: 40 mg Calcium Carbonate/Glycine (Tums) 500 mg PO TID [facility] Last Admin: 10/24/18 14:20 Dose: 500 mg Ceftriaxone Sodium (Rocephin) 1 gm IVPUSH 1200 [facility] Last Admin: 10/24/18 12:41 Dose: 1 gm Docusate Sodium (Colace) 100 mg PO BID PRN PRN Reason: Constipation Gabapentin (Neurontin) 300 mg PO TID [facility] Last Admin: 10/24/18 14:20 Dose: 300 mg Heparin Sodium (Porcine) (Heparin Lock Flush 100 Units/Ml) 500 units FLUSH 1200 [facility] Last Admin: 10/24/18 12:47 Dose: 500 units Magnesium Oxide (Magnesium Oxide) 250 mg PO BIDM [facility] Mometasone Furoate/Formoterol Fumar (Dulera 100-5 Mcg) 2 puff IH BID PRN PRN Reason: Shortness of Breath Multivitamins/Minerals/Vitamin C (Tab-A-Piyush) 1 tab PO DAILY [facility] Last Admin: 10/24/18 08:15 Dose: 1 tab Nitroglycerin (Nitrolingual) 0.4 gm TRLING ASDIRECTED PRN PRN Reason: Chest Pain Ondansetron HCl (Zofran Odt) 4 - 8 mg PO Q4H PRN PRN Reason: Nausea Pantoprazole Sodium (Protonix Iv) 40 mg IVPUSH 0800 [facility] Last Admin: 10/24/18 08:16 Dose: 40 mg Polyethylene Glycol (Miralax) 17 gm PO DAILY [facility] Last Admin: 10/24/18 08:15 Dose: Not Given Discontinued Medications Acetaminophen (Tylenol) 325 mg PO Q4H PRN PRN Reason: PAIN Last Admin: 10/23/18 07:49 Dose: 325 mg Diphenhydramine HCl (Benadryl) 25 mg IVPUSH ONETIME ONE Stop: 10/22/18 17:51 Last Admin: 10/22/18 17:58 Dose: 25 mg Furosemide (Lasix) 40 mg IVPUSH ONETIME ONE Stop: 10/22/18 16:34 Last Admin: 10/22/18 20:30 Dose: 40 mg Furosemide (Lasix) Confirm Administered Dose 40 mg .ROUTE .STK-MED ONE Stop: 10/22/18 20:26 Last Admin: 10/22/18 20:46 Dose: Not Given Sodium Chloride (Normal Saline) 1,000 mls @ 999 mls/hr IV ASDIRECTED [facility] Last Admin: 10/22/18 15:58 Dose: 999 mls/hr Magnesium Sulfate/Dextrose 2 (gm/ Premix) 200 mls @ 100 mls/hr IV ONETIME ONE Stop: 10/23/18 20:55 Last Admin: 10/23/18 19:19 Dose: 100 mls/hr Meropenem (Merrem) 1 gm IVPUSH Q8H [facility] Meropenem (Merrem) 1 gm IVPUSH Q12H [facility] Last Admin: 10/24/18 00:14 Dose: 1 gm Non-Formulary Medication (Estradiol [Estrace 0.01% Vaginal Crm]) 1 applic VAG ASDIRECTED PRN PRN Reason: Rash Pantoprazole Sodium (Protonix Iv) 40 mg IVPUSH Q24H [facility] Last Admin: 10/22/18 20:34 Dose: 40 mg Pegfilgrastim (Neulasta) 6 mg SUBCUT ONETIME ONE Stop: 10/22/18 17:51 Last Admin: 10/22/18 20:09 Dose: Not Given Pegfilgrastim (Neulasta) 6 mg SUBCUT ONETIME ONE Stop: 10/23/18 08:01 Last Admin: 10/23/18 09:08 Dose: Not Given - Exam General: Alert, Oriented HEENT: Mucous Membr. Moist/[place] Neck: Supple Lungs: Clear to Auscultation, Normal Respiratory Effort Cardiovascular: Regular Rate, Regular Rhythm GI/Abdominal Exam: Normal Bowel Sounds, Soft, Non-Tender Extremities: Normal Inspection, No Pedal Edema Skin: Warm, Dry Neurological: No New Focal Deficit - Problem List & Annotations (1) Neutropenic fever SNOMED Code(s): 583083759 Code(s): D70.9 - NEUTROPENIA, UNSPECIFIED; R50.81 - FEVER PRESENTING WITH CONDITIONS CLASSIFIED ELSEWHERE Status: Acute Priority: High Current Visit : Yes (2) UTI (urinary tract infection) SNOMED Code(s): 89451543 Code(s): N39.0 - URINARY TRACT INFECTION, SITE NOT SPECIFIED Status: Acute Priority: High Current Visit: Yes Qualifiers: Urinary tract infection type: site unspecified Hematuria presence: with hematuria Qualified Code(s): N39.0 - Urinary tract infection, site not specified; R31.9 - Hematuria, unspecified (3) Ovarian cancer SNOMED Code(s): 778857313 Code(s): C56.9 - MALIGNANT NEOPLASM OF UNSPECIFIED OVARY Status: Acute Priority: High Current Visit: Yes Qualifiers: Laterality: unspecified laterality Qualified Code(s): C56.9 - Malignant neoplasm of unspecified ovary (4) Palliative care status SNOMED Code(s): 859316799 Code(s): Z51.5 - ENCOUNTER FOR PALLIATIVE CARE Status: Acute Priority: High Current Visit: Yes - Problem List Review Problem List Initiated/Reviewed/Updated: Yes - My Orders Last 24 Hours: My Active Orders 10/23/18 19:49 Abdomen 2V AP Flat Upright [CR] Urgent 10/23/18 20:06 PT Evaluation and Treatment [CONS] Routine 10/24/18 09:35 Calcium Carbonate [Tums] 500 mg PO TID 10/24/18 12:00 Heparin Sodium [Heparin Lock Flush 100 Units/ML] 500 units FLUSH 1200 cefTRIAXone [Rocephin] 1 gm IVPUSH 1200 10/24/18 17:30 Magnesium Oxide 250 mg PO BIDM - Assessment Assessment:: Neutropenic Fever Acute UTI - Plan Plan:: Palliative Care patient admitted yesterday for neutropenic fever. Has acute UTI , only symptoms that she feels has changed is more discomfort in her back. Has chronic abdominal pain related to her ovarian cancer. Had chemo on Sunday, states gets very weak after each session. Had PET scan yesterday, she relates she is "planning for surgery when WBC is improved". Patient does require assist for transfers. Has low grade fevers. WBC improved to 2.9 today, hemoglobin 9.3, CRP 22.9. Calcium low at 6.9. Magnesium was mildly low yesterday at 1.7 so will repeat that today. Initial blood cultures show gram negative rods. Urine was positive, culture also shows gram negative rods. Will continue with IV Meropenum. Monitor labs. IV fluids infusing. Physical therapy for strengthening. Inappropriate for discharge. 10-24-2018 Patient is feeling somewhat better this am. Does admit to weakness, feels need to increase her activity. Did have issues last evening with abdominal distention, abdomen was tympanic. Flat and upright of the abdomen was done, showed ileus. She admits she is passing flatus today and feels better. Has been eating well. Low grade temp at 1600 yesterday, afebrile since. WBC today is up to 7.8. Hemoglobin 10.7. Creatinine 1.1. CRP has improved slightly to 21.9. Calcium 7.0. Urine culture grew out e coli, blood culture shows klebsiella. Will switch to IV Rocephin. TUMS for low calcium. Physical therapy for strengthening. Probable transfer to swing bed tomorrow.
[2018-10-24] MEDS: Acetaminophen 325 MG Tab PO PRN (19:32)
[2018-10-24] MEDS: atorvaSTATin 20 MG Tab PO SCH (19:32)
[2018-10-25] MEDS: Calcium Carbonate 500 MG Tab.Chew PO SCH (07:25)
[2018-10-25] MEDS: Polyethylene Glycol 3350 Powder 17 GM Packet PO SCH (07:25)
[2018-10-25] MEDS: Multivitamin Tab PO SCH (07:26)
[2018-10-25] MEDS: Gabapentin 300 MG Cap PO SCH (07:26)
[2018-10-25] MEDS: Pantoprazole 40 MG Vial IVPUSH SCH (07:26)
[2018-10-25 07:58] LABS: CHLORIDE,CL 106 mEq/L (98-106); SODIUM,NA 140 mEq/L (136-145)
[2018-10-25 08:42] VITALS: BP 143/76
--- NOTE | 2018-10-27 20:43 | PCM.DCSUM1 ---
Discharge Summary - Hospital Course Free Text/Narrative:: Patient is a 78 year old female who presented to ER from [facility] with weakness. She was just admitted there that day and on initial admission was found to have a fever of 103. Juan Angulo did contact the oncology nurse at [facility] as she had just been there for a PET scan adn they recommended to present to [facility] ER. half-way had given her a dose of Tylenol for the fever prior to coming here. She last had chemo on October 11 for Stage IV ovarian cancer. Patient is scheduled next week to undergo an oophorectomy. Labs in the ER were noted to have a low WBC at 1.0, hemoglobin 7.6. Admitted for IV fluids, started on Meropenum and ordered for 2 units of blood. Diagnosis: Stroke: No Modified Francisco Scale: No Symptoms at All Modified [place] Scale Score: 0 - Discharge Data Discharge Date: 10/25/18 Discharge Disposition: DC/Tfer W/I Hosp To Swing 61 Condition: Good - Discharge Diagnosis/Problem(s) (1) Neutropenic fever SNOMED Code(s): 631285266 ICD Code: D70.9 - NEUTROPENIA, UNSPECIFIED; R50.81 - FEVER PRESENTING WITH CONDITIONS CLASSIFIED ELSEWHERE Status: Acute Priority: High (2) UTI (urinary tract infection) SNOMED Code(s): 71421669 ICD Code: N39.0 - URINARY TRACT INFECTION, SITE NOT SPECIFIED Status: Acute Priority: High Qualifiers: Urinary tract infection type: site unspecified Hematuria presence: with hematuria Qualified Code(s): N39.0 - Urinary tract infection, site not specified; R31.9 - Hematuria, unspecified (3) Ovarian cancer SNOMED Code(s): 286607985 ICD Code: C56.9 - MALIGNANT NEOPLASM OF UNSPECIFIED OVARY Status: Acute Priority: High Qualifiers: Laterality: unspecified laterality Qualified Code(s): C56.9 - Malignant neoplasm of unspecified ovary (4) Palliative care status SNOMED Code(s): 086589968 ICD Code: Z51.5 - ENCOUNTER FOR PALLIATIVE CARE Status: Acute Priority: High - Patient Summary/Data Consults: Consultations 10/23/18 20:06 PT Evaluation and Treatment [CONS] Routine Hospital Course: Patient has had good improvement of overall status. Color has improved. Is more alert. Ambulating and eating well. Does continue to feel weak. WBC has recovered, initially up to 7.8, today 5.3. Hemoglobin stable at 10. She did have a positive urine with e coli, blood cultures positive of klebsiella. As both were sensitive to rocephin, antibiotics changed to this. Has now been afebrile. Blood pressure stable. Will transfer to swing bed status for ongoing IV Rocephin. Strengthening with PT. Plan for improving strength, maintaining WBC in hopes to prepare for surgery next week. - Patient Instructions Diet: Usual Diet as Tolerated Activity: As Tolerated - Discharge Plan *PRESCRIPTION DRUG MONITORING PROGRAM REVIEWED*: No *COPY OF PRESCRIPTION DRUG MONITORING REPORT IN PATIENT KATHY: No Home Medications: Home Meds Aspirin [Halfprin] 81 mg PO DAILY 01/07/16 [History] Calcium Carb & Citrate/Vit D3 [Calcium + D3 ER Tablet] 2 each PO BID 01/07/16 [ History] Clopidogrel Bisulfate [Clopidogrel] 75 mg PO DAILY 01/07/16 [History] Multivitamin [Multivitamins] 1 each PO DAILY 01/07/16 [History] Nitroglycerin [Nitrolingual] 0.4 gm SL ASDIRECTED PRN 01/07/16 [History] Ubidecarenone [COQ-10] 30 mg PO DAILY 01/07/16 [History] atorvaSTATin Calcium [Atorvastatin Calcium] 40 mg PO BEDTIME 01/07/16 [History] Acetaminophen [Tylenol] 325 mg PO Q4H PRN 07/23/18 [History] Budesonide/Formoterol Fumarate [Symbicort 80-4.5 Mcg Inhaler] 2 inh INH BID PRN 07/23/18 [History] Estradiol [Estrace 0.01% Vaginal Crm] 1 applic VAG ASDIRECTED PRN 07/23/18 [ History] Lutein 12 mg PO DAILY 07/23/18 [History] Ondansetron [Zofran] 4 - 8 mg PO Q4H PRN 07/23/18 [History] Polyethylene Glycol 3350 [MiraLAX] 17 gm PO DAILY 07/23/18 [History] Gabapentin [Neurontin] 300 mg PO TID 10/01/18 [History] Forms: ED Department Discharge Referrals: James Uriarte MD [Primary Care Provider] - - Discharge Summary/Plan Comment DC Time >30 min.: No - General Info Date of Service: 10/25/18 Admission Dx/Problem (Free Text: Neutropenia Acute UTI History of metastatic Ovarian Cancer Functional Status: Reports: Pain Controlled, Tolerating Diet, Ambulating - Review of Systems General: Reports: Weakness, Fatigue, Malaise HEENT: Reports: No Symptoms Pulmonary: Denies: Shortness of Breath, Cough Cardiovascular: Denies: Chest Pain, Edema, Lightheadedness Gastrointestinal: Reports: Abdominal Pain. Denies: Nausea, Vomiting Genitourinary: Reports: No Symptoms Musculoskeletal: Reports: No Symptoms Skin: Reports: No Symptoms Neurological: Reports: No Symptoms - Patient Data Vitals - Most Recent: Last Vital Signs Temp 98.7 F 10/25/18 08:00 Pulse 91 10/25/18 08:00 Resp 18 10/25/18 08:00 BP 143/76 H 10/25/18 08:00 Pulse Ox 94 L 10/25/18 08:00 Weight - Most Recent: 145 lb 3.2 oz SCOTT Results - Last 24 hrs: Microbiology 10/22/18 16:45 Aerobic Blood Culture - Final Blood - Venous NO GROWTH AFTER 5 DAYS Anaerobic Blood Culture - Final NO GROWTH AFTER 5 DAYS Med Orders - Current: Current Medications Discontinued Medications Acetaminophen (Tylenol) 325 mg PO Q4H PRN PRN Reason: PAIN Last Admin: 10/23/18 07:49 Dose: 325 mg Acetaminophen (Tylenol) 650 mg PO Q4H PRN PRN Reason: Pain/Fever Last Admin: 10/24/18 19:32 Dose: 650 mg Atorvastatin Calcium (Lipitor) 40 mg PO BEDTIME [facility] Last Admin: 10/24/18 19:32 Dose: 40 mg Calcium Carbonate/Glycine (Tums) 500 mg PO TID [facility] Last Admin: 10/25/18 07:25 Dose: 500 mg Ceftriaxone Sodium (Rocephin) 1 gm IVPUSH 1200 [facility] Last Admin: 10/24/18 12:41 Dose: 1 gm Diphenhydramine HCl (Benadryl) 25 mg IVPUSH ONETIME ONE Stop: 10/22/18 17:51 Last Admin: 10/22/18 17:58 Dose: 25 mg Docusate Sodium (Colace) 100 mg PO BID PRN PRN Reason: Constipation Furosemide (Lasix) 40 mg IVPUSH ONETIME ONE Stop: 10/22/18 16:34 Last Admin: 10/22/18 20:30 Dose: 40 mg Furosemide (Lasix) Confirm Administered Dose 40 mg .ROUTE .STK-MED ONE Stop: 10/22/18 20:26 Last Admin: 10/22/18 20:46 Dose: Not Given Gabapentin (Neurontin) 300 mg PO TID [facility] Last Admin: 10/25/18 07:26 Dose: 300 mg Heparin Sodium (Porcine) (Heparin Lock Flush 100 Units/Ml) 500 units FLUSH 1200 [facility] Last Admin: 10/24/18 12:47 Dose: 500 units Sodium Chloride (Normal Saline) 1,000 mls @ 999 mls/hr IV ASDIRECTED [facility] Last Admin: 10/22/18 15:58 Dose: 999 mls/hr Magnesium Sulfate/Dextrose 2 (gm/ Premix) 200 mls @ 100 mls/hr IV ONETIME ONE Stop: 10/23/18 20:55 Last Admin: 10/23/18 19:19 Dose: 100 mls/hr Magnesium Oxide (Magnesium Oxide) 250 mg PO BIDM [facility] Last Admin: 10/25/18 07:25 Dose: 250 mg Meropenem (Merrem) 1 gm IVPUSH Q8H [facility] Meropenem (Merrem) 1 gm IVPUSH Q12H [facility] Last Admin: 10/24/18 00:14 Dose: 1 gm Mometasone Furoate/Formoterol Fumar (Dulera 100-5 Mcg) 2 puff IH BID PRN PRN Reason: Shortness of Breath Multivitamins/Minerals/Vitamin C (Tab-A-Piyush) 1 tab PO DAILY [facility] Last Admin: 10/25/18 07:26 Dose: 1 tab Nitroglycerin (Nitrolingual) 0.4 gm TRLING ASDIRECTED PRN PRN Reason: Chest Pain Non-Formulary Medication (Estradiol [Estrace 0.01% Vaginal Crm]) 1 applic VAG ASDIRECTED PRN PRN Reason: Rash Ondansetron HCl (Zofran Odt) 4 - 8 mg PO Q4H PRN PRN Reason: Nausea Pantoprazole Sodium (Protonix Iv) 40 mg IVPUSH Q24H [facility] Last Admin: 10/22/18 20:34 Dose: 40 mg Pantoprazole Sodium (Protonix Iv) 40 mg IVPUSH 0800 [facility] Last Admin: 10/25/18 07:26 Dose: 40 mg Pegfilgrastim (Neulasta) 6 mg SUBCUT ONETIME ONE Stop: 10/22/18 17:51 Last Admin: 10/22/18 20:09 Dose: Not Given Pegfilgrastim (Neulasta) 6 mg SUBCUT ONETIME ONE Stop: 10/23/18 08:01 Last Admin: 10/23/18 09:08 Dose: Not Given Polyethylene Glycol (Miralax) 17 gm PO DAILY [facility] Last Admin: 10/25/18 07:25 Dose: 17 gm - Exam General: Reports: Alert, Oriented HEENT: Reports: Mucous Membr. Moist/[place]: Reports: Supple Lungs: Reports: Clear to Auscultation, Normal Respiratory Effort Cardiovascular: Reports: Regular Rate, Regular Rhythm GI/Abdominal Exam: Normal Bowel Sounds, Soft, Tender Extremities: Normal Inspection, No Pedal Edema Skin: Reports: Warm, Dry Neurological: Reports: No New Focal Deficit
== END 2018-10-25 09:26 | disposition swing bed (61) | DRG 871 ==
LOC: CC.ED 15:00 → CC.MS 16:47 → UNDOADMIN 17:05 → CC.MS 17:05
PROVIDERS: ADMIT Physician Assistant Medical; ATTEND Family Medicine
PROC: 30233N1 Transfusion of Nonautologous Red Blood Cells into Peripheral Vein, Percutaneous Approach (ICD-10-PCS; principal; 2018-10-22)
DX: A41.59 Other Gram-negative sepsis (principal); D61.810 Antineoplastic chemotherapy induced pancytopenia; D70.9 Neutropenia, unspecified; R50.81 Fever presenting with conditions classified elsewhere; K56.7 Ileus, unspecified; Z66 Do not resuscitate; C56.9 Malignant neoplasm of unspecified ovary; N39.0 Urinary tract infection, site not specified; Z51.5 Encounter for palliative care; B96.20 Unspecified Escherichia coli [E. coli] as the cause of diseases classified elsewhere; R31.9 Hematuria, unspecified; Z85.3 Personal history of malignant neoplasm of breast; I10 Essential (primary) hypertension; T45.1X5A Adverse effect of antineoplastic and immunosuppressive drugs, initial encounter; K52.9 Noninfective gastroenteritis and colitis, unspecified; E78.00 Pure hypercholesterolemia, unspecified; G89.29 Other chronic pain; Z86.718 Personal history of other venous thrombosis and embolism; M81.0 Age-related osteoporosis without current pathological fracture; H35.30 Unspecified macular degeneration; Z88.8 Allergy status to other drugs, medicaments and biological substances; Z95.5 Presence of coronary angioplasty implant and graft; Z90.49 Acquired absence of other specified parts of digestive tract; Z79.02 Long term (current) use of antithrombotics/antiplatelets; Z79.82 Long term (current) use of aspirin; Z79.899 Other long term (current) drug therapy
CPT/HCPCS: 36430; 71046; 74019; 80048; 80053; 81001; 83735; 85025; 86140; 86850; 86900; 86901; 86920; 86922; 87040; 87077; 87086; 87088; 87186; 96360; 96361; 97110-GP; 97162-GP; 99285; A9270-GY; C9113; J0696; J1200; J1642; J1940; J2185; J3475; J7030; P9016

== ENCOUNTER 2018-10-25 08:23 | Inpatient (IN) | payer MEDICARE, OTHER ==
[2018-10-25] MEDS ORDERED: Ondansetron 4 MG Tab.DIS PO PRN (10:03)
[2018-10-25] MEDS ORDERED: Docusate Sodium 100 MG Cap PO PRN (10:03)
[2018-10-25] MEDS ORDERED: Nitroglycerin Lingual Spray 4.9 GM Canister TRLING PRN (10:03)
[2018-10-25] MEDS: cefTRIAXone 1 GM Vial IVPUSH SCH (11:59)
[2018-10-25] MEDS: Calcium Carbonate 500 MG Tab.Chew PO SCH ×2 (14:14→20:23)
[2018-10-25] MEDS: Gabapentin 300 MG Cap PO SCH ×2 (14:14→20:23)
[2018-10-25] MEDS: Simethicone 80 MG Tab.Chew PO PRN (17:01)
[2018-10-25] MEDS: Formoterol/Mometasone 100-5 MCG 8.8 GM Inhaler IH SCH (20:22)
[2018-10-25] MEDS: atorvaSTATin 20 MG Tab PO SCH (20:22)
[2018-10-26] MEDS: Pantoprazole 40 MG Vial IVPUSH SCH (07:15)
[2018-10-26] MEDS: Gabapentin 300 MG Cap PO SCH ×3 (07:15→20:04)
[2018-10-26] MEDS: Simethicone 80 MG Tab.Chew PO PRN (07:15)
[2018-10-26] MEDS: Multivitamin Tab PO SCH (07:15)
[2018-10-26] MEDS: Calcium Carbonate 500 MG Tab.Chew PO SCH ×3 (07:15→20:04)
[2018-10-26] MEDS: Polyethylene Glycol 3350 Powder 17 GM Packet PO SCH (07:48)
[2018-10-26] MEDS ORDERED: Formoterol/Mometasone 100-5 MCG 8.8 GM Inhaler IH PRN (08:15)
[2018-10-26] MEDS: Formoterol/Mometasone 100-5 MCG 8.8 GM Inhaler IH SCH (08:15)
[2018-10-26] MEDS: cefTRIAXone 1 GM Vial IVPUSH SCH (12:08)
[2018-10-26] MEDS: atorvaSTATin 20 MG Tab PO SCH (20:04)
[2018-10-26] MEDS: Acetaminophen 325 MG Tab PO PRN (20:12)
[2018-10-27] MEDS: Polyethylene Glycol 3350 Powder 17 GM Packet PO SCH (08:16)
[2018-10-27] MEDS: Calcium Carbonate 500 MG Tab.Chew PO SCH ×4 (08:16→19:59)
[2018-10-27] MEDS: Multivitamin Tab PO SCH (08:17)
[2018-10-27] MEDS: Pantoprazole 40 MG Vial IVPUSH SCH (08:17)
[2018-10-27] MEDS: Gabapentin 300 MG Cap PO SCH ×3 (08:17→19:54)
[2018-10-27] MEDS: Acetaminophen 325 MG Tab PO PRN (08:20)
[2018-10-27] MEDS: cefTRIAXone 1 GM Vial IVPUSH SCH (11:53)
[2018-10-27] MEDS: Simethicone 80 MG Tab.Chew PO PRN (17:51)
[2018-10-27] MEDS: atorvaSTATin 20 MG Tab PO SCH (19:54)
[2018-10-28 07:17] LABS: CHLORIDE,CL 102 mEq/L (98-106); SODIUM,NA 139 mEq/L (136-145)
[2018-10-28] MEDS: Multivitamin Tab PO SCH (07:40)
[2018-10-28] MEDS: Gabapentin 300 MG Cap PO SCH ×3 (07:40→19:42)
[2018-10-28] MEDS: Calcium Carbonate 500 MG Tab.Chew PO SCH ×3 (07:40→19:42)
[2018-10-28] MEDS: Polyethylene Glycol 3350 Powder 17 GM Packet PO SCH (07:40)
[2018-10-28] MEDS: Pantoprazole 40 MG Vial IVPUSH SCH (07:47)
[2018-10-28] MEDS: cefTRIAXone 1 GM Vial IVPUSH SCH (11:43)
[2018-10-28] MEDS: atorvaSTATin 20 MG Tab PO SCH (19:42)
[2018-10-29] MEDS: Polyethylene Glycol 3350 Powder 17 GM Packet PO SCH (07:35)
[2018-10-29] MEDS: Calcium Carbonate 500 MG Tab.Chew PO SCH ×3 (07:35→20:00)
[2018-10-29] MEDS: Gabapentin 300 MG Cap PO SCH ×3 (07:35→20:00)
[2018-10-29] MEDS: Multivitamin Tab PO SCH (07:35)
[2018-10-29] MEDS: Pantoprazole 40 MG Vial IVPUSH SCH (07:35)
[2018-10-29] MEDS: cefTRIAXone 1 GM Vial IVPUSH SCH (12:30)
[2018-10-29] MEDS: atorvaSTATin 20 MG Tab PO SCH (20:00)
[2018-10-30] MEDS: Multivitamin Tab PO SCH (07:45)
[2018-10-30] MEDS: Gabapentin 300 MG Cap PO SCH ×3 (07:45→19:31)
[2018-10-30] MEDS: Polyethylene Glycol 3350 Powder 17 GM Packet PO SCH (07:45)
[2018-10-30] MEDS: Calcium Carbonate 500 MG Tab.Chew PO SCH ×3 (07:45→19:31)
[2018-10-30] MEDS: Pantoprazole 40 MG Vial IVPUSH SCH (07:51)
[2018-10-30] MEDS: cefTRIAXone 1 GM Vial IVPUSH SCH (12:07)
[2018-10-30] MEDS: Simethicone 80 MG Tab.Chew PO PRN (13:39)
[2018-10-30] MEDS: atorvaSTATin 20 MG Tab PO SCH (19:31)
[2018-10-31] MEDS: Polyethylene Glycol 3350 Powder 17 GM Packet PO SCH (08:05)
[2018-10-31] MEDS: Multivitamin Tab PO SCH (08:05)
[2018-10-31] MEDS: Calcium Carbonate 500 MG Tab.Chew PO SCH ×3 (08:05→19:23)
[2018-10-31] MEDS: Gabapentin 300 MG Cap PO SCH ×3 (08:05→19:23)
[2018-10-31] MEDS ORDERED: Pantoprazole 40 MG Vial ONE (12:21)
[2018-10-31] MEDS: Pantoprazole 40 MG Vial IVPUSH SCH (13:18)
[2018-10-31] MEDS: cefTRIAXone 1 GM Vial IVPUSH SCH (13:18)
[2018-10-31] MEDS: atorvaSTATin 20 MG Tab PO SCH (19:23)
[2018-11-01] MEDS: Gabapentin 300 MG Cap PO SCH ×3 (07:49→19:34)
[2018-11-01] MEDS: Calcium Carbonate 500 MG Tab.Chew PO SCH ×3 (07:49→19:34)
[2018-11-01] MEDS: Multivitamin Tab PO SCH (07:50)
[2018-11-01] MEDS: Pantoprazole 40 MG Vial IVPUSH SCH (07:51)
[2018-11-01] MEDS: Polyethylene Glycol 3350 Powder 17 GM Packet PO SCH (07:53)
[2018-11-01] MEDS: cefTRIAXone 1 GM Vial IVPUSH SCH (12:24)
[2018-11-01] MEDS: atorvaSTATin 20 MG Tab PO SCH (19:34)
[2018-11-02] MEDS: Multivitamin Tab PO SCH (07:40)
[2018-11-02] MEDS: Gabapentin 300 MG Cap PO SCH (07:40)
[2018-11-02] MEDS: Polyethylene Glycol 3350 Powder 17 GM Packet PO SCH (07:40)
[2018-11-02] MEDS: Pantoprazole 40 MG Vial IVPUSH SCH (07:41)
[2018-11-02] MEDS: Calcium Carbonate 500 MG Tab.Chew PO SCH (07:41)
[2018-11-02 10:29] VITALS: BP 127/73
--- NOTE | 2018-11-02 11:25 | PCM.DCSUM1 ---
Discharge Summary - Hospital Course HPI Initial Comments: Angeles is a 78-year-old female who was admitted to the hospital from the emergency department on October 22, 2018 and then to swing bed on October 25, 2018. Patient was originally admitted to the hospital from [facility] with weakness and neutropenic fever after having only been there 1 day. She was found to have a fever of 103 and was sent to the emergency room. She has been undergoing chemotherapy for stage IV ovarian cancer. Urine culture did show E coli and blood cultures did show Klebsiella pneumonia, both of which were sensitive to Rocephin. Patient has continued on IV Rocephin since culture sensitivity identified. Overall throughout hospitalization she has improved. SHe has been undergoing PT for strengthening. WBC has improved from 1.0 on admit to 4.5 today. Hemoglobin stable at 10.7. Patient reports her weakness has improved. She has been up ambulatory. Blood counts have also improved. Patient has been afebrile. Last chemotherapy was October 11 for ovarian cancer. She is scheduled to have oophorectomy Sunday in [place] with Dr. Blancas. She will be discharge from facility with plans to head to [place] for her surgery this week. - Discharge Data Discharge Date: 11/02/18 Discharge Disposition: Home, Self-Care 01 Condition: Fair - Discharge Diagnosis/Problem(s) (1) Sepsis due to Klebsiella pneumoniae SNOMED Code(s): 074669909 ICD Code: A41.4 - SEPSIS DUE TO ANAEROBES Status: Acute (2) Weakness SNOMED Code(s): 60159228 ICD Code: R53.1 - WEAKNESS Status: Acute (3) Neutropenic fever SNOMED Code(s): 210501304 ICD Code: D70.9 - NEUTROPENIA, UNSPECIFIED; R50.81 - FEVER PRESENTING WITH CONDITIONS CLASSIFIED ELSEWHERE Status: Acute Priority: High (4) Ovarian cancer SNOMED Code(s): 927429218 ICD Code: C56.9 - MALIGNANT NEOPLASM OF UNSPECIFIED OVARY Status: Acute Priority: High Qualifiers: Laterality: unspecified laterality Qualified Code(s): C56.9 - Malignant neoplasm of unspecified ovary (5) UTI (urinary tract infection) SNOMED Code(s): 02168338 ICD Code: N39.0 - URINARY TRACT INFECTION, SITE NOT SPECIFIED Status: Acute Priority: High Qualifiers: Urinary tract infection type: site unspecified Hematuria presence: with hematuria Qualified Code(s): N39.0 - Urinary tract infection, site not specified; R31.9 - Hematuria, unspecified (6) Palliative care status SNOMED Code(s): 596734837 ICD Code: Z51.5 - ENCOUNTER FOR PALLIATIVE CARE Status: Acute Priority: High - Patient Summary/Data Consults: Consultations 10/25/18 10:03 PT Evaluation and Treatment [CONS] Routine - Patient Instructions Diet: Usual Diet as Tolerated Activity: As Tolerated Notify Provider of: Fever, Increased Pain, Nausea and/or Vomiting - Discharge Plan *PRESCRIPTION DRUG MONITORING PROGRAM REVIEWED*: Not Applicable *COPY OF PRESCRIPTION DRUG MONITORING REPORT IN PATIENT KATHY: Not Applicable Prescriptions/Med Rec: Magnesium Oxide 250 mg PO BIDM 30 Days #60 tablet Simethicone 80 mg PO Q4H PRN #30 tab.chew PRN Reason: Gas Home Medications: Home Meds Aspirin [Halfprin] 81 mg PO DAILY 01/07/16 [History] Calcium Carb & Citrate/Vit D3 [Calcium + D3 ER Tablet] 2 each PO BID 01/07/16 [ History] Multivitamin [Multivitamins] 1 each PO DAILY 01/07/16 [History] Nitroglycerin [Nitrolingual] 0.4 gm SL ASDIRECTED PRN 01/07/16 [History] Ubidecarenone [COQ-10] 30 mg PO DAILY 01/07/16 [History] atorvaSTATin Calcium [Atorvastatin Calcium] 40 mg PO BEDTIME 01/07/16 [History] Acetaminophen [Tylenol] 325 mg PO Q4H PRN 07/23/18 [History] Budesonide/Formoterol Fumarate [Symbicort 80-4.5 Mcg Inhaler] 2 inh INH BID PRN 07/23/18 [History] Estradiol [Estrace 0.01% Vaginal Crm] 1 applic VAG ASDIRECTED PRN 07/23/18 [ History] Lutein 12 mg PO DAILY 07/23/18 [History] Ondansetron [Zofran] 4 - 8 mg PO Q4H PRN 07/23/18 [History] Polyethylene Glycol 3350 [MiraLAX] 17 gm PO DAILY 07/23/18 [History] Gabapentin [Neurontin] 300 mg PO TID 10/01/18 [History] Magnesium Oxide 250 mg PO BIDM 30 Days #60 tablet 11/02/18 [Rx] Simethicone 80 mg PO Q4H PRN #30 tab.chew 11/02/18 [Rx] Oxygen Therapy Mode: Room Air - Discharge Summary/Plan Comment DC Time >30 min.: No - General Info Date of Service: 11/02/18 Admission Dx/Problem (Free Text: Weakness UTI Sepsis Neutropenic Fever Subjective Update: Patient reports she is feeling well today. Wishes to be discharged today so her and her family can head to [place] for her surgery, which is scheduled Sunday with Dr. Blancas. She reports overall she has been feeling well. Continues to be weak. Has been tolerating diet. Has been ambulating. Has been afebrile. Functional Status: Reports: Pain Controlled, Tolerating Diet, Ambulating, Urinating. Denies: New Symptoms - Review of Systems General: Reports: Weakness, Fatigue. Denies: Fever, Malaise, Chills HEENT: Reports: No Symptoms Pulmonary: Reports: No Symptoms. Denies: Shortness of Breath, Pleuritic Chest Pain, Cough, Sputum, Wheezing Cardiovascular: Reports: No Symptoms. Denies: Chest Pain, Dyspnea on Exertion, Edema, Lightheadedness Gastrointestinal: Reports: Abdominal Pain. Denies: Constipation, Decreased Appetite, Diarrhea, Hematochezia, Melena, Nausea, Vomiting Genitourinary: Reports: No Symptoms. Denies: Dysuria, Burning Musculoskeletal: Reports: No Symptoms Skin: Reports: No Symptoms Neurological: Reports: No Symptoms Psychiatric: Reports: No Symptoms - Patient Data Vitals - Most Recent: Last Vital Signs Temp 97.7 F 11/02/18 08:00 Pulse 86 11/02/18 08:00 Resp 20 11/02/18 08:00 BP 127/73 11/02/18 08:00 Pulse Ox 97 11/02/18 08:00 Weight - Most Recent: 138 lb Med Orders - Current: Current Medications Acetaminophen (Tylenol) 650 mg PO Q4H PRN PRN Reason: Pain/Fever Last Admin: 10/27/18 08:20 Dose: 650 mg Atorvastatin Calcium (Lipitor) 40 mg PO BEDTIME [facility] Last Admin: 11/01/18 19:34 Dose: 40 mg Calcium Carbonate/Glycine (Tums) 500 mg PO TID [facility] Last Admin: 11/02/18 07:41 Dose: 500 mg Ceftriaxone Sodium (Rocephin) 1 gm IVPUSH WITHLUNCH [facility] Last Admin: 11/01/18 12:24 Dose: 1 gm Docusate Sodium (Colace) 100 mg PO BID PRN PRN Reason: Constipation Last Admin: 10/26/18 07:15 Dose: 100 mg Gabapentin (Neurontin) 300 mg PO TID [facility] Last Admin: 11/02/18 07:40 Dose: 300 mg Heparin Sodium (Porcine) (Heparin Lock Flush 100 Units/Ml) 500 units FLUSH 1200 [facility] Last Admin: 11/01/18 12:24 Dose: 500 units Magnesium Oxide (Magnesium Oxide) 250 mg PO BIDM [facility] Last Admin: 11/02/18 07:40 Dose: 250 mg Mometasone Furoate/Formoterol Fumar (Dulera 100-5 Mcg) 2 puff IH BID PRN PRN Reason: Dyspnea Multivitamins/Minerals/Vitamin C (Tab-A-Piyush) 1 tab PO DAILY [facility] Last Admin: 11/02/18 07:40 Dose: 1 tab Nitroglycerin (Nitrolingual) 0.4 gm TRLING ASDIRECTED PRN PRN Reason: Chest Pain Ondansetron HCl (Zofran Odt) 4 - 8 mg PO Q4H PRN PRN Reason: Nausea Pantoprazole Sodium (Protonix Iv) 40 mg IVPUSH DAILY [facility] Last Admin: 11/02/18 07:41 Dose: 40 mg Polyethylene Glycol (Miralax) 17 gm PO DAILY [facility] Last Admin: 11/02/18 07:40 Dose: Not Given Simethicone (Simethicone) 80 mg PO Q4H PRN PRN Reason: Gas Last Admin: 10/30/18 13:39 Dose: 80 mg Discontinued Medications Ceftriaxone Sodium (Rocephin) 1 gm IVPUSH 1200 [facility] Last Admin: 10/30/18 12:07 Dose: 1 gm Mometasone Furoate/Formoterol Fumar (Dulera 100-5 Mcg) 2 puff IH BID [facility] Last Admin: 10/26/18 08:15 Dose: Not Given Pantoprazole Sodium (Protonix Iv) 40 mg IVPUSH 0800 [facility] Last Admin: 10/31/18 13:18 Dose: 40 mg Pantoprazole Sodium (Protonix Iv) Confirm Administered Dose 40 mg .ROUTE .STK -MED ONE Stop: 10/31/18 12:22 Last Admin: 10/31/18 13:19 Dose: Not Given - Exam General: Reports: Alert, Oriented Neck: Reports: Supple Lungs: Reports: Clear to Auscultation, Normal Respiratory Effort, Decreased Breath Sounds Cardiovascular: Reports: Regular Rate, Regular Rhythm GI/Abdominal Exam: Normal Bowel Sounds, Soft, Tender (mild tenderness lower abdomen) Back Exam: Reports: Normal Inspection, Full Range of Motion Extremities: Normal Inspection, Normal Range of Motion, Non-Tender, No Pedal Edema, Normal Capillary Refill Skin: Reports: Warm, Dry, Intact Neurological: Reports: No New Focal Deficit Psy/Mental Status: Reports: Alert, Normal Affect, Normal Mood
== END 2018-11-02 11:55 | disposition home or self-care (01) | DRG 871 ==
LOC: CC.MS 08:23 → UNDOADMIN 09:30 → CC.MS 10-29 16:07
PROVIDERS: ADMIT Family Medicine; ATTEND Family Medicine
DX: A41.59 Other Gram-negative sepsis (principal); D61.810 Antineoplastic chemotherapy induced pancytopenia; N39.0 Urinary tract infection, site not specified; C56.9 Malignant neoplasm of unspecified ovary; Z51.5 Encounter for palliative care; R50.81 Fever presenting with conditions classified elsewhere; T45.1X5A Adverse effect of antineoplastic and immunosuppressive drugs, initial encounter; R31.9 Hematuria, unspecified; B96.20 Unspecified Escherichia coli [E. coli] as the cause of diseases classified elsewhere; Z79.82 Long term (current) use of aspirin; Z79.899 Other long term (current) drug therapy
CPT/HCPCS: 80048; 83735; 85025; 86140; 94640; 97110-GP; A9270-GY; C9113; J0696; J1642

== ENCOUNTER 2018-11-07 09:24 | Inpatient (IN) | payer MEDICARE, OTHER ==
[2018-11-07] MEDS ORDERED: Enoxaparin 40 MG/0.4 ML Syringe SUBCUT SCH (17:00)
[2018-11-07] MEDS ORDERED: Simethicone 80 MG Tab.Chew PO PRN (17:04)
[2018-11-07] MEDS ORDERED: Ondansetron 4 MG Tab.DIS PO PRN (17:04)
[2018-11-07] MEDS: Acetaminophen 325 MG Tab PO PRN (18:29)
[2018-11-07] MEDS: atorvaSTATin 20 MG Tab PO SCH (20:06)
[2018-11-07] MEDS: Enoxaparin 40 MG/0.4 ML Syringe SUBCUT SCH (20:06)
[2018-11-07] MEDS: Gabapentin 300 MG Cap PO SCH (20:06)
[2018-11-07] MEDS: Calcium Carbonate/Vitamin D3 1250 MG-200 Unit Tab PO SCH (20:06)
[2018-11-07] MEDS: Formoterol/Mometasone 100-5 MCG 8.8 GM Inhaler IH SCH (20:11)
--- NOTE | 2018-11-07 21:20 | PCM.HP ---
H&P History of Present Illness - General Date of Service: 11/07/18 Admit Problem/Dx: Admission Diagnosis/Problem Admission Diagnosis/Problem Weakness Source of Information: Patient, Old Records History Limitations: Reports: No Limitations - History of Present Illness Initial Comments - Free Text/Narative: Patient admitted for ongoing weakness s/p metastatic ovarian cancer with recent robotic total laparascopic hysterectomy, bilateral salpingo-oopharectomy, omentectomy. Patient has had 3 previous chemo therapy sessions prior to surgery. Had been here recently due to sepsis related to a UTI. Received IV antibiotics and physical therapy but was continuing therapy due to weakness when discharged for this surgery. Patient has stage IV ovarian cancer. CA-125 was 2268 when tested in July. Pleural fluid was positive for malignancy. Duration of Symptoms: Reports: Day(s): Location: Reports: Abdomen Quality: Reports: Ache, Dull Severity: Mild Improves with: Reports: Rest Worsens with: Reports: Movement Bilateral Abdomen Pain Score (Numeric/FACES): 2 - Related Data Allergies/Adverse Reactions: Allergies Allergy/AdvReac Type Severity Reaction Status Date / Time nitrofurantoin Allergy Nausea and Verified 10/22/18 16:49 Vomiting Home Medications: Home Meds Aspirin [Halfprin] 81 mg PO DAILY 01/07/16 [History] Calcium Carb & Citrate/Vit D3 [Calcium + D3 ER Tablet] 2 each PO BID 01/07/16 [ History] Multivitamin [Multivitamins] 1 each PO DAILY 01/07/16 [History] Nitroglycerin [Nitrolingual] 0.4 gm SL ASDIRECTED PRN 01/07/16 [History] Ubidecarenone [COQ-10] 30 mg PO DAILY 01/07/16 [History] atorvaSTATin Calcium [Atorvastatin Calcium] 40 mg PO BEDTIME 01/07/16 [History] Acetaminophen [Tylenol] 325 mg PO Q4H PRN 07/23/18 [History] Budesonide/Formoterol Fumarate [Symbicort 80-4.5 Mcg Inhaler] 2 inh INH BID PRN 07/23/18 [History] Lutein 12 mg PO DAILY 07/23/18 [History] Ondansetron [Zofran] 4 - 8 mg PO Q4H PRN 07/23/18 [History] Polyethylene Glycol 3350 [MiraLAX] 17 gm PO DAILY PRN 07/23/18 [History] Gabapentin [Neurontin] 300 mg PO TID 10/01/18 [History] Magnesium Oxide 250 mg PO BIDM 30 Days #60 tablet 11/02/18 [Rx] Simethicone 80 mg PO Q4H PRN #30 tab.chew 11/02/18 [Rx] Clopidogrel Bisulfate [Clopidogrel] 75 mg PO DAILY 11/07/18 [History] Past Medical History HEENT History: Reports: Macular Degeneration Cardiovascular History: Reports: Blood Clots/VTE/DVT, High Cholesterol, Hypertension, Stents Gastrointestinal History: Reports: Chronic Diarrhea Genitourinary History: Reports: UTI, Recurrent [employer] History: Reports: Endocrine/Metabolic History: Reports: Osteoporosis Hematologic History: Reports: Blood Transfusion(s) Oncologic (Cancer) History: Reports: Breast - Infectious Disease History Infectious Disease History: Reports: C-Difficile - Past Surgical History GI Surgical History: Reports: Cholecystectomy, Colonoscopy, Polypectomy Female Surgical History: Reports: None Oncologic Surgical History: Reports: Lumpectomy Social & Family History - Family History Family Medical History: Noncontributory - Caffeine Use Caffeine Use: Reports: None H&P Review of Systems - Review of Systems: Review Of Systems: See Below General: Reports: Weakness, Fatigue. Denies: Fever, Chills, Malaise HEENT: Reports: No Symptoms Pulmonary: Denies: Shortness of Breath, Cough Cardiovascular: Denies: Chest Pain, Edema, Lightheadedness Gastrointestinal: Reports: Abdominal Pain, Decreased Appetite. Denies: Nausea, Vomiting Genitourinary: Reports: No Symptoms Musculoskeletal: Reports: Back Pain, Leg Pain Skin: Reports: Other (abdominal incisions related to recent surgery) Psychiatric: Reports: No Symptoms Exam - Exam Exam: See Below - Vital Signs Vital Signs: Last Vital Signs Temp 97.9 F 11/07/18 18:59 Pulse 72 11/07/18 18:59 Resp 20 11/07/18 18:59 BP 131/63 11/07/18 18:59 Pulse Ox 94 L 11/07/18 18:59 Weight: 143 lb 9.6 oz - Exam General: Alert, Oriented HEENT: Conjunctiva Clear, Nares Patent, Posterior Pharynx Clear Neck: Supple Lungs: Clear to Auscultation, Normal Respiratory Effort Cardiovascular: Regular Rate, Regular Rhythm GI/Abdominal Exam: Normal Bowel Sounds, Soft, Tender Extremities: Normal Inspection, Pedal Edema (trace) Skin: Warm, Dry, Incision (7 puncture incisions to abdomen. Clean and dry) Neuro Extensive - Mental Status: Alert, Oriented x3 Psychiatric: Alert - Problem List (1) Weakness SNOMED Code(s): 21374422 ICD Code: R53.1 - WEAKNESS Status: Acute Priority: High Current Visit: Yes (2) History of hysterectomy for cancer SNOMED Code(s): 452336085 ICD Code: Z90.710 - ACQUIRED ABSENCE OF BOTH CERVIX AND UTERUS; C80.1 - MALIGNANT (PRIMARY) NEOPLASM, UNSPECIFIED Status: Acute Priority: High Current Visit: Yes (3) Ovarian cancer SNOMED Code(s): 270884431 ICD Code: C56.9 - MALIGNANT NEOPLASM OF UNSPECIFIED OVARY Status: Acute Priority: High Current Visit: Yes Qualifiers: Laterality: right Qualified Code(s): C56.1 - Malignant neoplasm of right ovary; C56.0 - Malignant neoplasm of right ovary Problem List Initiated/Reviewed/Updated: Yes Orders Last 24hrs: Active Orders 24 hr Category Date Time Status Patient Status [ADT] Routine ADT 11/07/18 16:56 Active Communication Order [RC] 08 Care 11/07/18 16:56 Active Oxygen Therapy [RC] .PRN Care 11/07/18 16:56 Active Up With Assistance [RC] .PRN Care 11/07/18 16:56 Active Vital Signs [RC] 08 Care 11/07/18 16:56 Active PT Evaluation and Treatment [CONS] Routine Cons 11/07/18 16:56 Active Regular Diet [DIET] Diet 11/07/18 Dinner Active Acetaminophen [Tylenol] Med 11/07/18 17:04 Active 325 mg PO Q4H PRN Acetaminophen [Tylenol] Med 11/07/18 16:56 Active 650 mg PO Q4H PRN Aspirin [Halfprin] Med 11/08/18 08:00 Active 81 mg PO DAILY Calcium Carbonate/Vitamin D3 [Calcium Carbonate/Vitamin Med 11/07/18 20:00 Active D 1250 MG-200 Unit] 2 tab PO BID Clopidogrel [Plavix] Med 11/08/18 08:00 Active 75 mg PO DAILY Enoxaparin [Lovenox] Med 11/07/18 20:00 Active 40 mg SUBCUT DAILY Gabapentin [Neurontin] Med 11/07/18 20:00 Active 300 mg PO TID Lutein [Lutein] Med 11/08/18 08:00 Pending 12 mg PO DAILY Magnesium Oxide Med 11/07/18 17:30 Active 250 mg PO BIDM Mometasone/Formoterol [Dulera 100-5 MCG] Med 11/07/18 20:00 Active 2 puff IH BID Multivitamins [Tab-A-Piyush] Med 11/08/18 08:00 Active 1 tab PO DAILY Ondansetron Med 11/07/18 17:04 Pending 4 - 8 mg PO Q4H PRN Ondansetron [Zofran ODT] Med 11/07/18 16:56 Active 4 mg PO Q4H PRN Polyethylene Glycol 3350 [MiraLAX] Med 11/07/18 17:04 Active 17 gm PO DAILY PRN Simethicone Med 11/07/18 17:04 Active 80 mg PO Q4H PRN Ubidecarenone [COQ-10] Med 11/08/18 08:00 Pending 30 mg PO DAILY atorvaSTATin [Lipitor] Med 11/07/18 20:00 Active 40 mg PO BEDTIME Resuscitation Status Routine Resus Stat 11/07/18 16:56 Ordered Medication Orders Acetaminophen (Tylenol) 650 mg PO Q4H PRN PRN Reason: Pain (Mild 1-3)/fever Last Admin: 11/07/18 18:29 Dose: 650 mg Acetaminophen (Tylenol) 325 mg PO Q4H PRN PRN Reason: Pain Aspirin (Halfprin) 81 mg PO DAILY [facility] Atorvastatin Calcium (Lipitor) 40 mg PO BEDTIME [facility] Last Admin: 11/07/18 20:06 Dose: 40 mg Calcium Carbonate (Calcium Carbonate/Vitamin D 1250 Mg-200 Unit) 2 tab PO BID [facility] Last Admin: 11/07/18 20:06 Dose: 2 tab Clopidogrel Bisulfate (Plavix) 75 mg PO DAILY [facility] Enoxaparin Sodium (Lovenox) 40 mg SUBCUT DAILY@1999 [facility] Last Admin: 11/07/18 20:06 Dose: 40 mg Gabapentin (Neurontin) 300 mg PO TID [facility] Last Admin: 11/07/18 20:06 Dose: 300 mg Magnesium Oxide (Magnesium Oxide) 250 mg PO BIDM [facility] Last Admin: 02/28/19 18:26 Dose: 250 mg Mometasone Furoate/Formoterol Fumar (Dulera 100-5 Mcg) 2 puff IH BID [facility] Last Admin: 11/07/18 20:11 Dose: 2 puff Multivitamins/Minerals/Vitamin C (Tab-A-Piyush) 1 tab PO DAILY [facility] Non-Formulary Medication (Lutein [Lutein]) 12 mg PO DAILY [facility] Non-Formulary Medication (Ondansetron) 4 - 8 mg PO Q4H PRN PRN Reason: Nausea Non-Formulary Medication (Ubidecarenone [Coq-10]) 30 mg PO DAILY [facility] Ondansetron HCl (Zofran Odt) 4 mg PO Q4H PRN PRN Reason: nausea, able to take PO Polyethylene Glycol (Miralax) 17 gm PO DAILY PRN PRN Reason: Constipation Simethicone (Simethicone) 80 mg PO Q4H PRN PRN Reason: Gas Assessment/Plan Comment:: 1. Weakness 2. Stage IV Ovarian Cancer 3. S\P robotic total laparascopic hysterectomy, bilateral salpingo-oopharectomy , omentectomy Admitted swing bed status for ongoing physical therapy
[2018-11-08] MEDS: Acetaminophen 325 MG Tab PO PRN ×2 (06:13→12:13)
[2018-11-08] MEDS: Ondansetron 4 MG Tab.DIS PO PRN (06:54)
[2018-11-08] MEDS: Formoterol/Mometasone 100-5 MCG 8.8 GM Inhaler IH SCH ×2 (07:34→20:02)
[2018-11-08] MEDS: Aspirin 81 MG Tab.EC PO SCH (07:34)
[2018-11-08] MEDS: Multivitamin Tab PO SCH (07:34)
[2018-11-08] MEDS: Clopidogrel 75 MG Tab PO SCH (07:34)
[2018-11-08] MEDS: Calcium Carbonate/Vitamin D3 1250 MG-200 Unit Tab PO SCH ×2 (07:34→20:00)
[2018-11-08] MEDS: Gabapentin 300 MG Cap PO SCH ×3 (07:34→20:01)
[2018-11-08] MEDS ORDERED: LUTEIN 12 MG PO SCH (08:00)
[2018-11-08] MEDS ORDERED: UBIDECARENONE 30 MG PO SCH (08:00)
[2018-11-08] MEDS: Enoxaparin 40 MG/0.4 ML Syringe SUBCUT SCH (20:00)
[2018-11-08] MEDS: atorvaSTATin 20 MG Tab PO SCH (20:01)
[2018-11-09] MEDS: Acetaminophen 325 MG Tab PO PRN (04:13)
[2018-11-09] MEDS: Calcium Carbonate/Vitamin D3 1250 MG-200 Unit Tab PO SCH ×2 (08:07→19:29)
[2018-11-09] MEDS: Multivitamin Tab PO SCH (08:08)
[2018-11-09] MEDS: Gabapentin 300 MG Cap PO SCH ×3 (08:08→19:29)
[2018-11-09] MEDS: Aspirin 81 MG Tab.EC PO SCH (08:08)
[2018-11-09] MEDS: Clopidogrel 75 MG Tab PO SCH (08:08)
[2018-11-09] MEDS: Formoterol/Mometasone 100-5 MCG 8.8 GM Inhaler IH SCH ×2 (08:09→19:29)
[2018-11-09 08:33] LABS: CHLORIDE,CL 104 mEq/L (98-106); SODIUM,NA 140 mEq/L (136-145)
[2018-11-09] MEDS: Ondansetron 4 MG Tab.DIS PO PRN ×2 (09:05→18:00)
[2018-11-09] MEDS: Polyethylene Glycol 3350 Powder 17 GM Packet PO PRN (13:42)
[2018-11-09] MEDS: atorvaSTATin 20 MG Tab PO SCH (19:29)
[2018-11-09] MEDS: Enoxaparin 40 MG/0.4 ML Syringe SUBCUT SCH (19:29)
[2018-11-10] MEDS: Formoterol/Mometasone 100-5 MCG 8.8 GM Inhaler IH SCH ×2 (09:31→19:12)
[2018-11-10] MEDS: Calcium Carbonate/Vitamin D3 1250 MG-200 Unit Tab PO SCH ×2 (09:31→19:11)
[2018-11-10] MEDS: Aspirin 81 MG Tab.EC PO SCH (09:31)
[2018-11-10] MEDS: Multivitamin Tab PO SCH (09:32)
[2018-11-10] MEDS: Gabapentin 300 MG Cap PO SCH ×3 (09:32→19:11)
[2018-11-10] MEDS: Clopidogrel 75 MG Tab PO SCH (09:32)
[2018-11-10] MEDS: Ondansetron 4 MG Tab.DIS PO PRN (17:35)
[2018-11-10] MEDS: atorvaSTATin 20 MG Tab PO SCH (19:11)
[2018-11-10] MEDS: Enoxaparin 40 MG/0.4 ML Syringe SUBCUT SCH (19:12)
[2018-11-11] MEDS: Formoterol/Mometasone 100-5 MCG 8.8 GM Inhaler IH SCH ×2 (07:51→19:46)
[2018-11-11] MEDS: Gabapentin 300 MG Cap PO SCH ×3 (07:51→19:46)
[2018-11-11] MEDS: Clopidogrel 75 MG Tab PO SCH (07:51)
[2018-11-11] MEDS: Multivitamin Tab PO SCH (07:52)
[2018-11-11] MEDS: Calcium Carbonate/Vitamin D3 1250 MG-200 Unit Tab PO SCH ×2 (07:52→19:46)
[2018-11-11] MEDS: Aspirin 81 MG Tab.EC PO SCH (07:52)
[2018-11-11] MEDS: Ondansetron 4 MG Tab.DIS PO PRN ×3 (07:57→16:18)
[2018-11-11] MEDS: Polyethylene Glycol 3350 Powder 17 GM Packet PO PRN (07:59)
[2018-11-11] MEDS ORDERED: Magnesium Citrate Solution 296 ML Bottle PO ONE (09:17)
[2018-11-11] MEDS: Sertraline 25 MG Tab PO SCH (19:46)
[2018-11-11] MEDS: Enoxaparin 40 MG/0.4 ML Syringe SUBCUT SCH (19:46)
[2018-11-11] MEDS: atorvaSTATin 20 MG Tab PO SCH (19:46)
[2018-11-12] MEDS: Ondansetron 4 MG Tab.DIS PO PRN (09:16)
[2018-11-12] MEDS: Calcium Carbonate/Vitamin D3 1250 MG-200 Unit Tab PO SCH ×2 (09:33→19:38)
[2018-11-12] MEDS: Gabapentin 300 MG Cap PO SCH ×3 (09:33→19:38)
[2018-11-12] MEDS: Formoterol/Mometasone 100-5 MCG 8.8 GM Inhaler IH SCH ×2 (09:34→19:39)
[2018-11-12] MEDS: Clopidogrel 75 MG Tab PO SCH (09:34)
[2018-11-12] MEDS: Aspirin 81 MG Tab.EC PO SCH (09:34)
[2018-11-12] MEDS: Multivitamin Tab PO SCH (09:37)
[2018-11-12] MEDS: Enoxaparin 40 MG/0.4 ML Syringe SUBCUT SCH (19:38)
[2018-11-12] MEDS: atorvaSTATin 20 MG Tab PO SCH (19:38)
[2018-11-12] MEDS: Sertraline 25 MG Tab PO SCH (19:38)
[2018-11-13] MEDS: Ondansetron 4 MG Tab.DIS PO PRN ×2 (02:03→13:47)
[2018-11-13] MEDS: Aspirin 81 MG Tab.EC PO SCH (07:49)
[2018-11-13] MEDS: Multivitamin Tab PO SCH (07:49)
[2018-11-13] MEDS: Clopidogrel 75 MG Tab PO SCH (07:49)
[2018-11-13] MEDS: Gabapentin 300 MG Cap PO SCH ×3 (07:50→20:29)
[2018-11-13] MEDS: Formoterol/Mometasone 100-5 MCG 8.8 GM Inhaler IH SCH ×2 (07:50→20:32)
[2018-11-13] MEDS: Calcium Carbonate/Vitamin D3 1250 MG-200 Unit Tab PO SCH ×2 (07:50→20:29)
[2018-11-13] MEDS: Enoxaparin 40 MG/0.4 ML Syringe SUBCUT SCH (20:29)
[2018-11-13] MEDS: atorvaSTATin 20 MG Tab PO SCH (20:29)
[2018-11-13] MEDS: Sertraline 25 MG Tab PO SCH (20:30)
[2018-11-14] MEDS: Clopidogrel 75 MG Tab PO SCH (08:04)
[2018-11-14] MEDS: Gabapentin 300 MG Cap PO SCH ×3 (08:04→19:39)
[2018-11-14] MEDS: Aspirin 81 MG Tab.EC PO SCH (08:04)
[2018-11-14] MEDS: Multivitamin Tab PO SCH (08:05)
[2018-11-14] MEDS: Formoterol/Mometasone 100-5 MCG 8.8 GM Inhaler IH SCH (08:05)
[2018-11-14] MEDS: Calcium Carbonate/Vitamin D3 1250 MG-200 Unit Tab PO SCH ×3 (08:05→17:22)
[2018-11-14] MEDS: Ondansetron 4 MG Tab.DIS PO PRN (08:50)
[2018-11-14] MEDS ORDERED: Formoterol/Mometasone 100-5 MCG 8.8 GM Inhaler IH PRN (11:03)
[2018-11-14] MEDS ORDERED: Calcium Carbonate/Vitamin D3 1250 MG-200 Unit Tab PO SCH (14:00)
[2018-11-14] MEDS: Enoxaparin 40 MG/0.4 ML Syringe SUBCUT SCH (19:39)
[2018-11-14] MEDS: atorvaSTATin 20 MG Tab PO SCH (19:39)
[2018-11-14] MEDS: Sertraline 25 MG Tab PO SCH (19:39)
[2018-11-15] MEDS: Clopidogrel 75 MG Tab PO SCH (08:12)
[2018-11-15] MEDS: Calcium Carbonate/Vitamin D3 1250 MG-200 Unit Tab PO SCH ×3 (08:13→17:25)
[2018-11-15] MEDS: Gabapentin 300 MG Cap PO SCH ×3 (08:13→19:32)
[2018-11-15] MEDS: Aspirin 81 MG Tab.EC PO SCH (08:13)
[2018-11-15] MEDS: Ondansetron 4 MG Tab.DIS PO PRN ×2 (08:14→12:09)
[2018-11-15] MEDS: Multivitamin Tab PO SCH (08:14)
[2018-11-15] MEDS: Acetaminophen 325 MG Tab PO PRN ×2 (12:08→15:17)
[2018-11-15] MEDS: Sertraline 25 MG Tab PO SCH (19:32)
[2018-11-15] MEDS: atorvaSTATin 20 MG Tab PO SCH (19:32)
[2018-11-15] MEDS: Enoxaparin 40 MG/0.4 ML Syringe SUBCUT SCH (19:33)
[2018-11-16] MEDS: Multivitamin Tab PO SCH (07:39)
[2018-11-16] MEDS: Calcium Carbonate/Vitamin D3 1250 MG-200 Unit Tab PO SCH ×3 (07:39→17:39)
[2018-11-16] MEDS: Clopidogrel 75 MG Tab PO SCH (07:39)
[2018-11-16] MEDS: Aspirin 81 MG Tab.EC PO SCH (07:39)
[2018-11-16] MEDS: Gabapentin 300 MG Cap PO SCH ×3 (07:39→19:33)
[2018-11-16] MEDS: Acetaminophen 325 MG Tab PO PRN (09:47)
[2018-11-16] MEDS: Ondansetron 4 MG Tab.DIS PO PRN (09:47)
[2018-11-16] MEDS: Enoxaparin 40 MG/0.4 ML Syringe SUBCUT SCH (19:33)
[2018-11-16] MEDS: atorvaSTATin 20 MG Tab PO SCH (19:33)
[2018-11-16] MEDS: Sertraline 25 MG Tab PO SCH (19:33)
[2018-11-17] MEDS: Multivitamin Tab PO SCH (07:43)
[2018-11-17] MEDS: Clopidogrel 75 MG Tab PO SCH (07:43)
[2018-11-17] MEDS: Calcium Carbonate/Vitamin D3 1250 MG-200 Unit Tab PO SCH ×3 (07:44→16:54)
[2018-11-17] MEDS: Aspirin 81 MG Tab.EC PO SCH (07:44)
[2018-11-17] MEDS: Gabapentin 300 MG Cap PO SCH ×3 (07:44→19:27)
[2018-11-17] MEDS: Ondansetron 4 MG Tab.DIS PO PRN (16:54)
[2018-11-17] MEDS: Acetaminophen 325 MG Tab PO PRN (16:54)
[2018-11-17] MEDS: Enoxaparin 40 MG/0.4 ML Syringe SUBCUT SCH (19:27)
[2018-11-17] MEDS: Sertraline 25 MG Tab PO SCH (19:27)
[2018-11-17] MEDS: atorvaSTATin 20 MG Tab PO SCH (19:27)
[2018-11-18] MEDS: Ondansetron 4 MG Tab.DIS PO PRN ×2 (04:15→09:24)
[2018-11-18] MEDS: Clopidogrel 75 MG Tab PO SCH (07:29)
[2018-11-18] MEDS: Multivitamin Tab PO SCH (07:29)
[2018-11-18] MEDS: Calcium Carbonate/Vitamin D3 1250 MG-200 Unit Tab PO SCH ×2 (07:30→11:49)
[2018-11-18] MEDS: Gabapentin 300 MG Cap PO SCH ×3 (07:30→20:02)
[2018-11-18] MEDS: Aspirin 81 MG Tab.EC PO SCH (07:30)
[2018-11-18] MEDS: Enoxaparin 40 MG/0.4 ML Syringe SUBCUT SCH (20:01)
[2018-11-18] MEDS: Sertraline 25 MG Tab PO SCH (20:02)
[2018-11-18] MEDS: atorvaSTATin 20 MG Tab PO SCH (20:02)
[2018-11-19] MEDS: Clopidogrel 75 MG Tab PO SCH (07:49)
[2018-11-19] MEDS: Gabapentin 300 MG Cap PO SCH ×3 (07:49→19:26)
[2018-11-19] MEDS: Aspirin 81 MG Tab.EC PO SCH (07:49)
[2018-11-19] MEDS: Sertraline 25 MG Tab PO SCH (19:26)
[2018-11-19] MEDS: atorvaSTATin 20 MG Tab PO SCH (19:26)
[2018-11-19] MEDS: Enoxaparin 40 MG/0.4 ML Syringe SUBCUT SCH (19:26)
[2018-11-20] MEDS: Gabapentin 300 MG Cap PO SCH ×3 (07:28→19:30)
[2018-11-20] MEDS: Aspirin 81 MG Tab.EC PO SCH (07:28)
[2018-11-20] MEDS: Clopidogrel 75 MG Tab PO SCH (07:28)
[2018-11-20] MEDS: Sertraline 25 MG Tab PO SCH (19:30)
[2018-11-20] MEDS: atorvaSTATin 20 MG Tab PO SCH (19:30)
[2018-11-20] MEDS: Enoxaparin 40 MG/0.4 ML Syringe SUBCUT SCH (19:31)
[2018-11-21] MEDS: Gabapentin 300 MG Cap PO SCH ×3 (07:41→19:20)
[2018-11-21] MEDS: Clopidogrel 75 MG Tab PO SCH (07:41)
[2018-11-21] MEDS: Aspirin 81 MG Tab.EC PO SCH (07:41)
[2018-11-21] MEDS: atorvaSTATin 20 MG Tab PO SCH (19:20)
[2018-11-21] MEDS: Sertraline 25 MG Tab PO SCH (19:21)
[2018-11-21] MEDS: Enoxaparin 40 MG/0.4 ML Syringe SUBCUT SCH (19:21)
[2018-11-22] MEDS: Gabapentin 300 MG Cap PO SCH (07:33)
[2018-11-22] MEDS: Aspirin 81 MG Tab.EC PO SCH (07:33)
[2018-11-22] MEDS: Clopidogrel 75 MG Tab PO SCH (07:34)
[2018-11-22 09:15] VITALS: BP 116/63
[2018-11-22] MEDS: Lidocaine/Prilocaine 2.5-2.5% Crm 5 GM Tube TOP ONE ×2 (12:32→12:33)
--- NOTE | 2018-11-22 20:56 | PCM.DCSUM1 ---
Discharge Summary - Hospital Course Free Text/Narrative:: Patient returned back to swing bed after a complete hysterectomy/omentectomy with ongoing weakness. Patient had been in swing bed, recovering from sepsis. History of stage IV ovarian cancer. Had completed 3 rounds of chemo. Presented with weakness and fever. Found to have UTI, sepsis related to it. During her swing bed stay, was discharged in order to proceed with surgery. Admitted for ongoing physical therapy for weakness. Diagnosis: Stroke: No Modified [place] Scale: No Symptoms at All Modified [place] Scale Score: 0 - Discharge Data Discharge Date: 11/22/18 Discharge Disposition: Home, W Home Health Agency 06 Condition: Good - Discharge Diagnosis/Problem(s) (1) Weakness SNOMED Code(s): 16519393 ICD Code: R53.1 - WEAKNESS Status: Acute Priority: High (2) History of hysterectomy for cancer SNOMED Code(s): 739143144 ICD Code: Z90.710 - ACQUIRED ABSENCE OF BOTH CERVIX AND UTERUS; C80.1 - MALIGNANT (PRIMARY) NEOPLASM, UNSPECIFIED Status: Acute Priority: High (3) Ovarian cancer SNOMED Code(s): 433394544 ICD Code: C56.9 - MALIGNANT NEOPLASM OF UNSPECIFIED OVARY Status: Acute Priority: High Qualifiers: Laterality: right Qualified Code(s): C56.1 - Malignant neoplasm of right ovary; C56.0 - Malignant neoplasm of right ovary - Patient Summary/Data Complications: none Consults: Consultations 11/07/18 16:56 PT Evaluation and Treatment [CONS] Routine Hospital Course: Patient is doing much better than initial swing bed stay. Is recovering well from surgery. Has 6 puncture wounds to abdomen, healing well. Abdomen is mildly tender with palpation. `Appetite is good. Is ambulating about in hallways with walker per self. Vital signs have remained normal. Patient was experiencing nausea intermittently through stay. Vitamins/ magnesium and calcium held as patient/family felt occurred after taking. Patient not taking any pain meds except Tylenol. Was due for follow up appointment with DR. Le yesterday but due to inclement weather, was rescheduled for December. Will be discussing further treatment plan at that time. Discharge home with Home Health. Nursing to continue to monitor blood pressure , pain level, abdominal wounds. Physical and occupation therapy for strengthening, ability to manage own cares at home. Patient homebound due to weakness, recovering from surgery/cancer. Dr. Uriarte to oversee plan of care. - Patient Instructions Diet: Usual Diet as Tolerated Activity: As Tolerated - Discharge Plan *PRESCRIPTION DRUG MONITORING PROGRAM REVIEWED*: No *COPY OF PRESCRIPTION DRUG MONITORING REPORT IN PATIENT KATHY: No Prescriptions/Med Rec: Sertraline [Zoloft] 25 mg PO BEDTIME #30 tablet Home Medications: Home Meds Aspirin [Halfprin] 81 mg PO DAILY 01/07/16 [History] Nitroglycerin [Nitrolingual] 0.4 gm SL ASDIRECTED PRN 01/07/16 [History] Ubidecarenone [COQ-10] 30 mg PO DAILY 01/07/16 [History] atorvaSTATin Calcium [Atorvastatin Calcium] 40 mg PO BEDTIME 01/07/16 [History] Acetaminophen [Tylenol] 325 mg PO Q4H PRN 07/23/18 [History] Budesonide/Formoterol Fumarate [Symbicort 80-4.5 Mcg Inhaler] 2 inh INH BID PRN 07/23/18 [History] Ondansetron [Zofran] 4 - 8 mg PO Q4H PRN 07/23/18 [History] Polyethylene Glycol 3350 [MiraLAX] 17 gm PO DAILY PRN 07/23/18 [History] Gabapentin [Neurontin] 300 mg PO TID 10/01/18 [History] Simethicone 80 mg PO Q4H PRN #30 tab.chew 11/02/18 [Rx] Clopidogrel Bisulfate [Clopidogrel] 75 mg PO DAILY 11/07/18 [History] Sertraline [Zoloft] 25 mg PO BEDTIME #30 tablet 11/22/18 [Rx] Referrals: James Uriarte MD [Primary Care Provider] - (Follow up with Dr. Uriarte in one week) - Discharge Summary/Plan Comment DC Time >30 min.: No - General Info Date of Service: 11/22/18 Admission Dx/Problem (Free Text: Admission Diagnosis/Problem Admission Diagnosis/Problem Weakness Functional Status: Reports: Pain Controlled, Tolerating Diet, Ambulating - Review of Systems General: Reports: Weakness, Fatigue HEENT: Reports: No Symptoms Pulmonary: Denies: Shortness of Breath, Cough Cardiovascular: Denies: Chest Pain, Edema, Lightheadedness Gastrointestinal: Reports: Abdominal Pain. Denies: Constipation, Diarrhea, Nausea, Vomiting Genitourinary: Denies: Dysuria Musculoskeletal: Reports: No Symptoms Skin: Reports: Other (incisions ) Neurological: Reports: No Symptoms - Patient Data Vitals - Most Recent: Last Vital Signs Temp 98.4 F 11/22/18 08:00 Pulse 83 11/22/18 08:00 Resp 16 11/22/18 08:00 BP 116/63 11/22/18 08:00 Pulse Ox 98 11/22/18 08:00 Weight - Most Recent: 135 lb 9.6 oz Med Orders - Current: Current Medications Discontinued Medications Acetaminophen (Tylenol) 650 mg PO Q4H PRN PRN Reason: Pain (Mild 1-3)/fever Last Admin: 11/17/18 16:54 Dose: 650 mg Acetaminophen (Tylenol) 325 mg PO Q4H PRN PRN Reason: Pain Last Admin: 11/15/18 15:17 Dose: 325 mg Aspirin (Halfprin) 81 mg PO DAILY [facility] Last Admin: 11/22/18 07:33 Dose: 81 mg Atorvastatin Calcium (Lipitor) 40 mg PO BEDTIME [facility] Last Admin: 11/21/18 19:20 Dose: 40 mg Calcium Carbonate (Calcium Carbonate/Vitamin D 1250 Mg-200 Unit) 2 tab PO BID [facility] Last Admin: 11/14/18 08:05 Dose: 2 tab Calcium Carbonate (Calcium Carbonate/Vitamin D 1250 Mg-200 Unit) 1 tab PO TIDMEALS [facility] Last Admin: 11/18/18 11:49 Dose: Not Given Clopidogrel Bisulfate (Plavix) 75 mg PO DAILY [facility] Last Admin: 11/22/18 07:34 Dose: 75 mg Enoxaparin Sodium (Lovenox) 40 mg SUBCUT Q24H [facility] Last Admin: 11/07/18 19:01 Dose: Not Given Enoxaparin Sodium (Lovenox) 40 mg SUBCUT DAILY@1999 [facility] Last Admin: 11/21/18 19:21 Dose: 40 mg Gabapentin (Neurontin) 300 mg PO TID [facility] Last Admin: 11/22/18 07:33 Dose: 300 mg Heparin Sodium (Porcine) (Heparin Lock Flush 100 Units/Ml) 500 units FLUSH ASDIRECTED PRN PRN Reason: Other Last Admin: 11/22/18 12:30 Dose: 500 units Lidocaine/Prilocaine (Emla Crm) 1 gm TOP ONETIME ONE Stop: 11/22/18 11:40 Last Admin: 11/22/18 12:33 Dose: Not Given Magnesium Citrate (Citrate Of Magnesia) 74 ml PO ONETIME ONE Stop: 11/11/18 09:18 Last Admin: 11/11/18 10:20 Dose: 74 ml Magnesium Oxide (Magnesium Oxide) 250 mg PO BIDM [facility] Last Admin: 11/18/18 07:29 Dose: 250 mg Mometasone Furoate/Formoterol Fumar (Dulera 100-5 Mcg) 2 puff IH BID [facility] Last Admin: 11/14/18 08:05 Dose: Not Given Mometasone Furoate/Formoterol Fumar (Dulera 100-5 Mcg) 0 puff IH BIDRT PRN PRN Reason: Dyspnea Multivitamins/Minerals/Vitamin C (Tab-A-Piyush) 1 tab PO DAILY [facility] Last Admin: 11/18/18 07:29 Dose: 1 tab Non-Formulary Medication (Lutein [Lutein]) 12 mg PO DAILY [facility] Last Admin: 11/08/18 12:25 Dose: Not Given Non-Formulary Medication (Ubidecarenone [Coq-10]) 30 mg PO DAILY [facility] Last Admin: 11/08/18 12:25 Dose: Not Given Ondansetron HCl (Zofran Odt) 4 mg PO Q4H PRN PRN Reason: nausea, able to take PO Last Admin: 11/18/18 09:24 Dose: 4 mg Ondansetron HCl (Zofran Odt) 4 - 8 mg PO Q4H PRN PRN Reason: Nausea Last Admin: 11/12/18 09:38 Dose: 4 mg Polyethylene Glycol (Miralax) 17 gm PO DAILY PRN PRN Reason: Constipation Last Admin: 11/11/18 07:59 Dose: 17 gm Sertraline HCl (Zoloft) 25 mg PO BEDTIME [facility] Last Admin: 11/21/18 19:21 Dose: 25 mg Simethicone (Simethicone) 80 mg PO Q4H PRN PRN Reason: Gas - Exam General: Reports: Alert, Oriented HEENT: Reports: Mucous Membr. Moist/[place] Neck: Reports: Supple Lungs: Reports: Clear to Auscultation, Normal Respiratory Effort Cardiovascular: Reports: Regular Rate, Regular Rhythm GI/Abdominal Exam: Normal Bowel Sounds, Soft, Non-Tender Extremities: Normal Inspection, No Pedal Edema Skin: Reports: Warm, Dry Neurological: Reports: No New Focal Deficit
== END 2018-11-22 13:10 | disposition home health service (06) | DRG 948 ==
LOC: UNDOADMIN 15:24 → CC.MS 15:24
PROVIDERS: ADMIT Family Medicine; ATTEND Family Medicine
DX: R53.1 Weakness (principal); R11.0 Nausea; H35.30 Unspecified macular degeneration; E78.00 Pure hypercholesterolemia, unspecified; I10 Essential (primary) hypertension; K52.9 Noninfective gastroenteritis and colitis, unspecified; M81.0 Age-related osteoporosis without current pathological fracture; Z85.43 Personal history of malignant neoplasm of ovary; Z90.710 Acquired absence of both cervix and uterus; Z79.82 Long term (current) use of aspirin; Z79.899 Other long term (current) drug therapy; Z90.722 Acquired absence of ovaries, bilateral; Z88.8 Allergy status to other drugs, medicaments and biological substances; Z86.718 Personal history of other venous thrombosis and embolism; Z95.5 Presence of coronary angioplasty implant and graft; Z87.440 Personal history of urinary (tract) infections; Z85.3 Personal history of malignant neoplasm of breast; Z90.49 Acquired absence of other specified parts of digestive tract
CPT/HCPCS: 36415; 80048; 85025; 87040; 97110-GP; 97161-GP; A9270-GY; J1642; J1650

== ENCOUNTER 2018-12-27 11:12 | Inpatient (IN) | payer MEDICARE, OTHER ==
[2018-12-27] MEDS ORDERED: Acetaminophen 325 MG Tab PO PRN (12:31)
[2018-12-27] MEDS ORDERED: Ondansetron 4 MG/2 ML SDV IV PRN (12:31)
[2018-12-27] MEDS ORDERED: Sodium Chloride 0.9% 10 ML Syringe FLUSH PRN (12:31)
[2018-12-27] MEDS ORDERED: Ondansetron 4 MG Tab.DIS PO PRN (12:31)
[2018-12-27] MEDS ORDERED: Non-Formulary Medication 1 Each (Acetaminophen [Tylenol] 325 MG) PO PRN (12:36)
[2018-12-27] MEDS ORDERED: Polyethylene Glycol 3350 Powder 17 GM Packet PO PRN (12:36)
[2018-12-27 13:00] LABS: CHLORIDE,CL 103 mEq/L (98-106); SODIUM,NA 134 mEq/L (136-145)
[2018-12-27] MEDS: Pantoprazole 40 MG Vial IVPUSH SCH ×2 (14:36→19:24)
[2018-12-27] MEDS: Gabapentin 300 MG Cap PO SCH ×2 (14:36→19:24)
[2018-12-27] MEDS: Sodium Chloride 0.9% 1,000 ML IV SCH ×2 (14:37→23:58)
[2018-12-27] MEDS: Enoxaparin 40 MG/0.4 ML Syringe SUBCUT SCH (16:30)
[2018-12-27] MEDS: Sertraline 25 MG Tab PO SCH (19:24)
[2018-12-27] MEDS ORDERED: Formoterol/Mometasone 200-5 MCG 8.8 GM Inhaler IH PRN (20:00)
[2018-12-28] MEDS: Gabapentin 300 MG Cap PO SCH ×3 (07:43→20:09)
[2018-12-28] MEDS: Metoprolol Succinate 25 MG Tab.ER PO SCH (07:43)
[2018-12-28] MEDS: Pantoprazole 40 MG Vial IVPUSH SCH ×2 (07:43→20:09)
[2018-12-28] MEDS: Aspirin 81 MG Tab.EC PO SCH (07:43)
[2018-12-28] MEDS: Clopidogrel 75 MG Tab PO SCH (07:43)
[2018-12-28 08:04] LABS: CHLORIDE,CL 107 mEq/L (98-106); SODIUM,NA 136 mEq/L (136-145)
[2018-12-28] MEDS: Sodium Chloride 0.9% 1,000 ML IV SCH ×2 (09:04→19:00)
[2018-12-28] MEDS ORDERED: cefTRIAXone 1 GM Vial IVPUSH SCH (11:30)
[2018-12-28] MEDS: Nystatin Susp 100,000 Unit/ML 5 ML UD Cup PO SCH ×3 (12:40→20:09)
--- NOTE | 2018-12-28 12:41 | PCM.PN ---
- General Info Date of Service: 12/28/18 Admission Dx/Problem (Free Text): Weakness Diarrhea Functional Status: Reports: Pain Controlled, Tolerating Diet (does complain of mouth burning/soreness making it difficult to eat), Ambulating, Urinating - Review of Systems General: Reports: Weakness, Fatigue, Malaise, Chills HEENT: Reports: Other (sore mouth) Pulmonary: Denies: Shortness of Breath, Cough, Wheezing Cardiovascular: Denies: Chest Pain, Edema, Lightheadedness Gastrointestinal: Reports: Abdominal Pain. Denies: Nausea, Vomiting Genitourinary: Reports: Frequency Musculoskeletal: Reports: Back Pain Skin: Reports: No Symptoms Neurological: Reports: Weakness - Patient Data Vitals - Most Recent: Last Vital Signs Temp 97.8 F 12/28/18 08:00 Pulse 83 12/28/18 08:00 Resp 20 12/28/18 08:00 BP 131/67 12/28/18 08:00 Pulse Ox 96 12/28/18 08:00 Weight - Most Recent: 135 lb I&O - Last 24 Hours: Intake & Output 12/27/18 12/28/18 12/28/18 22:59 06:59 14:59 Intake Total 400 1235 910 Output Total 400 1300 Balance 0 -65 910 Lab Results Last 24 Hours: Laboratory Results - last 24 hr 12/27/18 12/27/18 12/27/18 Range/Units 12:31 12:47 12:47 WBC 0.9 L* (5.0-10.0) 10^3/uL RBC 2.65 L (4.00-5.50) 10^6/uL Hgb 9.1 L (12.0-16.0) g/dL Hct 26.1 L (37.0-47.0) % MCV 98.5 H (82.0-94.0) fL MCH 34.3 H (27.0-32.0) pg MCHC 34.9 (33.0-38.0) g/dL RDW Coeff of Levon 13.7 (11.0-15.0) % Plt Count 102 L (150-400) 10^3/uL Neut % (Auto) Adaptive Physical Education Specialist Lymph % (Auto) Adaptive Physical Education Specialist [place] % (Auto) Adaptive Physical Education Specialist Eos % (Auto) Adaptive Physical Education Specialist Baso % (Auto) Adaptive Physical Education Specialist Neut # (Auto) Adaptive Physical Education Specialist Lymph # (Auto) Adaptive Physical Education Specialist [place] # (Auto) Adaptive Physical Education Specialist Eos # (Auto) Adaptive Physical Education Specialist Baso # (Auto) Adaptive Physical Education Specialist Add Manual Diff Yes Neutrophils % (Manual) 4 L (35-85) % Lymphocytes % (Manual) 72 H (21-55) % Monocytes % (Manual) 8 (2-12) % Eosinophils % (Manual) 16 H (0-5) % Absolute Neutrophils 0.04 L (1.80-7.00) 10^3/uL Lymphocytes # (Manual) 0.65 L (1.00-4.80) 10^3/uL Monocytes # (Manual) 0.07 (0.00-0.80) 10^3/uL Eosinophils # (Manual) 0.14 (0.00-0.45) 10^3/uL Sodium 134 L (136-145) mEq/L Potassium 4.1 (3.5-5.0) mEq/L Chloride 103 (98-106) mEq/L Carbon Dioxide 23 (21-32) mmol/L BUN 18 (7-18) mg/dL Creatinine 0.6 (0.6-1.0) mg/dL Est Cr Clr Drug Dosing 74.70 mL/min Estimated GFR (MDRD) > 60 (>=60) mL/min Glucose 98 (75-99) mg/dL Calcium 8.0 L (8.4-10.1) mg/dL Total Bilirubin 0.2 (0.0-1.0) mg/dL AST 12 L (15-37) U/L ALT 19 (12-78) U/L Alkaline Phosphatase 55 (46-116) U/L C-Reactive Protein 3.2 H (0.2-0.8) mg/dL Total Protein 5.6 L (6.4-8.2) g/dL Albumin 2.5 L (3.4-5.0) g/dL Urine Color Yellow (YELLOW) Urine Appearance Clear (CLEAR) Urine pH 7.0 (4.5-8.0) Ur Specific Ramona 1.015 (1.003-1.020) Urine Protein 30 H (NEGATIVE) mg/dL Urine Glucose (UA) Negative (NEGATIVE) mg/dL Urine Ketones Negative (NEGATIVE) mg/dL Urine Occult Blood Negative (NEGATIVE) Urine Nitrite Positive H (NEGATIVE) Urine Bilirubin Negative (NEGATIVE) Urine Urobilinogen 0.2 (0.2-1.0) EU/dL Ur Leukocyte Esterase Negative (NEGATIVE) Urine RBC Not seen (0-5) /HPF Urine WBC 0-5 (0-5) /HPF Ur Squamous Epith Cells Few H (NOT SEEN) /HPF Urine Bacteria Moderate H (NOT SEEN) /HPF Urinalysis Comment 12/28/18 12/28/18 Range/Units 07:45 07:45 WBC 1.0 L* (5.0-10.0) 10^3/uL RBC 2.47 L (4.00-5.50) 10^6/uL Hgb 8.4 L (12.0-16.0) g/dL Hct 24.8 L (37.0-47.0) % MCV 100.4 H (82.0-94.0) fL MCH 34.0 H (27.0-32.0) pg MCHC 33.9 (33.0-38.0) g/dL RDW Coeff of Levon 13.9 (11.0-15.0) % Plt Count 79 L (150-400) 10^3/uL Neut % (Auto) Lymph % (Auto) [place] % (Auto) Eos % (Auto) Baso % (Auto) Neut # (Auto) Lymph # (Auto) [place] # (Auto) Eos # (Auto) Baso # (Auto) Add Manual Diff Yes Neutrophils % (Manual) 4 L (35-85) % Lymphocytes % (Manual) 56 H (21-55) % Monocytes % (Manual) 36 H (2-12) % Eosinophils % (Manual) 4 (0-5) % Absolute Neutrophils 0.04 L (1.80-7.00) 10^3/uL Lymphocytes # (Manual) 0.56 L (1.00-4.80) 10^3/uL Monocytes # (Manual) 0.36 (0.00-0.80) 10^3/uL Eosinophils # (Manual) 0.04 (0.00-0.45) 10^3/uL Sodium 136 (136-145) mEq/L Potassium 4.2 (3.5-5.0) mEq/L Chloride 107 H (98-106) mEq/L Carbon Dioxide 21 (21-32) mmol/L BUN 13 (7-18) mg/dL Creatinine 0.6 (0.6-1.0) mg/dL Est Cr Clr Drug Dosing 74.70 mL/min Estimated GFR (MDRD) > 60 (>=60) mL/min Glucose 93 (75-99) mg/dL Calcium 7.1 L (8.4-10.1) mg/dL Total Bilirubin (0.0-1.0) mg/dL AST (15-37) U/L ALT (12-78) U/L Alkaline Phosphatase (46-116) U/L C-Reactive Protein 5.4 H (0.2-0.8) mg/dL Total Protein (6.4-8.2) g/dL Albumin (3.4-5.0) g/dL Urine Color (YELLOW) Urine Appearance (CLEAR) Urine pH (4.5-8.0) Ur Specific Ramona (1.003-1.020) Urine Protein (NEGATIVE) mg/dL Urine Glucose (UA) (NEGATIVE) mg/dL Urine Ketones (NEGATIVE) mg/dL Urine Occult Blood (NEGATIVE) Urine Nitrite (NEGATIVE) Urine Bilirubin (NEGATIVE) Urine Urobilinogen (0.2-1.0) EU/dL Ur Leukocyte Esterase (NEGATIVE) Urine RBC (0-5) /HPF Urine WBC (0-5) /HPF Ur Squamous Epith Cells (NOT SEEN) /HPF Urine Bacteria (NOT SEEN) /HPF Urinalysis Comment Apolinar Results Last 24 Hours: Microbiology 12/27/18 13:47 Urine Culture - Preliminary Urine, Voided Gram Negative Rods Med Orders - Current: Current Medications Acetaminophen (Tylenol) 650 mg PO Q4H PRN PRN Reason: Pain (Mild 1-3)/fever Aspirin (Halfprin) 81 mg PO DAILY [facility] Last Admin: 12/28/18 07:43 Dose: 81 mg Ceftriaxone Sodium (Rocephin) 1 gm IVPUSH Q24H [facility] Clopidogrel Bisulfate (Plavix) 75 mg PO DAILY [facility] Last Admin: 12/28/18 07:43 Dose: 75 mg Enoxaparin Sodium (Lovenox) 40 mg SUBCUT Q24H [facility] Last Admin: 12/27/18 16:30 Dose: 40 mg Gabapentin (Neurontin) 300 mg PO TID [facility] Last Admin: 12/28/18 07:43 Dose: 300 mg Sodium Chloride (Normal Saline) 1,000 mls @ 100 mls/hr IV ASDIRECTED [facility] Last Admin: 12/28/18 09:04 Dose: 100 mls/hr Metoprolol Succinate (Toprol Xl) 25 mg PO DAILY [facility] Last Admin: 12/28/18 07:43 Dose: 25 mg Mometasone Furoate/Formoterol Fumar (Dulera 200-5 Mcg) 2 puff IH BID PRN PRN Reason: Shortness of Breath Non-Formulary Medication (Megestrol Acetate [Megestrol Acetate]) 20 ml PO DAILY [facility] Nystatin (Mycostatin) 5 ml PO QID [facility] Ondansetron HCl (Zofran Odt) 4 mg PO Q4H PRN PRN Reason: nausea, able to take PO Ondansetron HCl (Zofran) 4 mg IV Q4H PRN PRN Reason: Nausea/Vomiting Pantoprazole Sodium (Protonix Iv) 40 mg IVPUSH BID [facility] Last Admin: 12/28/18 07:43 Dose: 40 mg Polyethylene Glycol (Miralax) 17 gm PO DAILY PRN PRN Reason: Constipation Sertraline HCl (Zoloft) 25 mg PO BEDTIME [facility] Last Admin: 12/27/18 19:24 Dose: 25 mg Sodium Chloride (Saline Flush) 10 ml FLUSH ASDIRECTED PRN PRN Reason: Keep Vein Open Discontinued Medications Non-Formulary Medication (Acetaminophen [Tylenol]) 325 mg PO Q4H PRN PRN Reason: Pain - Exam General: Alert, Oriented HEENT: Other (mucous membranes dry, red) Neck: Supple Lungs: Clear to Auscultation, Normal Respiratory Effort Cardiovascular: Regular Rate, Regular Rhythm GI/Abdominal Exam: Normal Bowel Sounds, Soft, Tender (diffuse mild tenderness) Extremities: Normal Inspection, No Pedal Edema Skin: Warm, Dry Neurological: No New Focal Deficit - Problem List & Annotations (1) Diarrhea SNOMED Code(s): 88167294 Code(s): R19.7 - DIARRHEA, UNSPECIFIED Status: Acute Priority: High Current Visit: Yes Qualifiers: Diarrhea type: unspecified type Qualified Code(s): R19.7 - Diarrhea, unspecified (2) Palliative care status SNOMED Code(s): 254200922 Code(s): Z51.5 - ENCOUNTER FOR PALLIATIVE CARE Status: Acute Priority: High Current Visit: Yes (3) UTI (urinary tract infection) SNOMED Code(s): 53424049 Code(s): N39.0 - URINARY TRACT INFECTION, SITE NOT SPECIFIED Status: Acute Priority: High Current Visit: Yes Qualifiers: Urinary tract infection type: acute cystitis Hematuria presence: without hematuria Qualified Code(s): N30.00 - Acute cystitis without hematuria (4) Weakness SNOMED Code(s): 64530714 Code(s): R53.1 - WEAKNESS Status: Acute Priority: High Current Visit: Yes (5) Ovarian cancer SNOMED Code(s): 278900839 Code(s): C56.9 - MALIGNANT NEOPLASM OF UNSPECIFIED OVARY Status: Acute Priority: High Current Visit: Yes Qualifiers: Laterality: right - Problem List Review Problem List Initiated/Reviewed/Updated: Yes - My Orders Last 24 Hours: My Active Orders 12/28/18 11:30 cefTRIAXone [Rocephin] 1 gm IVPUSH Q24H 12/28/18 12:00 Nystatin [Mycostatin] 5 ml PO QID 12/29/18 05:11 BASIC METABOLIC PANEL,BMP [CHEM] DAILY C-REACTIVE PROTEIN [CHEM] DAILY CBC WITH AUTO DIFF [HEME] DAILY 12/30/18 05:11 BASIC METABOLIC PANEL,BMP [CHEM] DAILY C-REACTIVE PROTEIN [CHEM] DAILY CBC WITH AUTO DIFF [HEME] DAILY 12/31/18 05:11 BASIC METABOLIC PANEL,BMP [CHEM] DAILY C-REACTIVE PROTEIN [CHEM] DAILY CBC WITH AUTO DIFF [HEME] DAILY - Assessment Assessment:: Diarrhea- no stools since admission Weakness UTI Palliative Care Status History of metastatic ovarian cancer - Plan Plan:: Patient remains very weak yet this am. States very chilled. No fevers. Does have mild abdominal pain and back pain. She is eating fairly well. Has not had any loose stools since admission, not able to collect stool studies. UA positive for UTI, initial culture today gram negative bacteria. WBC still low at 1.0. Hemoglobin 8.4. CRP 5.4. Abdomen is soft, mildly tender with palpation. Will continue IV fluids. Start Rocephin IV. Nystatin for sore mouth. Await final urine culture. Repeat labs in am.
[2018-12-28] MEDS: Enoxaparin 40 MG/0.4 ML Syringe SUBCUT SCH (16:31)
[2018-12-28] MEDS: Sertraline 25 MG Tab PO SCH (20:09)
[2018-12-29] MEDS: Sodium Chloride 0.9% 1,000 ML IV SCH ×2 (05:01→16:38)
[2018-12-29 08:01] LABS: CHLORIDE,CL 107 mEq/L (98-106); SODIUM,NA 137 mEq/L (136-145)
[2018-12-29] MEDS: Nystatin Susp 100,000 Unit/ML 5 ML UD Cup PO SCH ×4 (08:06→19:35)
[2018-12-29] MEDS: Aspirin 81 MG Tab.EC PO SCH (08:06)
[2018-12-29] MEDS: Clopidogrel 75 MG Tab PO SCH (08:06)
[2018-12-29] MEDS: Pantoprazole 40 MG Vial IVPUSH SCH ×2 (08:07→19:35)
[2018-12-29] MEDS: Metoprolol Succinate 25 MG Tab.ER PO SCH (08:07)
[2018-12-29] MEDS: Gabapentin 300 MG Cap PO SCH ×3 (08:07→19:35)
[2018-12-29] MEDS: MEGESTROL ACETATE 40 MG/ML PO SCH (09:58)
[2018-12-29] MEDS ORDERED: Meropenem 1 GM SDV IVPUSH SCH (10:00)
[2018-12-29] MEDS ORDERED: Levofloxacin/Dextrose 5%-Water 500 MG in Premix Bag 1 BAG IV SCH (10:00)
[2018-12-29] MEDS ORDERED: Calcium Gluconate 2 GM in Sodium Chloride 0.9% 100 ML IV ONE (10:33)
--- NOTE | 2018-12-29 10:42 | PCM.PN ---
- General Info Date of Service: 12/29/18 Admission Dx/Problem (Free Text): Weakness Diarrhea Functional Status: Reports: Pain Controlled, Tolerating Diet, Urinating. Denies : Ambulating - Review of Systems General: Reports: Fever, Weakness, Fatigue, Malaise HEENT: Reports: Rhinitis, Other (sore mouth) Pulmonary: Denies: Shortness of Breath, Cough Cardiovascular: Denies: Chest Pain, Edema, Lightheadedness Gastrointestinal: Reports: Abdominal Pain. Denies: Nausea, Vomiting Genitourinary: Reports: Frequency Musculoskeletal: Reports: No Symptoms Skin: Reports: No Symptoms Neurological: Reports: Weakness - Patient Data Vitals - Most Recent: Last Vital Signs Temp 99.3 F 12/29/18 08:00 Pulse 75 12/29/18 08:07 Resp 20 12/29/18 08:00 BP 111/56 L 12/29/18 08:07 Pulse Ox 97 12/29/18 08:00 Weight - Most Recent: 146 lb 12.8 oz I&O - Last 24 Hours: Intake & Output 12/28/18 12/29/18 12/29/18 22:59 06:59 14:59 Intake Total 2193 1100 Output Total 950 1050 Balance 1243 50 Lab Results Last 24 Hours: Laboratory Results - last 24 hr 12/29/18 12/29/18 Range/Units 05:11 05:11 WBC 1.1 L* (5.0-10.0) 10^3/uL RBC 2.34 L (4.00-5.50) 10^6/uL Hgb 7.9 L* (12.0-16.0) g/dL Hct 23.4 L (37.0-47.0) % MCV 100.0 H (82.0-94.0) fL MCH 33.8 H (27.0-32.0) pg MCHC 33.8 (33.0-38.0) g/dL RDW Coeff of Levon 13.5 (11.0-15.0) % Plt Count 65 L (150-400) 10^3/uL Neut % (Auto) 6.6 L (35-85) % Lymph % (Auto) 53.8 (10-55) % Forrest % (Auto) 27.4 H (0-16) % Eos % (Auto) 11.3 H (0-5) % Baso % (Auto) 0.9 (0-3) % Neut # (Auto) 0.07 L (1.80-7.00) 10^3/uL Lymph # (Auto) 0.57 L (1.00-4.80) 10^3/uL [place] # (Auto) 0.29 (0.00-0.80) 10^3/uL Eos # (Auto) 0.12 (0.00-0.45) 10^3/uL Baso # (Auto) 0.01 10^3/uL Sodium 137 (136-145) mEq/L Potassium 3.6 (3.5-5.0) mEq/L Chloride 107 H (98-106) mEq/L Carbon Dioxide 21 (21-32) mmol/L BUN 9 (7-18) mg/dL Creatinine 0.7 (0.6-1.0) mg/dL Est Cr Clr Drug Dosing 66.82 mL/min Estimated GFR (MDRD) > 60 (>=60) mL/min Glucose 94 (75-99) mg/dL Calcium 6.6 L* (8.4-10.1) mg/dL C-Reactive Protein 17.6 H (0.2-0.8) mg/dL Apolinar Results Last 24 Hours: Microbiology 12/27/18 13:47 Urine Culture - Final Urine, Voided Citrobacter Braakii Med Orders - Current: Current Medications Acetaminophen (Tylenol) 650 mg PO Q4H PRN PRN Reason: Pain (Mild 1-3)/fever Last Admin: 12/28/18 16:35 Dose: 650 mg Aspirin (Halfprin) 81 mg PO DAILY [facility] Last Admin: 12/29/18 08:06 Dose: 81 mg Calcium Carbonate/Glycine (Tums) 500 mg PO TID [facility] Clopidogrel Bisulfate (Plavix) 75 mg PO DAILY [facility] Last Admin: 12/29/18 08:06 Dose: 75 mg Enoxaparin Sodium (Lovenox) 40 mg SUBCUT Q24H [facility] Last Admin: 12/28/18 16:31 Dose: 40 mg Gabapentin (Neurontin) 300 mg PO TID [facility] Last Admin: 12/29/18 08:07 Dose: 300 mg Sodium Chloride (Normal Saline) 1,000 mls @ 100 mls/hr IV ASDIRECTED [facility] Last Admin: 12/29/18 05:01 Dose: 100 mls/hr Piperacillin Sod/Tazobactam (Sod 3.375 gm/ Sodium Chloride) 50 mls @ 100 mls/ hr IV Q6H [facility] Calcium Gluconate 2 gm/ Sodium (Chloride) 120 mls @ 100 mls/hr IV ONETIME ONE Stop: 12/29/18 11:44 Metoprolol Succinate (Toprol Xl) 25 mg PO DAILY [facility] Last Admin: 12/29/18 08:07 Dose: 25 mg Mometasone Furoate/Formoterol Fumar (Dulera 200-5 Mcg) 2 puff IH BID PRN PRN Reason: Shortness of Breath Megestrol Acetate (40mg/MlOwn Med) 20 ml PO DAILY [facility] Last Admin: 12/29/18 09:58 Dose: 20 ml Nystatin (Mycostatin) 5 ml PO QID [facility] Last Admin: 12/29/18 08:06 Dose: 5 ml Ondansetron HCl (Zofran Odt) 4 mg PO Q4H PRN PRN Reason: nausea, able to take PO Ondansetron HCl (Zofran) 4 mg IV Q4H PRN PRN Reason: Nausea/Vomiting Pantoprazole Sodium (Protonix Iv) 40 mg IVPUSH BID [facility] Last Admin: 12/29/18 08:07 Dose: 40 mg Polyethylene Glycol (Miralax) 17 gm PO DAILY PRN PRN Reason: Constipation Sertraline HCl (Zoloft) 25 mg PO BEDTIME [facility] Last Admin: 12/28/18 20:09 Dose: 25 mg Sodium Chloride (Saline Flush) 10 ml FLUSH ASDIRECTED PRN PRN Reason: Keep Vein Open Discontinued Medications Ceftriaxone Sodium (Rocephin) 1 gm IVPUSH Q24H [facility] Last Admin: 12/28/18 12:41 Dose: 1 gm Levofloxacin/Dextrose 500 mg/ (Premix) 100 mls @ 100 mls/hr IV Q24H [facility] Meropenem (Merrem) 1 gm IVPUSH Q8H [facility] Non-Formulary Medication (Acetaminophen [Tylenol]) 325 mg PO Q4H PRN PRN Reason: Pain - Exam General: Alert, Oriented HEENT: Mucous Membr. Moist/[place] Neck: Supple Lungs: Clear to Auscultation, Normal Respiratory Effort Cardiovascular: Regular Rate, Regular Rhythm GI/Abdominal Exam: Normal Bowel Sounds, Soft, Tender (lower quads) Extremities: Normal Inspection, No Pedal Edema Skin: Warm, Dry Neurological: No New Focal Deficit - Problem List & Annotations (1) Diarrhea SNOMED Code(s): 96825700 Code(s): R19.7 - DIARRHEA, UNSPECIFIED Status: Acute Priority: High Current Visit: Yes Qualifiers: Diarrhea type: unspecified type Qualified Code(s): R19.7 - Diarrhea, unspecified (2) Palliative care status SNOMED Code(s): 695797530 Code(s): Z51.5 - ENCOUNTER FOR PALLIATIVE CARE Status: Acute Priority: High Current Visit: Yes (3) UTI (urinary tract infection) SNOMED Code(s): 38655896 Code(s): N39.0 - URINARY TRACT INFECTION, SITE NOT SPECIFIED Status: Acute Priority: High Current Visit: Yes Qualifiers: Urinary tract infection type: acute cystitis Hematuria presence: without hematuria Qualified Code(s): N30.00 - Acute cystitis without hematuria (4) Weakness SNOMED Code(s): 91100775 Code(s): R53.1 - WEAKNESS Status: Acute Priority: High Current Visit: Yes (5) Ovarian cancer SNOMED Code(s): 075478739 Code(s): C56.9 - MALIGNANT NEOPLASM OF UNSPECIFIED OVARY Status: Acute Priority: High Current Visit: Yes Qualifiers: Laterality: right Qualified Code(s): C56.1 - Malignant neoplasm of right ovary; C56.0 - Malignant neoplasm of right ovary - Problem List Review Problem List Initiated/Reviewed/Updated: Yes - My Orders Last 24 Hours: My Active Orders 12/28/18 12:00 Nystatin [Mycostatin] 5 ml PO QID 12/29/18 07:00 CULTURE BLOOD [BC] ONETIME CULTURE BLOOD [BC] ONETIME Blood Culture x2 Reflex Set [OM.PC] ONETIME 12/29/18 09:52 Calcium Carbonate [Tums] 500 mg PO TID 12/29/18 10:00 Piperacillin/Tazobactam [Zosyn] 3.375 gm Sodium Chloride 0.9% [Normal Saline] 50 ml IV Q6H 12/29/18 10:33 Calcium Gluconate 2 gm Sodium Chloride 0.9% [Normal Saline] 100 ml IV ONETIME 12/30/18 05:11 BASIC METABOLIC PANEL,BMP [CHEM] DAILY C-REACTIVE PROTEIN [CHEM] DAILY CBC WITH AUTO DIFF [HEME] DAILY 12/31/18 05:11 BASIC METABOLIC PANEL,BMP [CHEM] DAILY C-REACTIVE PROTEIN [CHEM] DAILY CBC WITH AUTO DIFF [HEME] DAILY - Assessment Assessment:: Diarrhea- no stools since admission Weakness UTI Palliative Care Status History of metastatic ovarian cancer - Plan Plan:: Patient remains very weak yet this am. States very chilled. No fevers. Does have mild abdominal pain and back pain. She is eating fairly well. Has not had any loose stools since admission, not able to collect stool studies. UA positive for UTI, initial culture today gram negative bacteria. WBC still low at 1.0. Hemoglobin 8.4. CRP 5.4. Abdomen is soft, mildly tender with palpation. Will continue IV fluids. Start Rocephin IV. Nystatin for sore mouth. Await final urine culture. Repeat labs in am. 12-29-2018 Patient still weak but feels better than yesterday. Did spike a fever of 102 last evening. No increase in abdominal pain, nausea or shortness of breath. Does have frequency with urination but denies changes. No burning. Has not yet had any loose stools. Urine culture shows positive for Citrobacter Braakii , resistant to Rocephin. WBC 1.1 today. CRP up to 17. Hemoglobin 7.9. Calcium 6.6. Will switch to Zosyn. Start TUMS. Contacted [facility] in [place] and spoke with Dr. Taylor. Advised to give PRBCs if hemoglobin drops below 7.0 or becomes more symptomatic. Neulasta if WBC does not continue to rise. Calcium gluconate 2 gm IV now. Repeat labs in am.
[2018-12-29] MEDS: Piperacillin/Tazobactam 3.375 GM in Sodium Chloride 0.9% 50 ML IV SCH ×3 (11:38→22:09)
[2018-12-29] MEDS: Calcium Carbonate 500 MG Tab.Chew PO SCH ×3 (11:38→19:35)
[2018-12-29] MEDS: Enoxaparin 40 MG/0.4 ML Syringe SUBCUT SCH (16:44)
[2018-12-29] MEDS: Sertraline 25 MG Tab PO SCH (19:35)
[2018-12-30] MEDS: Sodium Chloride 0.9% 1,000 ML IV SCH (02:53)
[2018-12-30] MEDS: Piperacillin/Tazobactam 3.375 GM in Sodium Chloride 0.9% 50 ML IV SCH (04:07)
[2018-12-30] MEDS: Clopidogrel 75 MG Tab PO SCH (07:36)
[2018-12-30] MEDS: Calcium Carbonate 500 MG Tab.Chew PO SCH (07:36)
[2018-12-30] MEDS: Gabapentin 300 MG Cap PO SCH (07:36)
[2018-12-30] MEDS: Nystatin Susp 100,000 Unit/ML 5 ML UD Cup PO SCH (07:37)
[2018-12-30] MEDS: Metoprolol Succinate 25 MG Tab.ER PO SCH (07:37)
[2018-12-30] MEDS: MEGESTROL ACETATE 40 MG/ML PO SCH (07:37)
[2018-12-30] MEDS: Aspirin 81 MG Tab.EC PO SCH (07:37)
[2018-12-30] MEDS: Pantoprazole 40 MG Vial IVPUSH SCH (07:38)
[2018-12-30 07:40] VITALS: BP 136/66
[2018-12-30 07:59] LABS: CHLORIDE,CL 108 mEq/L (98-106); SODIUM,NA 138 mEq/L (136-145)
[2018-12-30] MEDS ORDERED: Vancomycin 125 MG/2.5 ML Oral Solution 2.5 ML UD Cup PO SCH (09:00)
--- NOTE | 2018-12-30 09:17 | PCM.DCSUM1 ---
Discharge Summary - Hospital Course Free Text/Narrative:: Patient admitted to clinic for complaints of weakness and diarrhea. Had another round of chemotherapy and states "always wears me out". [place] she was doing well prior to having chemo. Has history of metastatic ovarian cancer. Not eating or drinking well as her mouth gets very sore from the chemo. Dehydrated on admission. Had felt lightheaded and short of breath with activity. Labs did show a WBC of 0.9. Hemoglobin 9.1. Sodium 134, CRP 3.2. Admitted for IV fluids and stool studies. Diagnosis: Stroke: No Modified Wolfe Scale: No Symptoms at All Modified Francisco Scale Score: 0 - Discharge Data Discharge Date: 12/30/18 Discharge Disposition: DC/Tfer W/I Hosp To Swing 61 Condition: Fair - Discharge Diagnosis/Problem(s) (1) Diarrhea SNOMED Code(s): 16034451 ICD Code: R19.7 - DIARRHEA, UNSPECIFIED Status: Acute Priority: High Qualifiers: Diarrhea type: unspecified type Qualified Code(s): R19.7 - Diarrhea, unspecified (2) Palliative care status SNOMED Code(s): 308729017 ICD Code: Z51.5 - ENCOUNTER FOR PALLIATIVE CARE Status: Acute Priority: High (3) UTI (urinary tract infection) SNOMED Code(s): 21455352 ICD Code: N39.0 - URINARY TRACT INFECTION, SITE NOT SPECIFIED Status: Acute Priority: High Qualifiers: Urinary tract infection type: acute cystitis Hematuria presence: without hematuria Qualified Code(s): N30.00 - Acute cystitis without hematuria (4) Weakness SNOMED Code(s): 59486969 ICD Code: R53.1 - WEAKNESS Status: Acute Priority: High (5) Ovarian cancer SNOMED Code(s): 782549431 ICD Code: C56.9 - MALIGNANT NEOPLASM OF UNSPECIFIED OVARY Status: Acute Priority: High Qualifiers: Laterality: right Qualified Code(s): C56.1 - Malignant neoplasm of right ovary; C56.0 - Malignant neoplasm of right ovary - Patient Summary/Data Complications: none Hospital Course: Patient is slowly gaining strength, is feeling better. Was admitted for weakness and diarrhea. Did not have any loose stools until this am, was collected and noted positive for c diff. Patient's urine was positive, culture showed citerobacter, sensitive to Zosyn so was switched from Rocephin. Started on oral Vancomycin today. WBC was 0.9 on admit, is status post chemo 10 days ago. Has increased to 2.0 today. Hemoglobin has remained fairly stable , did drop to 7.9, now increasing. Patient's calcium is still low. Was 8 on admit but dropped to 6.6 so calcium gluconate IV was given and patient was started on TUMS. She is eating and drinking better. Had a sore mouth, which is improving since being placed on Nystatin swish and swallow. Did contact oncology at [facility] for any further recommendations. Advised to given blood if drops below 7.0 or becomes more symptomatic. Neulasta if WBC doesn't rebound. Did order a CA 125 today per patient request due to questioning if should continue or stop any further chemo. Transfer to swing bed. Continue Zosyn and Vancomycin. Calcium gluconate IV today. PT for strengthening. - Patient Instructions Diet: Usual Diet as Tolerated Activity: As Tolerated - Discharge Plan *PRESCRIPTION DRUG MONITORING PROGRAM REVIEWED*: No *COPY OF PRESCRIPTION DRUG MONITORING REPORT IN PATIENT KATHY: No Home Medications: Home Meds Aspirin [Halfprin] 81 mg PO DAILY 01/07/16 [History] Nitroglycerin [Nitrolingual] 0.4 gm SL ASDIRECTED PRN 01/07/16 [History] Ubidecarenone [COQ-10] 30 mg PO DAILY 01/07/16 [History] atorvaSTATin Calcium [Atorvastatin Calcium] 40 mg PO BEDTIME 01/07/16 [History] Acetaminophen [Tylenol] 325 mg PO Q4H PRN 07/23/18 [History] Budesonide/Formoterol Fumarate [Symbicort 80-4.5 Mcg Inhaler] 2 inh INH BID PRN 07/23/18 [History] Ondansetron [Zofran] 4 - 8 mg PO Q4H PRN 07/23/18 [History] Polyethylene Glycol 3350 [MiraLAX] 17 gm PO DAILY PRN 07/23/18 [History] Gabapentin [Neurontin] 300 mg PO TID 10/01/18 [History] Simethicone 80 mg PO Q4H PRN #30 tab.chew 11/02/18 [Rx] Clopidogrel Bisulfate [Clopidogrel] 75 mg PO DAILY 11/07/18 [History] Sertraline [Zoloft] 25 mg PO BEDTIME #30 tablet 11/22/18 [Rx] Megestrol Acetate 20 ml PO DAILY 12/27/18 [History] Metoprolol Succinate 25 mg PO DAILY 12/27/18 [History] - Discharge Summary/Plan Comment DC Time >30 min.: No - General Info Date of Service: 12/30/18 Admission Dx/Problem (Free Text: Weakness Diarrhea Functional Status: Reports: Pain Controlled, Tolerating Diet, Ambulating - Review of Systems General: Reports: Weakness, Fatigue, Malaise HEENT: Reports: Other (sore mouth) Pulmonary: Denies: Shortness of Breath, Cough Cardiovascular: Denies: Chest Pain, Edema, Lightheadedness Gastrointestinal: Reports: Abdominal Pain, Decreased Appetite. Denies: Nausea, Vomiting Genitourinary: Reports: Frequency Musculoskeletal: Reports: No Symptoms Skin: Reports: No Symptoms Neurological: Reports: Weakness - Patient Data Vitals - Most Recent: Last Vital Signs Temp 96.8 F 12/30/18 08:00 Pulse 79 12/30/18 08:00 Resp 16 12/30/18 08:00 BP 136/66 12/30/18 08:00 Pulse Ox 97 12/30/18 08:00 Weight - Most Recent: 148 lb I&O - Last 24 hours: Intake & Output 12/29/18 12/30/18 12/30/18 22:59 06:59 14:59 Intake Total 2600 1000 Output Total 2475 1250 Balance 125 -250 Lab Results - Last 24 hrs: Laboratory Results - last 24 hr 12/30/18 12/30/18 Range/Units 07:00 07:00 WBC 2.0 L (5.0-10.0) 10^3/uL RBC 2.50 L (4.00-5.50) 10^6/uL Hgb 8.4 L (12.0-16.0) g/dL Hct 25.0 L (37.0-47.0) % MCV 100.0 H (82.0-94.0) fL MCH 33.6 H (27.0-32.0) pg MCHC 33.6 (33.0-38.0) g/dL RDW Coeff of Levon 13.7 (11.0-15.0) % Plt Count 80 L (150-400) 10^3/uL Neut % (Auto) 49.2 (35-85) % Lymph % (Auto) 32.7 (10-55) % [place] % (Auto) 13.1 (0-16) % Eos % (Auto) 5.0 (0-5) % Baso % (Auto) 0 (0-3) % Neut # (Auto) 0.98 L (1.80-7.00) 10^3/uL Lymph # (Auto) 0.65 L (1.00-4.80) 10^3/uL [place] # (Auto) 0.26 (0.00-0.80) 10^3/uL Eos # (Auto) 0.10 (0.00-0.45) 10^3/uL Baso # (Auto) 0.00 10^3/uL Sodium 138 (136-145) mEq/L Potassium 4.0 (3.5-5.0) mEq/L Chloride 108 H (98-106) mEq/L Carbon Dioxide 20 L (21-32) mmol/L BUN 8 (7-18) mg/dL Creatinine 0.7 (0.6-1.0) mg/dL Est Cr Clr Drug Dosing 66.82 mL/min Estimated GFR (MDRD) > 60 (>=60) mL/min Glucose 104 H (75-99) mg/dL Calcium 6.8 L* (8.4-10.1) mg/dL C-Reactive Protein 8.5 H (0.2-0.8) mg/dL SCOTT Results - Last 24 hrs: Microbiology 12/30/18 08:00 C. difficile DNA Amplification - Final Stool / Feces Positive C. Diff Dna 12/29/18 07:00 Aerobic Blood Culture - Preliminary Blood - Venous - Lab Draw NO GROWTH AFTER 1 DAY Anaerobic Blood Culture - Preliminary NO GROWTH AFTER 1 DAY 12/29/18 07:00 Aerobic Blood Culture - Preliminary Blood - Venous NO GROWTH AFTER 1 DAY Anaerobic Blood Culture - Preliminary NO GROWTH AFTER 1 DAY 12/27/18 13:47 Urine Culture - Final Urine, Voided Citrobacter Braakii Med Orders - Current: Current Medications Acetaminophen (Tylenol) 650 mg PO Q4H PRN PRN Reason: Pain (Mild 1-3)/fever Last Admin: 12/28/18 16:35 Dose: 650 mg Aspirin (Halfprin) 81 mg PO DAILY GRISEL Last Admin: 12/30/18 07:37 Dose: 81 mg Calcium Carbonate/Glycine (Tums) 500 mg PO TID [facility] Last Admin: 12/30/18 07:36 Dose: 500 mg Clopidogrel Bisulfate (Plavix) 75 mg PO DAILY [facility] Last Admin: 12/30/18 07:36 Dose: 75 mg Enoxaparin Sodium (Lovenox) 40 mg SUBCUT Q24H [facility] Last Admin: 12/29/18 16:44 Dose: 40 mg Gabapentin (Neurontin) 300 mg PO TID [facility] Last Admin: 12/30/18 07:36 Dose: 300 mg Sodium Chloride (Normal Saline) 1,000 mls @ 100 mls/hr IV ASDIRECTED [facility] Last Admin: 12/30/18 02:53 Dose: 100 mls/hr Piperacillin Sod/Tazobactam (Sod 3.375 gm/ Sodium Chloride) 50 mls @ 100 mls/ hr IV Q6H [facility] Last Admin: 12/30/18 04:07 Dose: 100 mls/hr Metoprolol Succinate (Toprol Xl) 25 mg PO DAILY [facility] Last Admin: 12/30/18 07:37 Dose: 25 mg Mometasone Furoate/Formoterol Fumar (Dulera 200-5 Mcg) 2 puff IH BID PRN PRN Reason: Shortness of Breath Megestrol Acetate (40mg/MlOwn Med) 20 ml PO DAILY [facility] Last Admin: 12/30/18 07:37 Dose: 20 ml Nystatin (Mycostatin) 5 ml PO QID [facility] Last Admin: 12/30/18 07:37 Dose: 5 ml Ondansetron HCl (Zofran Odt) 4 mg PO Q4H PRN PRN Reason: nausea, able to take PO Ondansetron HCl (Zofran) 4 mg IV Q4H PRN PRN Reason: Nausea/Vomiting Pantoprazole Sodium (Protonix Iv) 40 mg IVPUSH BID [facility] Last Admin: 12/30/18 07:38 Dose: 40 mg Polyethylene Glycol (Miralax) 17 gm PO DAILY PRN PRN Reason: Constipation Sertraline HCl (Zoloft) 25 mg PO BEDTIME [facility] Last Admin: 12/29/18 19:35 Dose: 25 mg Sodium Chloride (Saline Flush) 10 ml FLUSH ASDIRECTED PRN PRN Reason: Keep Vein Open Vancomycin HCl (Vancocin 125 Mg/2.5 Ml Soln) 125 mg PO QID [facility] Last Admin: 12/30/18 09:07 Dose: 125 mg Discontinued Medications Ceftriaxone Sodium (Rocephin) 1 gm IVPUSH Q24H [facility] Last Admin: 12/28/18 12:41 Dose: 1 gm Levofloxacin/Dextrose 500 mg/ (Premix) 100 mls @ 100 mls/hr IV Q24H [facility] Calcium Gluconate 2 gm/ Sodium (Chloride) 120 mls @ 100 mls/hr IV ONETIME ONE Stop: 12/29/18 11:44 Last Admin: 12/29/18 11:30 Dose: 100 mls/hr Meropenem (Merrem) 1 gm IVPUSH Q8H [facility] Non-Formulary Medication (Acetaminophen [Tylenol]) 325 mg PO Q4H PRN PRN Reason: Pain - Exam General: Reports: Alert, Oriented HEENT: Reports: Mucous Membr. Moist/[place] Neck: Reports: Supple Lungs: Reports: Clear to Auscultation, Normal Respiratory Effort Cardiovascular: Reports: Regular Rate, Regular Rhythm GI/Abdominal Exam: Normal Bowel Sounds, Soft, Tender (lower quadrants) Extremities: Normal Inspection, No Pedal Edema Skin: Reports: Warm, Dry Neurological: Reports: No New Focal Deficit
[2018-12-30] MEDS ORDERED: Piperacillin/Tazobactam 3.375 GM in Sodium Chloride 0.9% 50 ML IV SCH (10:00)
== END 2018-12-30 09:20 | disposition swing bed (61) | DRG 372 ==
LOC: UNDOADMIN 11:12 → CC.MS 11:12 → UNDOADMIN 12:31 → UNDODISIN 12-30 09:20
PROVIDERS: ADMIT Physician Assistant Medical; ATTEND Family Medicine
DX: A04.72 Enterocolitis due to Clostridium difficile, not specified as recurrent (principal); N30.00 Acute cystitis without hematuria; Z51.5 Encounter for palliative care; B96.89 Other specified bacterial agents as the cause of diseases classified elsewhere; Z85.3 Personal history of malignant neoplasm of breast; Z85.43 Personal history of malignant neoplasm of ovary; Z92.21 Personal history of antineoplastic chemotherapy; Z90.710 Acquired absence of both cervix and uterus
CPT/HCPCS: 36415; 71046; 80048; 80053; 81001; 85025; 86140; 86304; 87040; 87045; 87046; 87086; 87088; 87186; 87493; A9270-GY; C9113; J0610; J0696; J1650; J2543; J7030; J7050

== ENCOUNTER 2018-12-30 08:39 | Inpatient (IN) | payer MEDICARE, OTHER ==
[2018-12-30] MEDS ORDERED: Ondansetron 4 MG/2 ML SDV IV PRN (11:22)
[2018-12-30] MEDS ORDERED: Formoterol/Mometasone 200-5 MCG 8.8 GM Inhaler IH PRN (11:22)
[2018-12-30] MEDS ORDERED: Sodium Chloride 0.9% 10 ML Syringe FLUSH PRN ×2 (11:22)
[2018-12-30] MEDS ORDERED: Ondansetron 4 MG Tab.DIS PO PRN (11:22)
[2018-12-30] MEDS ORDERED: Acetaminophen 325 MG Tab PO PRN (11:22)
[2018-12-30] MEDS ORDERED: Polyethylene Glycol 3350 Powder 17 GM Packet PO PRN (11:22)
[2018-12-30] MEDS: Nystatin Susp 100,000 Unit/ML 5 ML UD Cup PO SCH ×3 (12:40→20:08)
[2018-12-30] MEDS: Vancomycin 125 MG/2.5 ML Oral Solution 2.5 ML UD Cup PO SCH ×3 (12:40→20:05)
[2018-12-30] MEDS: Piperacillin/Tazobactam 3.375 GM in Sodium Chloride 0.9% 50 ML IV SCH ×3 (12:41→23:37)
[2018-12-30] MEDS: Gabapentin 300 MG Cap PO SCH ×2 (16:16→20:03)
[2018-12-30] MEDS: Enoxaparin 40 MG/0.4 ML Syringe SUBCUT SCH (16:17)
[2018-12-30] MEDS: Calcium Carbonate 500 MG Tab.Chew PO SCH ×2 (16:17→20:02)
[2018-12-30] MEDS: Sertraline 25 MG Tab PO SCH (20:03)
[2018-12-30] MEDS: Pantoprazole 40 MG Vial IVPUSH SCH (20:04)
[2018-12-31] MEDS: Piperacillin/Tazobactam 3.375 GM in Sodium Chloride 0.9% 50 ML IV SCH ×3 (05:42→17:16)
[2018-12-31 07:39] LABS: CHLORIDE,CL 108 mEq/L (98-106); SODIUM,NA 139 mEq/L (136-145)
[2018-12-31] MEDS: Pantoprazole 40 MG Vial IVPUSH SCH ×2 (09:21→20:02)
[2018-12-31] MEDS: Calcium Carbonate 500 MG Tab.Chew PO SCH ×3 (09:40→20:02)
[2018-12-31] MEDS: Gabapentin 300 MG Cap PO SCH ×3 (10:50→20:02)
[2018-12-31] MEDS: Nystatin Susp 100,000 Unit/ML 5 ML UD Cup PO SCH ×4 (10:50→20:02)
[2018-12-31] MEDS: Vancomycin 125 MG/2.5 ML Oral Solution 2.5 ML UD Cup PO SCH ×4 (10:50→20:02)
[2018-12-31] MEDS: Aspirin 81 MG Tab.EC PO SCH (12:18)
[2018-12-31] MEDS: Clopidogrel 75 MG Tab PO SCH (12:18)
[2018-12-31] MEDS: Metoprolol Succinate 25 MG Tab.ER PO SCH (12:24)
[2018-12-31] MEDS: MEGESTROL ACETATE PO SCH (12:25)
[2018-12-31] MEDS: Enoxaparin 40 MG/0.4 ML Syringe SUBCUT SCH (17:10)
[2018-12-31] MEDS ORDERED: Oxyquinoline/Emollient 0.3% Oint 1 OZ Canister TOP PRN (17:35)
[2018-12-31] MEDS: Loperamide 2 MG Cap PO PRN (17:54)
[2018-12-31] MEDS: Sertraline 25 MG Tab PO SCH (20:02)
[2019-01-01] MEDS: Piperacillin/Tazobactam 3.375 GM in Sodium Chloride 0.9% 50 ML IV SCH ×4 (00:30→18:34)
[2019-01-01] MEDS: Vancomycin 125 MG/2.5 ML Oral Solution 2.5 ML UD Cup PO SCH ×4 (08:52→20:55)
[2019-01-01] MEDS: Metoprolol Succinate 25 MG Tab.ER PO SCH (08:52)
[2019-01-01] MEDS: Aspirin 81 MG Tab.EC PO SCH (08:52)
[2019-01-01] MEDS: Calcium Carbonate 500 MG Tab.Chew PO SCH ×3 (08:52→20:55)
[2019-01-01] MEDS: Gabapentin 300 MG Cap PO SCH ×3 (08:52→20:55)
[2019-01-01] MEDS: Pantoprazole 40 MG Vial IVPUSH SCH ×2 (08:52→20:59)
[2019-01-01] MEDS: Clopidogrel 75 MG Tab PO SCH (08:52)
[2019-01-01] MEDS: Nystatin Susp 100,000 Unit/ML 5 ML UD Cup PO SCH ×4 (08:52→20:55)
[2019-01-01] MEDS: MEGESTROL ACETATE PO SCH (08:59)
[2019-01-01] MEDS: Enoxaparin 40 MG/0.4 ML Syringe SUBCUT SCH (16:01)
[2019-01-01] MEDS: Sertraline 25 MG Tab PO SCH (20:55)
[2019-01-01] MEDS: Loperamide 2 MG Cap PO PRN (20:57)
[2019-01-02] MEDS: Piperacillin/Tazobactam 3.375 GM in Sodium Chloride 0.9% 50 ML IV SCH ×4 (00:11→17:35)
[2019-01-02] MEDS: Aspirin 81 MG Tab.EC PO SCH (07:37)
[2019-01-02] MEDS: Calcium Carbonate 500 MG Tab.Chew PO SCH ×3 (07:37→19:48)
[2019-01-02] MEDS: Gabapentin 300 MG Cap PO SCH ×3 (07:37→19:49)
[2019-01-02] MEDS: Clopidogrel 75 MG Tab PO SCH (07:37)
[2019-01-02] MEDS: Pantoprazole 40 MG Vial IVPUSH SCH ×2 (07:37→19:47)
[2019-01-02] MEDS: Metoprolol Succinate 25 MG Tab.ER PO SCH (07:37)
[2019-01-02] MEDS: Vancomycin 125 MG/2.5 ML Oral Solution 2.5 ML UD Cup PO SCH ×4 (07:37→19:48)
[2019-01-02] MEDS: Nystatin Susp 100,000 Unit/ML 5 ML UD Cup PO SCH ×4 (07:38→19:48)
[2019-01-02] MEDS: MEGESTROL ACETATE PO SCH (07:38)
[2019-01-02 07:59] LABS: CHLORIDE,CL 105 mEq/L (98-106); SODIUM,NA 139 mEq/L (136-145)
[2019-01-02] MEDS: Enoxaparin 40 MG/0.4 ML Syringe SUBCUT SCH (17:06)
[2019-01-02] MEDS: Sertraline 25 MG Tab PO SCH (19:49)
[2019-01-03] MEDS: Piperacillin/Tazobactam 3.375 GM in Sodium Chloride 0.9% 50 ML IV SCH ×5 (00:35→23:35)
[2019-01-03] MEDS: Nystatin Susp 100,000 Unit/ML 5 ML UD Cup PO SCH ×4 (08:05→19:47)
[2019-01-03] MEDS: Vancomycin 125 MG/2.5 ML Oral Solution 2.5 ML UD Cup PO SCH ×4 (08:05→19:47)
[2019-01-03] MEDS: Aspirin 81 MG Tab.EC PO SCH (08:06)
[2019-01-03] MEDS: Gabapentin 300 MG Cap PO SCH ×3 (08:06→19:47)
[2019-01-03] MEDS: Metoprolol Succinate 25 MG Tab.ER PO SCH (08:06)
[2019-01-03] MEDS: Clopidogrel 75 MG Tab PO SCH (08:06)
[2019-01-03] MEDS: Calcium Carbonate 500 MG Tab.Chew PO SCH ×3 (08:06→19:47)
[2019-01-03] MEDS: MEGESTROL ACETATE PO SCH (08:07)
[2019-01-03] MEDS: Pantoprazole 40 MG Vial IVPUSH SCH (08:08)
[2019-01-03] MEDS: Enoxaparin 40 MG/0.4 ML Syringe SUBCUT SCH (16:51)
[2019-01-03] MEDS: Pantoprazole 40 MG Tab.CR PO SCH (19:47)
[2019-01-03] MEDS: Sertraline 25 MG Tab PO SCH (19:47)
[2019-01-04] MEDS: Piperacillin/Tazobactam 3.375 GM in Sodium Chloride 0.9% 50 ML IV SCH ×3 (05:16→18:04)
[2019-01-04] MEDS: Gabapentin 300 MG Cap PO SCH ×3 (07:45→19:53)
[2019-01-04] MEDS: Calcium Carbonate 500 MG Tab.Chew PO SCH ×3 (07:45→19:53)
[2019-01-04] MEDS: Pantoprazole 40 MG Tab.CR PO SCH ×2 (07:46→19:53)
[2019-01-04] MEDS: Aspirin 81 MG Tab.EC PO SCH (07:46)
[2019-01-04] MEDS: Clopidogrel 75 MG Tab PO SCH (07:46)
[2019-01-04] MEDS: Metoprolol Succinate 25 MG Tab.ER PO SCH (07:47)
[2019-01-04] MEDS: Vancomycin 125 MG/2.5 ML Oral Solution 2.5 ML UD Cup PO SCH ×4 (07:47→19:53)
[2019-01-04] MEDS: MEGESTROL ACETATE PO SCH (07:48)
[2019-01-04] MEDS: Nystatin Susp 100,000 Unit/ML 5 ML UD Cup PO SCH ×4 (07:49→19:53)
[2019-01-04] MEDS: Enoxaparin 40 MG/0.4 ML Syringe SUBCUT SCH (16:08)
[2019-01-04] MEDS: Sertraline 25 MG Tab PO SCH (19:53)
[2019-01-05] MEDS: Piperacillin/Tazobactam 3.375 GM in Sodium Chloride 0.9% 50 ML IV SCH ×6 (06:33→23:46)
[2019-01-05] MEDS: Nystatin Susp 100,000 Unit/ML 5 ML UD Cup PO SCH ×4 (08:00→20:13)
[2019-01-05] MEDS: Vancomycin 125 MG/2.5 ML Oral Solution 2.5 ML UD Cup PO SCH ×4 (08:00→20:13)
[2019-01-05] MEDS: Gabapentin 300 MG Cap PO SCH ×3 (08:00→20:13)
[2019-01-05] MEDS: Calcium Carbonate 500 MG Tab.Chew PO SCH ×3 (08:00→20:13)
[2019-01-05] MEDS: Aspirin 81 MG Tab.EC PO SCH (08:00)
[2019-01-05] MEDS: Pantoprazole 40 MG Tab.CR PO SCH ×2 (08:00→20:13)
[2019-01-05] MEDS: Clopidogrel 75 MG Tab PO SCH (08:01)
[2019-01-05] MEDS: MEGESTROL ACETATE PO SCH (08:01)
[2019-01-05] MEDS: Metoprolol Succinate 25 MG Tab.ER PO SCH (08:06)
[2019-01-05] MEDS: Enoxaparin 40 MG/0.4 ML Syringe SUBCUT SCH (16:09)
[2019-01-05] MEDS: Sertraline 25 MG Tab PO SCH (20:13)
[2019-01-06] MEDS: Piperacillin/Tazobactam 3.375 GM in Sodium Chloride 0.9% 50 ML IV SCH ×2 (07:00→12:40)
[2019-01-06] MEDS: Gabapentin 300 MG Cap PO SCH ×3 (07:55→20:58)
[2019-01-06] MEDS: Nystatin Susp 100,000 Unit/ML 5 ML UD Cup PO SCH ×4 (07:55→20:58)
[2019-01-06] MEDS: Aspirin 81 MG Tab.EC PO SCH (07:55)
[2019-01-06] MEDS: Calcium Carbonate 500 MG Tab.Chew PO SCH ×3 (07:55→20:58)
[2019-01-06] MEDS: Vancomycin 125 MG/2.5 ML Oral Solution 2.5 ML UD Cup PO SCH ×4 (07:56→20:58)
[2019-01-06] MEDS: Clopidogrel 75 MG Tab PO SCH (07:56)
[2019-01-06] MEDS: Pantoprazole 40 MG Tab.CR PO SCH ×2 (07:56→20:58)
[2019-01-06] MEDS: Metoprolol Succinate 25 MG Tab.ER PO SCH (07:57)
[2019-01-06] MEDS: MEGESTROL ACETATE PO SCH (08:27)
[2019-01-06 10:49] LABS: CHLORIDE,CL 106 mEq/L (98-106); SODIUM,NA 139 mEq/L (136-145)
[2019-01-06] MEDS: Enoxaparin 40 MG/0.4 ML Syringe SUBCUT SCH (16:21)
[2019-01-06] MEDS: Sertraline 25 MG Tab PO SCH (20:58)
[2019-01-07] MEDS: Nystatin Susp 100,000 Unit/ML 5 ML UD Cup PO SCH ×4 (07:57→19:29)
[2019-01-07] MEDS: Aspirin 81 MG Tab.EC PO SCH (07:57)
[2019-01-07] MEDS: MEGESTROL ACETATE PO SCH (07:57)
[2019-01-07] MEDS: Clopidogrel 75 MG Tab PO SCH (07:57)
[2019-01-07] MEDS: Gabapentin 300 MG Cap PO SCH ×3 (07:57→19:29)
[2019-01-07] MEDS: Pantoprazole 40 MG Tab.CR PO SCH ×2 (07:57→19:29)
[2019-01-07] MEDS: Vancomycin 125 MG/2.5 ML Oral Solution 2.5 ML UD Cup PO SCH ×4 (07:58→19:29)
[2019-01-07] MEDS: Calcium Carbonate 500 MG Tab.Chew PO SCH ×3 (07:58→19:29)
[2019-01-07] MEDS: Metoprolol Succinate 25 MG Tab.ER PO SCH (08:02)
[2019-01-07] MEDS ORDERED: Lactated Ringers 1,000 ML IV SCH (12:45)
[2019-01-07] MEDS: Enoxaparin 40 MG/0.4 ML Syringe SUBCUT SCH (15:53)
[2019-01-07] MEDS: Sertraline 25 MG Tab PO SCH (19:29)
--- NOTE | 2019-01-07 21:50 | PCM.PN ---
- General Info Date of Service: 01/07/19 Admission Dx/Problem (Free Text): UTI Weakness Diarrhea/C Diff History of metastatic Ovarian CA Functional Status: Reports: Pain Controlled, Tolerating Diet, Ambulating - Review of Systems General: Reports: Weakness, Fatigue, Malaise HEENT: Reports: Other (mouth sores have improved) Pulmonary: Denies: Shortness of Breath, Cough Cardiovascular: Reports: Lightheadedness. Denies: Chest Pain, Edema Gastrointestinal: Denies: Abdominal Pain, Nausea, Vomiting Genitourinary: Reports: No Symptoms Musculoskeletal: Reports: No Symptoms Skin: Reports: No Symptoms Neurological: Reports: Syncope, Weakness - Patient Data Vitals - Most Recent: Last Vital Signs Temp 97.8 F 01/07/19 19:26 Pulse 69 01/07/19 19:26 Resp 16 01/07/19 19:26 BP 118/53 L 01/07/19 19:26 Pulse Ox 98 01/07/19 19:26 Weight - Most Recent: 137 lb 14.4 oz Med Orders - Current: Current Medications Acetaminophen (Tylenol) 650 mg PO Q4H PRN PRN Reason: Pain (Mild 1-3)/fever Aspirin (Halfprin) 81 mg PO DAILY [facility] Last Admin: 01/07/19 07:57 Dose: 81 mg Calcium Carbonate/Glycine (Tums) 500 mg PO TID [facility] Last Admin: 01/07/19 19:29 Dose: 500 mg Clopidogrel Bisulfate (Plavix) 75 mg PO DAILY [facility] Last Admin: 01/07/19 07:57 Dose: 75 mg Enoxaparin Sodium (Lovenox) 40 mg SUBCUT Q24H [facility] Last Admin: 01/07/19 15:53 Dose: 40 mg Gabapentin (Neurontin) 300 mg PO TID [facility] Last Admin: 01/07/19 19:29 Dose: 300 mg Heparin Sodium (Porcine) (Heparin Lock Flush 100 Units/Ml) 500 units FLUSH ASDIRECTED PRN PRN Reason: port flush Last Admin: 01/05/19 23:46 Dose: 500 units Lactated Ringer's (Ringers, Lactated) 1,000 mls @ 125 mls/hr IV ASDIRECTED [facility] Last Admin: 01/07/19 13:26 Dose: 125 mls/hr Loperamide HCl (Imodium) 2 mg PO Q4H PRN PRN Reason: Diarrhea Last Admin: 01/01/19 20:57 Dose: 2 mg Metoprolol Succinate (Toprol Xl) 25 mg PO DAILY [facility] Last Admin: 01/07/19 08:02 Dose: 25 mg Mometasone Furoate/Formoterol Fumar (Dulera 200-5 Mcg) 2 puff IH BID PRN PRN Reason: Shortness of Breath Ptom Megestrol (Acetate] 20 Ml Susp) 20 ml PO DAILY [facility] Last Admin: 01/07/19 07:57 Dose: 20 ml Nystatin (Mycostatin) 5 ml PO QID [facility] Last Admin: 01/07/19 19:29 Dose: 5 ml Ondansetron HCl (Zofran Odt) 4 mg PO Q4H PRN PRN Reason: nausea, able to take PO Ondansetron HCl (Zofran) 4 mg IV Q4H PRN PRN Reason: Nausea/Vomiting Oxyquinoline Sulfate (Bag [place] Oint) 0 oz TOP ASDIRECTED PRN PRN Reason: Sore Throat Last Admin: 12/31/18 17:53 Dose: 1 applic Pantoprazole Sodium (Protonix) 40 mg PO BID [facility] Last Admin: 01/07/19 19:29 Dose: 40 mg Polyethylene Glycol (Miralax) 17 gm PO DAILY PRN PRN Reason: Constipation Sertraline HCl (Zoloft) 25 mg PO BEDTIME [facility] Last Admin: 01/07/19 19:29 Dose: 25 mg Sodium Chloride (Saline Flush) 10 ml FLUSH ASDIRECTED PRN PRN Reason: Keep Vein Open Vancomycin HCl (Vancocin 125 Mg/2.5 Ml Soln) 125 mg PO QID [facility] Last Admin: 01/07/19 19:29 Dose: 125 mg Discontinued Medications Piperacillin Sod/Tazobactam (Sod 3.375 gm/ Sodium Chloride) 50 mls @ 100 mls/ hr IV Q6H [facility] Last Admin: 01/06/19 12:40 Dose: 100 mls/hr Pantoprazole Sodium (Protonix Iv) 40 mg IVPUSH BID [facility] Last Admin: 01/03/19 08:08 Dose: 40 mg Piperacillin Sod/Tazobactam Sod (Zosyn) Confirm Administered Dose 3.375 gm .ROUTE .STK-MED ONE Stop: 01/01/19 12:16 Last Admin: 01/01/19 13:06 Dose: Not Given Sodium Chloride (Saline Flush) 10 ml FLUSH ASDIRECTED PRN PRN Reason: Keep Vein Open - Exam General: Alert, Oriented HEENT: Mucous Membr. Moist/[place] Neck: Supple Lungs: Clear to Auscultation, Normal Respiratory Effort Cardiovascular: Regular Rate, Regular Rhythm GI/Abdominal Exam: Normal Bowel Sounds, Soft, Non-Tender Extremities: Normal Inspection, No Pedal Edema Skin: Warm, Dry Neurological: Other (syncopal episode this am) - Problem List & Annotations (1) Syncope SNOMED Code(s): 698671076 Code(s): R55 - SYNCOPE AND COLLAPSE Status: Acute Priority: High Current Visit: Yes Qualifiers: Syncope type: vasovagal syncope Qualified Code(s): R55 - Syncope and collapse (2) Diarrhea SNOMED Code(s): 01798120 Code(s): R19.7 - DIARRHEA, UNSPECIFIED Status: Acute Priority: High Current Visit: Yes Qualifiers: Diarrhea type: infectious Qualified Code(s): A09 - Infectious gastroenteritis and colitis, unspecified (3) Ovarian cancer SNOMED Code(s): 949957576 Code(s): C56.9 - MALIGNANT NEOPLASM OF UNSPECIFIED OVARY Status: Acute Priority: High Current Visit: Yes Qualifiers: Laterality: right (4) Palliative care status SNOMED Code(s): 987786858 Code(s): Z51.5 - ENCOUNTER FOR PALLIATIVE CARE Status: Acute Priority: High Current Visit: Yes (5) UTI (urinary tract infection) SNOMED Code(s): 21629768 Code(s): N39.0 - URINARY TRACT INFECTION, SITE NOT SPECIFIED Status: Acute Priority: High Current Visit: Yes Qualifiers: Urinary tract infection type: acute cystitis Hematuria presence: without hematuria Qualified Code(s): N30.00 - Acute cystitis without hematuria (6) Weakness SNOMED Code(s): 67526367 Code(s): R53.1 - WEAKNESS Status: Acute Priority: High Current Visit: Yes - Problem List Review Problem List Initiated/Reviewed/Updated: Yes - My Orders Last 24 Hours: My Active Orders 01/07/19 10:06 Head wo Cont [CT] Stat 01/07/19 12:45 Lactated Ringers [Ringers, Lactated] 1,000 ml IV ASDIRECTED - Assessment Assessment:: Syncope - Plan Plan:: Patient seen today due to syncopal episode this am. Was up to the bathroom per self with walker as has been tolerating this well, found lying on the floor in the bathroom. Had been on the toilet, had BM. Question if vasovagal reaction as found lying by the toilet. At present, patient denies headache. Does have mild swelling to the right cheek. Neuro check within normal limits. Denies any recall of the events but does not feel any lightheadedness while lying down now. Vital signs noted to still have mildly low blood pressure which has been an intermittent concern for her at times. CT scan of the head was done, awaiting report. Continue neuro checks through the day. Ice to cheek as needed. Did have labs yesterday which were stable for her. Will continue to monitor. Assist when up. Give 1 liter of fluids today.
[2019-01-08] MEDS: Vancomycin 125 MG/2.5 ML Oral Solution 2.5 ML UD Cup PO SCH ×4 (07:25→19:41)
[2019-01-08] MEDS: Nystatin Susp 100,000 Unit/ML 5 ML UD Cup PO SCH ×4 (07:25→19:41)
[2019-01-08] MEDS: Metoprolol Succinate 25 MG Tab.ER PO SCH (07:26)
[2019-01-08] MEDS: Gabapentin 300 MG Cap PO SCH ×3 (07:26→19:41)
[2019-01-08] MEDS: Clopidogrel 75 MG Tab PO SCH (07:26)
[2019-01-08] MEDS: Aspirin 81 MG Tab.EC PO SCH (07:26)
[2019-01-08] MEDS: Pantoprazole 40 MG Tab.CR PO SCH ×2 (07:26→19:41)
[2019-01-08] MEDS: Calcium Carbonate 500 MG Tab.Chew PO SCH ×3 (07:26→19:41)
[2019-01-08] MEDS: MEGESTROL ACETATE PO SCH (07:27)
[2019-01-08] MEDS: Enoxaparin 40 MG/0.4 ML Syringe SUBCUT SCH (15:54)
[2019-01-08] MEDS ORDERED: Lactated Ringers 1,000 ML IV ONE (16:06)
[2019-01-08] MEDS: Sertraline 25 MG Tab PO SCH (19:41)
[2019-01-09] MEDS: Calcium Carbonate 500 MG Tab.Chew PO SCH (07:19)
[2019-01-09] MEDS: Nystatin Susp 100,000 Unit/ML 5 ML UD Cup PO SCH ×2 (07:19→11:46)
[2019-01-09] MEDS: Vancomycin 125 MG/2.5 ML Oral Solution 2.5 ML UD Cup PO SCH ×2 (07:19→11:46)
[2019-01-09] MEDS: Gabapentin 300 MG Cap PO SCH (07:20)
[2019-01-09] MEDS: Aspirin 81 MG Tab.EC PO SCH (07:20)
[2019-01-09] MEDS: Pantoprazole 40 MG Tab.CR PO SCH (07:20)
[2019-01-09] MEDS: Clopidogrel 75 MG Tab PO SCH (07:20)
[2019-01-09] MEDS: Metoprolol Succinate 25 MG Tab.ER PO SCH (07:21)
[2019-01-09] MEDS: MEGESTROL ACETATE PO SCH (07:21)
[2019-01-09 08:56] VITALS: BP 127/83
--- NOTE | 2019-01-09 10:59 | PCM.DCSUM1 ---
Discharge Summary - Hospital Course HPI Initial Comments: Angeles is a 78 year old female who was admitted to the hospital from the clinic on 12/27/2018 with weakness and diarrhea. She is currently undergoing chemotherapy for ovarian cancer and reports she gets very worn out following chemo. She reports she is not planning to receive any further chemotherapy infusions due to this. She was dehydrated on admission and did receive IV fluids with improvement. Stool studies were positive for CDiff. She was treated with oral vancomycin. Urine culture also revealed citrobacter braaki, sensitive to Zosyn. She was treated with course of Zosyn. She did have renal US, which revealed 1.9 cm simple cyst and atrophic left kidney. She was advised to follow up with urology. She was feeling light headed and dizzy on admission, which improved throughout hospital stay. Patient was transferred to swing bed on 2018 for ongoing weakness, fatigue. Throughout swing bed stay, patient continued to improve. She did have syncopal episode on 01/07/2019, which was presumed to be vasovagal. Did have negative head CT as well as negative neuro exams. Patient did have mildly low blood pressure so did receive an additional liter of fluids. On day of discharge, patient had been doing well with PT. [place] she was ready to go home. Was up independently with walker and had been ambulating in the [place]. She reports much improved appetite since seeing Dr. Man the day prior. She will be discharged home on previous meds. Does have follow up with Dr. Man, oncology on 02/06/2019 as well as urology follow up 01/15/2019. She is advised to follow up with her PCP sooner if any issues. Diagnosis: Stroke: No - Discharge Data Discharge Date: 01/09/19 Discharge Disposition: Home, W Home Health Agency 06 Condition: Good - Discharge Diagnosis/Problem(s) (1) Ovarian cancer SNOMED Code(s): 947125401 ICD Code: C56.9 - MALIGNANT NEOPLASM OF UNSPECIFIED OVARY Status: Acute Priority: High Qualifiers: Laterality: right Qualified Code(s): C56.1 - Malignant neoplasm of right ovary; C56.0 - Malignant neoplasm of right ovary (2) Palliative care status SNOMED Code(s): 218752047 ICD Code: Z51.5 - ENCOUNTER FOR PALLIATIVE CARE Status: Acute Priority: High (3) Weakness SNOMED Code(s): 02517922 ICD Code: R53.1 - WEAKNESS Status: Acute Priority: High (4) C. difficile diarrhea SNOMED Code(s): 3136031617394 ICD Code: A04.72 - ENTEROCOLITIS D/T CLOSTRIDIUM DIFFICILE, NOT SPCF RECUR Status: Acute (5) UTI (urinary tract infection) SNOMED Code(s): 95335347 ICD Code: N39.0 - URINARY TRACT INFECTION, SITE NOT SPECIFIED Status: Acute Priority: High Qualifiers: Urinary tract infection type: acute cystitis Hematuria presence: without hematuria Qualified Code(s): N30.00 - Acute cystitis without hematuria - Patient Summary/Data Consults: Consultations 01/01/19 12:24 Consult to Physical Therapy [PT Evaluation and Treatment] [CONS] Routine - Patient Instructions Diet: Usual Diet as Tolerated Activity: As Tolerated, No Strenuous Activities Notify Provider of: Fever, Increased Pain, Nausea and/or Vomiting - Discharge Plan *PRESCRIPTION DRUG MONITORING PROGRAM REVIEWED*: Not Applicable *COPY OF PRESCRIPTION DRUG MONITORING REPORT IN PATIENT KATHY: Not Applicable Home Medications: Home Meds Aspirin [Halfprin] 81 mg PO DAILY 01/07/16 [History] Nitroglycerin [Nitrolingual] 0.4 gm SL ASDIRECTED PRN 01/07/16 [History] Ubidecarenone [COQ-10] 30 mg PO DAILY 01/07/16 [History] atorvaSTATin Calcium [Atorvastatin Calcium] 40 mg PO BEDTIME 01/07/16 [History] Acetaminophen [Tylenol] 325 mg PO Q4H PRN 07/23/18 [History] Budesonide/Formoterol Fumarate [Symbicort 80-4.5 Mcg Inhaler] 2 inh INH BID PRN 07/23/18 [History] Ondansetron [Zofran] 4 - 8 mg PO Q4H PRN 07/23/18 [History] Polyethylene Glycol 3350 [MiraLAX] 17 gm PO DAILY PRN 07/23/18 [History] Gabapentin [Neurontin] 300 mg PO TID 10/01/18 [History] Simethicone 80 mg PO Q4H PRN #30 tab.chew 11/02/18 [Rx] Clopidogrel Bisulfate [Clopidogrel] 75 mg PO DAILY 11/07/18 [History] Sertraline [Zoloft] 25 mg PO BEDTIME #30 tablet 11/22/18 [Rx] Megestrol Acetate 20 ml PO DAILY 12/27/18 [History] Metoprolol Succinate 25 mg PO DAILY 12/27/18 [History] Patient Handouts: Clostridium Difficile Infection, Urinary Tract Infection, Adult - Discharge Summary/Plan Comment DC Time >30 min.: No - General Info Date of Service: 01/09/19 Admission Dx/Problem (Free Text: UTI Weakness Diarrhea/C Diff History of metastatic Ovarian CA Subjective Update: On day of discharge, patient reports she is feeling well and wishes to go home. She reports her appetite is much improved and she feels she has gotten her strength back. Offers no complaints. Functional Status: Reports: Pain Controlled, Tolerating Diet, Ambulating, Urinating. Denies: New Symptoms - Review of Systems General: Reports: No Symptoms Pulmonary: Reports: No Symptoms Cardiovascular: Reports: No Symptoms Gastrointestinal: Reports: No Symptoms. Denies: Decreased Appetite, Diarrhea Genitourinary: Reports: No Symptoms Musculoskeletal: Reports: No Symptoms Neurological: Reports: No Symptoms Psychiatric: Reports: No Symptoms - Patient Data Vitals - Most Recent: Last Vital Signs Temp 98.3 F 01/09/19 08:00 Pulse 75 01/09/19 08:00 Resp 16 01/09/19 08:00 BP 127/83 01/09/19 08:00 Pulse Ox 99 01/09/19 08:00 Weight - Most Recent: 136 lb Med Orders - Current: Current Medications Acetaminophen (Tylenol) 650 mg PO Q4H PRN PRN Reason: Pain (Mild 1-3)/fever Aspirin (Halfprin) 81 mg PO DAILY [facility] Last Admin: 01/09/19 07:20 Dose: 81 mg Calcium Carbonate/Glycine (Tums) 500 mg PO TID [facility] Last Admin: 01/09/19 07:19 Dose: 500 mg Clopidogrel Bisulfate (Plavix) 75 mg PO DAILY [facility] Last Admin: 01/09/19 07:20 Dose: 75 mg Enoxaparin Sodium (Lovenox) 40 mg SUBCUT Q24H [facility] Last Admin: 01/08/19 15:54 Dose: 40 mg Gabapentin (Neurontin) 300 mg PO TID [facility] Last Admin: 01/09/19 07:20 Dose: 300 mg Heparin Sodium (Porcine) (Heparin Lock Flush 100 Units/Ml) 500 units FLUSH ASDIRECTED PRN PRN Reason: port flush Last Admin: 01/09/19 10:41 Dose: 500 units Loperamide HCl (Imodium) 2 mg PO Q4H PRN PRN Reason: Diarrhea Last Admin: 01/01/19 20:57 Dose: 2 mg Metoprolol Succinate (Toprol Xl) 25 mg PO DAILY [facility] Last Admin: 01/09/19 07:21 Dose: 25 mg Mometasone Furoate/Formoterol Fumar (Dulera 200-5 Mcg) 2 puff IH BID PRN PRN Reason: Shortness of Breath Ptom Megestrol (Acetate] 20 Ml Susp) 20 ml PO DAILY [facility] Last Admin: 01/09/19 07:21 Dose: 20 ml Nystatin (Mycostatin) 5 ml PO QID [facility] Last Admin: 01/09/19 07:19 Dose: 5 ml Ondansetron HCl (Zofran Odt) 4 mg PO Q4H PRN PRN Reason: nausea, able to take PO Ondansetron HCl (Zofran) 4 mg IV Q4H PRN PRN Reason: Nausea/Vomiting Oxyquinoline Sulfate (Bag [place] Oint) 0 oz TOP ASDIRECTED PRN PRN Reason: Sore Throat Last Admin: 12/31/18 17:53 Dose: 1 applic Pantoprazole Sodium (Protonix) 40 mg PO BID [facility] Last Admin: 01/09/19 07:20 Dose: 40 mg Polyethylene Glycol (Miralax) 17 gm PO DAILY PRN PRN Reason: Constipation Sertraline HCl (Zoloft) 25 mg PO BEDTIME [facility] Last Admin: 01/08/19 19:41 Dose: 25 mg Sodium Chloride (Saline Flush) 10 ml FLUSH ASDIRECTED PRN PRN Reason: Keep Vein Open Vancomycin HCl (Vancocin 125 Mg/2.5 Ml Soln) 125 mg PO QID [facility] Last Admin: 01/09/19 07:19 Dose: 125 mg Discontinued Medications Piperacillin Sod/Tazobactam (Sod 3.375 gm/ Sodium Chloride) 50 mls @ 100 mls/ hr IV Q6H [facility] Last Admin: 01/06/19 12:40 Dose: 100 mls/hr Lactated Ringer's (Ringers, Lactated) 1,000 mls @ 125 mls/hr IV ASDIRECTED [facility] Last Admin: 01/07/19 13:26 Dose: 125 mls/hr Lactated Ringer's (Ringers, Lactated) 1,000 mls @ 125 mls/hr IV ONETIME ONE Stop: 01/09/19 00:05 Last Admin: 01/08/19 16:22 Dose: 125 mls/hr Pantoprazole Sodium (Protonix Iv) 40 mg IVPUSH BID [facility] Last Admin: 01/03/19 08:08 Dose: 40 mg Piperacillin Sod/Tazobactam Sod (Zosyn) Confirm Administered Dose 3.375 gm .ROUTE .STK-MED ONE Stop: 01/01/19 12:16 Last Admin: 01/01/19 13:06 Dose: Not Given Sodium Chloride (Saline Flush) 10 ml FLUSH ASDIRECTED PRN PRN Reason: Keep Vein Open - Exam General: Reports: Alert, Oriented, No Acute Distress Neck: Reports: Supple Lungs: Reports: Clear to Auscultation, Normal Respiratory Effort Cardiovascular: Reports: Regular Rate, Regular Rhythm GI/Abdominal Exam: Normal Bowel Sounds, Soft, Non-Tender, No Organomegaly, No Distention, No Abnormal Bruit, No Mass, Pelvis Stable Back Exam: Reports: Normal Inspection, Full Range of Motion Extremities: Normal Inspection, Normal Range of Motion, Non-Tender, No Pedal Edema, Normal Capillary Refill Neurological: Reports: No New Focal Deficit Psy/Mental Status: Reports: Alert, Normal Affect, Normal Mood
== END 2019-01-09 13:08 | disposition home health service (06) | DRG 372 ==
LOC: CC.MS 08:39 → UNDOADMIN 10:46 → CC.MS 10:46
PROVIDERS: ADMIT Family Medicine; ATTEND Family Medicine
DX: A04.72 Enterocolitis due to Clostridium difficile, not specified as recurrent (principal); C56.9 Malignant neoplasm of unspecified ovary; N30.00 Acute cystitis without hematuria; R53.1 Weakness; Z51.5 Encounter for palliative care; E86.0 Dehydration; N26.1 Atrophy of kidney (terminal); N28.1 Cyst of kidney, acquired; R55 Syncope and collapse; Z79.82 Long term (current) use of aspirin; Z79.899 Other long term (current) drug therapy
CPT/HCPCS: 36415; 70450; 76770; 80048; 81001; 85025; 86140; 97110-GP; 97161-GP; A9270-GY; C9113; J1642; J1650; J2543; J7050; J7120

== ENCOUNTER 2019-09-23 16:36 | Observation (INO) | payer MEDICARE, OTHER ==
[2019-09-23 17:11] LABS: CHLORIDE,CL 100 mEq/L (98-106); SODIUM,NA 133 mEq/L (136-145)
[2019-09-23] MEDS ORDERED: fentaNYL 100 MCG/2 ML SDV ONE (17:11)
[2019-09-23] MEDS ORDERED: fentaNYL 100 MCG/2 ML SDV IV ONE (17:15)
[2019-09-23] MEDS ORDERED: Docusate Sodium 100 MG Cap PO PRN (18:00)
[2019-09-23] MEDS ORDERED: Ondansetron 4 MG/2 ML SDV IV PRN (18:00)
[2019-09-23] MEDS ORDERED: Magnesium Hydroxide 400 MG/5 ML Susp 30 ML Cup PO PRN (18:00)
[2019-09-23] MEDS ORDERED: Sodium Chloride 0.9% 1,000 ML IV SCH (18:00)
[2019-09-23] MEDS ORDERED: Enoxaparin 30 MG/0.3 ML Syringe SUBCUT SCH (18:00)
[2019-09-23] MEDS ORDERED: fentaNYL 100 MCG/2 ML SDV IVPUSH PRN (18:00)
[2019-09-23] MEDS ORDERED: ONDANSETRON PO PRN (18:04)
[2019-09-23] MEDS ORDERED: Clopidogrel 75 MG Tab**OWN MED PO SCH (20:00)
[2019-09-23] MEDS ORDERED: Enoxaparin 40 MG/0.4 ML Syringe SUBCUT SCH (20:00)
[2019-09-23] MEDS ORDERED: Sertraline 25 MG Tab**OWN MED PO SCH (20:00)
[2019-09-23] MEDS ORDERED: Acetaminophen 325 MG Tab PO SCH (20:00)
[2019-09-23] MEDS: Gabapentin 300 MG Cap**OWN MED PO SCH (20:45)
[2019-09-23] MEDS ORDERED: Ondansetron 4 MG Tab.DIS**OWN MED PO PRN (20:49)
[2019-09-24 07:08] LABS: CHLORIDE,CL 106 mEq/L (98-106); SODIUM,NA 138 mEq/L (136-145)
[2019-09-24 07:59] VITALS: BP 145/56; PULSE 83
[2019-09-24] MEDS ORDERED: Aspirin 81 MG Tab.EC**OWN MED PO SCH (08:00)
[2019-09-24] MEDS: Gabapentin 300 MG Cap**OWN MED PO SCH (08:00)
[2019-09-24] MEDS ORDERED: Acetaminophen 500 MG Tab PO SCH (08:00)
[2019-09-24] MEDS ORDERED: Non-Formulary Medication 1 Each (Letrozole [Letrozole] 2.5 MG) PO SCH (08:00)
--- NOTE | 2019-09-24 21:29 | PCM.DCSUM1 ---
Discharge Summary - Hospital Course Free Text/Narrative:: Patient presented to clinic to see Lamont Pugh for RUQ abdominal pain. Had thought possibly related to constipation but had bowel movement and did not relieve pain. No associated fever. No blood in her stools. History of ovarian cancer. Labs done, normal WBC. Creatinine, electrolytes normal. Lipase mildly elevated. No bowel obstruction noted on xray. Admitted and started on IV fluids. Diagnosis: Stroke: No Modified Tripp Scale: No Symptoms at All Modified Francisco Scale Score: 0 - Discharge Data Discharge Date: 09/24/19 Discharge Disposition: Home, Self-Care 01 Condition: Good - Referral to Home Health Primary Care Physician: James Uriarte MD - Patient Summary/Data Complications: none Hospital Course: Patient doing well. Had relief of pain around midnight last night. Feels good this am. Labs remain normal, lipase returned to normal. Tolerated breakfast this am without nausea, vomiting or abdominal pain. Ambulating with walker. Will discharge home. Advised patient that if pain returns, may need to proceed with CT scan of abdomen. Follow up with Lamont Pugh in one week. - Patient Instructions Diet: Usual Diet as Tolerated Activity: As Tolerated Showering/Bathing: May Shower - Discharge Plan *PRESCRIPTION DRUG MONITORING PROGRAM REVIEWED*: No *COPY OF PRESCRIPTION DRUG MONITORING REPORT IN PATIENT KATHY: No Home Medications: Home Meds Aspirin [Halfprin] 81 mg PO DAILY 01/07/16 [History] Nitroglycerin [Nitrolingual] 0.4 gm SL ASDIRECTED PRN 01/07/16 [History] Ubidecarenone [COQ-10] 30 mg PO DAILY 01/07/16 [History] atorvaSTATin Calcium [Atorvastatin Calcium] 40 mg PO BEDTIME 01/07/16 [History] Acetaminophen [Tylenol] 325 mg PO Q4H PRN 07/23/18 [History] Ondansetron [Zofran] 4 - 8 mg PO Q4H PRN 07/23/18 [History] Gabapentin [Neurontin] 300 mg PO TID 10/01/18 [History] Clopidogrel Bisulfate [Clopidogrel] 75 mg PO BEDTIME 11/07/18 [History] Sertraline [Zoloft] 25 mg PO BEDTIME #30 tablet 11/22/18 [Rx] Referrals: Petr Pugh PA-C [Physician Systematic Theology Professor] - (Follow up with Lamont Pugh in one week) - Discharge Summary/Plan Comment DC Time >30 min.: No - General Info Date of Service: 09/24/19 Admission Dx/Problem (Free Text: RUQ pain Functional Status: Reports: Pain Controlled, Tolerating Diet, Ambulating - Review of Systems General: Denies: Fever, Weakness, Fatigue HEENT: Reports: No Symptoms Pulmonary: Denies: Shortness of Breath, Cough Cardiovascular: Denies: Chest Pain, Edema, Lightheadedness Gastrointestinal: Denies: Abdominal Pain, Diarrhea, Nausea, Vomiting Genitourinary: Reports: No Symptoms Musculoskeletal: Reports: No Symptoms Skin: Reports: No Symptoms Neurological: Reports: No Symptoms - Patient Data Vitals - Most Recent: Last Vital Signs Temp 99.1 F 09/24/19 07:59 Pulse 83 09/24/19 07:59 Resp 18 09/24/19 07:59 BP 145/56 H 09/24/19 07:59 Pulse Ox 98 09/24/19 07:59 Weight - Most Recent: 153 lb 3.2 oz Lab Results - Last 24 hrs: Laboratory Results - last 24 hr 09/23/19 09/24/19 09/24/19 Range/Units 20:10 06:50 06:50 WBC 3.8 L (5.0-10.0) 10^3/uL RBC 2.62 L (4.00-5.50) 10^6/uL Hgb 9.2 L (12.0-16.0) g/dL Hct 28.4 L (37.0-47.0) % MCV 108.4 H (82.0-94.0) fL MCH 35.1 H (27.0-32.0) pg MCHC 32.4 L (33.0-38.0) g/dL RDW Coeff of [place]on 13.7 (11.0-15.0) % Plt Count 233 (150-400) 10^3/uL Neut % (Auto) 53.8 (35-85) % Lymph % (Auto) 24.9 (10-55) % [place] % (Auto) 18.3 H (0-16) % Eos % (Auto) 2.7 (0-5) % Baso % (Auto) 0.3 (0-3) % Neut # (Auto) 2.03 (1.80-7.00) 10^3/uL Lymph # (Auto) 0.94 L (1.00-4.80) 10^3/uL [place] # (Auto) 0.69 (0.00-0.80) 10^3/uL Eos # (Auto) 0.10 (0.00-0.45) 10^3/uL Baso # (Auto) 0.01 10^3/uL Sodium 138 (136-145) mEq/L Potassium 4.3 (3.5-5.0) mEq/L Chloride 106 (98-106) mEq/L Carbon Dioxide 22 (21-32) mmol/L BUN 16 (7-18) mg/dL Creatinine 0.9 (0.6-1.0) mg/dL Est Cr Clr Drug Dosing 51.13 mL/min Estimated GFR (MDRD) > 60 (>=60) mL/min Glucose 84 (75-99) mg/dL Calcium 8.1 L (8.4-10.1) mg/dL C-Reactive Protein 0.6 (0.2-0.8) mg/dL Lipase (73-393) U/L Urine Color Yellow (YELLOW) Urine Appearance Cloudy (CLEAR) Urine pH 5.5 (4.5-8.0) Ur Specific [place] 1.020 (1.003-1.020) Urine Protein 100 H (NEGATIVE) mg/dL Urine Glucose (UA) Negative (NEGATIVE) mg/dL Urine Ketones Negative (NEGATIVE) mg/dL Urine Occult Blood Trace-intact H (NEGATIVE) Urine Nitrite Positive H (NEGATIVE) Urine Bilirubin Negative (NEGATIVE) Urine Urobilinogen 0.2 (0.2-1.0) EU/dL Ur Leukocyte Esterase Trace H (NEGATIVE) Urine RBC 0-5 (0-5) /HPF Urine WBC 30-40 H (0-5) /HPF Urine WBC Clumps Few H (NOT SEEN) /HPF Ur Squamous Epith Cells Few H (NOT SEEN) /HPF Calcium Oxalate Crystal Few H (NOT SEEN) /HPF Urine Bacteria Many H (NOT SEEN) /HPF Hyaline Casts Few H (NOT SEEN) /LPF Urinalysis Comment See note 09/24/19 Range/Units 06:50 WBC (5.0-10.0) 10^3/uL RBC (4.00-5.50) 10^6/uL Hgb (12.0-16.0) g/dL Hct (37.0-47.0) % MCV (82.0-94.0) fL MCH (27.0-32.0) pg MCHC (33.0-38.0) g/dL RDW Coeff of [place] (11.0-15.0) % Plt Count (150-400) 10^3/uL Neut % (Auto) (35-85) % Lymph % (Auto) (10-55) % [place] % (Auto) (0-16) % Eos % (Auto) (0-5) % Baso % (Auto) (0-3) % Neut # (Auto) (1.80-7.00) 10^3/uL Lymph # (Auto) (1.00-4.80) 10^3/uL [place] # (Auto) (0.00-0.80) 10^3/uL Eos # (Auto) (0.00-0.45) 10^3/uL Baso # (Auto) 10^3/uL Sodium (136-145) mEq/L Potassium (3.5-5.0) mEq/L Chloride (98-106) mEq/L Carbon Dioxide (21-32) mmol/L BUN (7-18) mg/dL Creatinine (0.6-1.0) mg/dL Est Cr Clr Drug Dosing mL/min Estimated GFR (MDRD) (>=60) mL/min Glucose (75-99) mg/dL Calcium (8.4-10.1) mg/dL C-Reactive Protein (0.2-0.8) mg/dL Lipase 266 (73-393) U/L Urine Color (YELLOW) Urine Appearance (CLEAR) Urine pH (4.5-8.0) Ur Specific [place] (1.003-1.020) Urine Protein (NEGATIVE) mg/dL Urine Glucose (UA) (NEGATIVE) mg/dL Urine Ketones (NEGATIVE) mg/dL Urine Occult Blood (NEGATIVE) Urine Nitrite (NEGATIVE) Urine Bilirubin (NEGATIVE) Urine Urobilinogen (0.2-1.0) EU/dL Ur Leukocyte Esterase (NEGATIVE) Urine RBC (0-5) /HPF Urine WBC (0-5) /HPF Urine WBC Clumps (NOT SEEN) /HPF Ur Squamous Epith Cells (NOT SEEN) /HPF Calcium Oxalate Crystal (NOT SEEN) /HPF Urine Bacteria (NOT SEEN) /HPF Hyaline Casts (NOT SEEN) /LPF Urinalysis Comment Med Orders - Current: Current Medications Discontinued Medications Acetaminophen (Tylenol) 1,000 mg PO BID [facility] Last Admin: 09/23/19 19:53 Dose: 1,000 mg Acetaminophen (Tylenol Extra Strength) 1,000 mg PO Q12H [facility] Last Admin: 09/24/19 07:59 Dose: Not Given Aspirin (Halfprin) 81 mg PO DAILY [facility] Last Admin: 09/24/19 08:00 Dose: 81 mg Clopidogrel Bisulfate (Plavix) 75 mg PO BEDTIME [facility] Last Admin: 09/23/19 20:45 Dose: 75 mg Docusate Sodium (Colace) 100 mg PO BID PRN PRN Reason: Constipation Enoxaparin Sodium (Lovenox) 30 mg SUBCUT Q24H [facility] Last Admin: 09/23/19 18:39 Dose: Not Given Enoxaparin Sodium (Lovenox) 40 mg SUBCUT BEDTIME [facility] Last Admin: 09/23/19 19:53 Dose: 40 mg Fentanyl (Sublimaze) Confirm Administered Dose 100 mcg .ROUTE .STK-MED ONE Stop: 09/23/19 17:12 Last Admin: 09/23/19 17:07 Dose: Not Given Fentanyl (Sublimaze) 50 mcg IV ONETIME ONE Stop: 09/23/19 17:16 Last Admin: 09/23/19 17:05 Dose: 50 mcg Fentanyl (Sublimaze) 25 - 50 mcg IVPUSH Q2H PRN PRN Reason: Pain Gabapentin (Neurontin) 300 mg PO TID [facility] Last Admin: 09/24/19 08:00 Dose: 300 mg Heparin Sodium (Porcine) (Heparin Lock Flush 100 Units/Ml) Confirm Administered Dose 500 units .ROUTE .STK-MED ONE Stop: 09/24/19 08:57 Sodium Chloride (Normal Saline) 1,000 mls @ 70 mls/hr IV ASDIRECTED [facility] Last Admin: 09/23/19 18:33 Dose: 70 mls/hr Magnesium Hydroxide (Milk Of Magnesia) 30 ml PO Q12H PRN PRN Reason: Constipation Non-Formulary Medication (Ondansetron) 4 - 8 mg PO Q4H PRN PRN Reason: Nausea Ondansetron HCl (Zofran) 4 mg IV Q4H PRN PRN Reason: Nausea/Vomiting Ondansetron HCl (Zofran Odt) 4 - 8 mg PO Q4H PRN PRN Reason: Nausea Sertraline HCl (Zoloft) 25 mg PO BEDTIME [facility] Last Admin: 09/23/19 20:45 Dose: 25 mg - Exam General: Reports: Alert, Oriented HEENT: Reports: Mucous Membr. Moist/[place] Neck: Reports: Supple Lungs: Reports: Clear to Auscultation, Normal Respiratory Effort Cardiovascular: Reports: Regular Rate, Regular Rhythm GI/Abdominal Exam: Normal Bowel Sounds, Soft, Non-Tender Extremities: Normal Inspection, No Pedal Edema Skin: Reports: Warm, Dry Neurological: Reports: No New Focal Deficit
== END 2019-09-24 12:15 | disposition home or self-care (01) ==
LOC: CC.FCMC 16:36 → CC.MS 16:36 → UNDOADMOB 17:28 → CC.MS 18:00
PROVIDERS: ADMIT Physician Assistant Medical; ATTEND Family Medicine
DX: R10.11 Right upper quadrant pain (principal); K59.00 Constipation, unspecified; Z90.49 Acquired absence of other specified parts of digestive tract; Z85.43 Personal history of malignant neoplasm of ovary; Z88.1 Allergy status to other antibiotic agents; Z79.82 Long term (current) use of aspirin; Z79.899 Other long term (current) drug therapy; Z79.02 Long term (current) use of antithrombotics/antiplatelets
CPT/HCPCS: 36415; 36591; 74019; 80048; 80053; 81001; 81003; 82150; 83605; 83690; 85025; 86140; 87086; 87088; 87186; 96361; 96372; 96374; 99217; 99220; A9270-GY; G0378; J1650; J3010; J7030

== ENCOUNTER 2019-10-21 17:15 | Inpatient (IN) | payer MEDICARE, OTHER ==
[2019-10-21] MEDS ORDERED: Ondansetron 4 MG/2 ML SDV IV PRN (17:23)
[2019-10-21] MEDS ORDERED: cefTRIAXone 1 GM Vial IVPUSH SCH (17:30)
[2019-10-21] MEDS ORDERED: Enoxaparin 30 MG/0.3 ML Syringe SUBCUT SCH (17:30)
[2019-10-21 17:48] LABS: CHLORIDE,CL 103 mEq/L (98-106); SODIUM,NA 136 mEq/L (136-145)
[2019-10-21] MEDS ORDERED: Nitroglycerin Lingual Spray 4.9 GM Canister TRLING PRN (17:53)
[2019-10-21] MEDS: Acetaminophen 325 MG Tab PO PRN (18:37)
[2019-10-21] MEDS: Sodium Chloride 0.9% 1,000 ML IV SCH (18:37)
[2019-10-21] MEDS: Gabapentin 300 MG Cap PO SCH (19:40)
[2019-10-21] MEDS: Sertraline 25 MG Tab PO SCH (19:40)
[2019-10-21] MEDS: Clopidogrel 75 MG Tab PO SCH (19:40)
[2019-10-21] MEDS: traMADol 50 MG Tab PO PRN (19:49)
[2019-10-21] MEDS ORDERED: Aluminum Hydroxide/Magnesium Hydroxide/Simethicone Susp 30 ML Cup ONE (19:55)
[2019-10-21] MEDS: SIMETH PO PRN ×3 (20:15)
[2019-10-21] MEDS: ALUM HYDROX PO PRN ×3 (20:15)
[2019-10-21] MEDS: DIPHENHYDRAMINE PO PRN ×3 (20:15)
[2019-10-21] MEDS: MAG HYDROX PO PRN ×3 (20:15)
[2019-10-21] MEDS: LIDOCAINE 2% PO PRN ×3 (20:15)
[2019-10-21] MEDS ORDERED: diphenhydrAMINE 12.5 MG/5 ML Liquid 5 ML UD Cup ONE (20:22)
[2019-10-21] MEDS ORDERED: Lidocaine 2% Viscous Solution 15 ML Cup ONE (20:22)
[2019-10-22] MEDS: SIMETH PO PRN ×6 (01:21→09:16)
[2019-10-22] MEDS: LIDOCAINE 2% PO PRN ×6 (01:21→09:16)
[2019-10-22] MEDS: DIPHENHYDRAMINE PO PRN ×6 (01:21→09:16)
[2019-10-22] MEDS: ALUM HYDROX PO PRN ×6 (01:21→09:16)
[2019-10-22] MEDS: MAG HYDROX PO PRN ×6 (01:21→09:16)
[2019-10-22] MEDS ORDERED: Aluminum Hydroxide/Magnesium Hydroxide/Simethicone Susp 30 ML Cup ONE (01:28)
[2019-10-22] MEDS ORDERED: Lidocaine 2% Viscous Solution 15 ML Cup ONE (01:28)
[2019-10-22] MEDS ORDERED: diphenhydrAMINE 12.5 MG/5 ML Liquid 5 ML UD Cup ONE (01:28)
[2019-10-22] MEDS: Sodium Chloride 0.9% 1,000 ML IV SCH ×2 (02:16→13:13)
[2019-10-22 07:36] LABS: CHLORIDE,CL 107 mEq/L (98-106); SODIUM,NA 138 mEq/L (136-145)
[2019-10-22] MEDS ORDERED: ETOPOSIDE PO SCH (08:00)
[2019-10-22] MEDS: Gabapentin 300 MG Cap PO SCH ×3 (08:12→19:40)
[2019-10-22] MEDS ORDERED: Enoxaparin 40 MG/0.4 ML Syringe SUBCUT SCH (09:00)
[2019-10-22] MEDS ORDERED: cefTRIAXone 1 GM Vial IVPUSH SCH (09:00)
--- NOTE | 2019-10-22 09:09 | PCM.PN ---
- General Info Date of Service: 10/22/19 Admission Dx/Problem (Free Text): Weakness Anemia UTI Functional Status: Reports: Pain Controlled. Denies: Tolerating Diet, Ambulating - Review of Systems General: Reports: Weakness, Fatigue, Malaise HEENT: Reports: Dysphasia, Other (mouth sores). Denies: Sinus Congestion, Rhinitis Pulmonary: Denies: Shortness of Breath, Cough Cardiovascular: Denies: Chest Pain Gastrointestinal: Reports: Abdominal Pain. Denies: Nausea, Vomiting Genitourinary: Reports: No Symptoms Musculoskeletal: Reports: Back Pain Neurological: Reports: Weakness - Patient Data Vitals - Most Recent: Last Vital Signs Temp 98.9 F 10/22/19 07:33 Pulse 70 10/22/19 07:33 Resp 16 10/22/19 07:33 BP 132/64 10/22/19 07:33 Pulse Ox 97 10/22/19 07:33 Weight - Most Recent: 147 lb 8 oz I&O - Last 24 Hours: Intake & Output 10/21/19 10/22/19 10/22/19 22:59 06:59 14:59 Intake Total 956 Balance 956 Lab Results Last 24 Hours: Laboratory Results - last 24 hr 10/21/19 10/21/19 10/21/19 Range/Units 17:26 17:26 17:26 WBC 0.9 L* (5.0-10.0) 10^3/uL RBC 2.46 L (4.00-5.50) 10^6/uL Hgb 8.6 L (12.0-16.0) g/dL Hct 26.2 L (37.0-47.0) % MCV 106.5 H (82.0-94.0) fL MCH 35.0 H (27.0-32.0) pg MCHC 32.8 L (33.0-38.0) g/dL RDW Coeff of Levon 13.0 (11.0-15.0) % Plt Count 68 L (150-400) 10^3/uL Neut % (Auto) 48.8 (35-85) % Lymph % (Auto) 46.5 (10-55) % [place] % (Auto) 1.2 (0-16) % Eos % (Auto) 2.3 (0-5) % Baso % (Auto) 1.2 (0-3) % Neut # (Auto) 0.42 L (1.80-7.00) 10^3/uL Lymph # (Auto) 0.40 L (1.00-4.80) 10^3/uL [place] # (Auto) 0.01 (0.00-0.80) 10^3/uL Eos # (Auto) 0.02 (0.00-0.45) 10^3/uL Baso # (Auto) 0.01 10^3/uL Sodium 136 (136-145) mEq/L Potassium 3.7 (3.5-5.0) mEq/L Chloride 103 (98-106) mEq/L Carbon Dioxide 23 (21-32) mmol/L BUN 17 (7-18) mg/dL Creatinine 0.8 (0.6-1.0) mg/dL Est Cr Clr Drug Dosing TNP Estimated GFR (MDRD) > 60 (>=60) mL/min Glucose 100 H (75-99) mg/dL Lactic Acid 1.2 (0.4-2.0) mmol/L Calcium 8.7 (8.4-10.1) mg/dL Total Bilirubin 0.4 (0.0-1.0) mg/dL AST 10 L (15-37) U/L ALT 20 (12-78) U/L Alkaline Phosphatase 63 (46-116) U/L C-Reactive Protein 7.3 H (0.2-0.8) mg/dL Total Protein 6.2 L (6.4-8.2) g/dL Albumin 3.1 L (3.4-5.0) g/dL 10/22/19 10/22/19 Range/Units 07:01 07:01 WBC 0.8 L* (5.0-10.0) 10^3/uL RBC 2.22 L (4.00-5.50) 10^6/uL Hgb 7.8 L* (12.0-16.0) g/dL Hct 23.6 L (37.0-47.0) % MCV 106.3 H (82.0-94.0) fL MCH 35.1 H (27.0-32.0) pg MCHC 33.1 (33.0-38.0) g/dL RDW Coeff of Levon 12.8 (11.0-15.0) % Plt Count 61 L (150-400) 10^3/uL Neut % (Auto) 33.3 L (35-85) % Lymph % (Auto) 62.8 H (10-55) % [place] % (Auto) 1.3 (0-16) % Eos % (Auto) 2.6 (0-5) % Baso % (Auto) 0 (0-3) % Neut # (Auto) 0.26 L (1.80-7.00) 10^3/uL Lymph # (Auto) 0.49 L (1.00-4.80) 10^3/uL [place] # (Auto) 0.01 (0.00-0.80) 10^3/uL Eos # (Auto) 0.02 (0.00-0.45) 10^3/uL Baso # (Auto) 0.00 10^3/uL Sodium 138 (136-145) mEq/L Potassium 3.6 (3.5-5.0) mEq/L Chloride 107 H (98-106) mEq/L Carbon Dioxide 21 (21-32) mmol/L BUN 14 (7-18) mg/dL Creatinine 0.7 (0.6-1.0) mg/dL Est Cr Clr Drug Dosing 63.37 Estimated GFR (MDRD) > 60 (>=60) mL/min Glucose 85 (75-99) mg/dL Lactic Acid (0.4-2.0) mmol/L Calcium 7.8 L (8.4-10.1) mg/dL Total Bilirubin (0.0-1.0) mg/dL AST (15-37) U/L ALT (12-78) U/L Alkaline Phosphatase (46-116) U/L C-Reactive Protein 8.4 H (0.2-0.8) mg/dL Total Protein (6.4-8.2) g/dL Albumin (3.4-5.0) g/dL Med Orders - Current: Current Medications Acetaminophen (Tylenol) 650 mg PO Q4H PRN PRN Reason: Pain (Mild 1-3)/fever Last Admin: 10/21/19 18:37 Dose: 650 mg Ceftriaxone Sodium (Rocephin) 1 gm IVPUSH Q24H [facility] Last Admin: 10/22/19 08:12 Dose: 1 gm Clopidogrel Bisulfate (Plavix) 75 mg PO BEDTIME [facility] Last Admin: 10/21/19 19:40 Dose: 75 mg Al Hydroxide/Mg Hydroxide 5 ml / Diphenhydramine HCl 12.5 mg/Lidocaine HCl 5 ml 0 ml PO QID [facility] Enoxaparin Sodium (Lovenox) 40 mg SUBCUT Q24H [facility] Gabapentin (Neurontin) 300 mg PO TID [facility] Last Admin: 10/22/19 08:12 Dose: 300 mg Sodium Chloride (Normal Saline) 1,000 mls @ 50 mls/hr IV ASDIRECTED [facility] Last Admin: 10/22/19 02:16 Dose: 125 mls/hr Nitroglycerin (Nitrolingual) 0.4 gm TRLING ASDIRECTED PRN PRN Reason: Chest Pain Ondansetron HCl (Zofran) 8 mg IV Q6H PRN PRN Reason: Nausea/Vomiting Sertraline HCl (Zoloft) 25 mg PO BEDTIME [facility] Last Admin: 10/21/19 19:40 Dose: 25 mg Tramadol HCl (Ultram) 50 mg PO Q6H PRN PRN Reason: Pain Last Admin: 10/21/19 19:49 Dose: 50 mg Valacyclovir HCl (Valtrex) 500 mg PO TID [facility] Discontinued Medications Al Hydroxide/Mg Hydroxide (Mag-Al Plus) Confirm Administered Dose 30 ml .ROUTE .STK-MED ONE Stop: 10/21/19 19:56 Last Admin: 10/21/19 20:17 Dose: Not Given Al Hydroxide/Mg Hydroxide (Mag-Al Plus) Confirm Administered Dose 30 ml .ROUTE .STK-MED ONE Stop: 10/22/19 01:29 Last Admin: 10/22/19 01:24 Dose: Not Given Ceftriaxone Sodium (Rocephin) 1 gm IVPUSH Q24H [facility] Last Admin: 10/21/19 18:18 Dose: Not Given Al Hydroxide/Mg Hydroxide 5 ml / Diphenhydramine HCl 12.5 mg/Lidocaine HCl 5 ml 0 ml PO ASDIRECTED PRN PRN Reason: Sore Throat Last Admin: 10/22/19 01:21 Dose: 30 bottle Diphenhydramine HCl (Benadryl) Confirm Administered Dose 12.5 mg .ROUTE .STK- MED ONE Stop: 10/21/19 20:23 Last Admin: 10/21/19 20:17 Dose: Not Given Diphenhydramine HCl (Benadryl) Confirm Administered Dose 12.5 mg .ROUTE .STK- MED ONE Stop: 10/22/19 01:29 Last Admin: 10/22/19 01:23 Dose: Not Given Enoxaparin Sodium (Lovenox) 30 mg SUBCUT Q24H [facility] Last Admin: 10/21/19 18:18 Dose: Not Given Lidocaine HCl (Xylocaine 2% Viscous) Confirm Administered Dose 15 ml .ROUTE .STK -MED ONE Stop: 10/21/19 20:23 Last Admin: 10/21/19 20:18 Dose: Not Given Lidocaine HCl (Xylocaine 2% Viscous) Confirm Administered Dose 15 ml .ROUTE .STK -MED ONE Stop: 10/22/19 01:29 Last Admin: 10/22/19 01:24 Dose: Not Given Non-Formulary Medication (Etoposide) 93 mg PO DAILY [facility] - Exam General: Alert, Oriented HEENT: Other (mouth sores to lower lip) Neck: Supple Lungs: Clear to Auscultation, Normal Respiratory Effort Cardiovascular: Regular Rate, Regular Rhythm GI/Abdominal Exam: Normal Bowel Sounds, Soft, Tender (diffusely tender throughout) Extremities: Normal Inspection, No Pedal Edema Skin: Warm, Dry Neurological: No New Focal Deficit Sepsis Event Note - Evaluation Sepsis Screening Result: No Definite Risk - Focused Exam Vital Signs: Vital Signs Temp Temp Pulse Resp BP BP Pulse Ox 10/22/19 07:33 98.9 F 70 16 132/64 97 10/22/19 04:00 97.7 F 72 16 155/74 H 98 10/21/19 23:45 97.4 F 86 16 171/81 H 97 Date Exam was Performed: 10/22/19 Time Exam was Performed: 19:42 - Problem List & Annotations (1) Abdominal pain SNOMED Code(s): 38107878 Code(s): R10.9 - UNSPECIFIED ABDOMINAL PAIN Status: Acute Priority: High Current Visit: Yes Qualifiers: Abdominal location: generalized Qualified Code(s): R10.84 - Generalized abdominal pain (2) C. difficile diarrhea SNOMED Code(s): 9237671786835 Code(s): A04.72 - ENTEROCOLITIS D/T CLOSTRIDIUM DIFFICILE, NOT SPCF RECUR Status: Acute Priority: High Current Visit: Yes (3) Palliative care status SNOMED Code(s): 936505652 Code(s): Z51.5 - ENCOUNTER FOR PALLIATIVE CARE Status: Acute Priority: High Current Visit: Yes (4) Weakness SNOMED Code(s): 24111404 Code(s): R53.1 - WEAKNESS Status: Acute Priority: High Current Visit: Yes - Problem List Review Problem List Initiated/Reviewed/Updated: Yes - My Orders Last 24 Hours: My Active Orders 10/22/19 08:19 C DIFFICILE BY DNA [RM] Routine 10/22/19 08:21 Isolation [COMM] Stat 10/22/19 08:42 CANCER ANTIGEN (CA) 125 [REF] Routine 10/22/19 08:59 PACKED CELLS [RED BLOOD CELLS LP] [BBK] Routine TYPE AND SCREEN [BBK] Routine Transfuse Red Blood Cells [COMM] Routine 10/22/19 09:00 Verify Patient Consent Obtain [RC] ASDIRECTED 10/22/19 09:01 OCCULT BLOOD SCREEN [OP] Routine 10/22/19 09:04 Consult to Physical Therapy [PT Evaluation and Treatment] [CONS] Routine 10/22/19 12:00 Alum Hydrox/Mag Hydrox/Simeth [Mag-Al Plus] 5 ml diphenhydrAMINE [Benadryl] 12.5 mg Lidocaine 2% [Xylocaine 2% Viscous] 5 ml PO QID 10/22/19 14:00 valACYclovir [Valtrex] 500 mg PO TID - Assessment Assessment:: Abdominal Pain C-Diff Diarrhea Palliative Care Weakness - Plan Plan:: Patient continues to feel weak. Has mild diffuse abdominal pain. Decreased appetite but states difficult to eat due to mouth sores. Have initiated Magic Mouthwash to help with the discomfort. Patient voicing inability to tolerate chemo pill as causing nausea and mouth sores, wanting to stop. Was currently on 1/2 dose IV chemo infusions but her CA125 was over 400 so did not feel was effective and started on oral chemo med. Has taken for 3 weeks. Family aware of patient's decision to want to quit med and do follow up CA-125 to determine if has been effective at all. Did have UA on the 7th but due to onset of diarrhea and c-diff infection, will repeat UA and decide if needs further antibiotics for that. Labs continue to show low WBC, hemoglobin down to 7.8 today. Creatinine is normal. Will start Valtrex for viral coverage for mouth sores. Transfuse 2 units of PRBC today. Repeat UA. Start Flagyl for c diff. Hold chemo med. Repeat labs in am. Decrease fluids to 50 ml/hr.
[2019-10-22] MEDS ORDERED: Menthol/Zinc Oxide Ointment 113 GM Tube TOP PRN (09:12)
[2019-10-22] MEDS: valACYclovir 500 MG Tab PO SCH ×3 (10:06→19:40)
[2019-10-22] MEDS: metroNIDAZOLE/Normal Saline 500 MG in Premix Bag 1 BAG IV SCH ×2 (12:10→19:34)
[2019-10-22] MEDS: MAG HYDROX PO SCH ×12 (12:10→19:40)
[2019-10-22] MEDS: LIDOCAINE 2% PO SCH ×12 (12:10→19:40)
[2019-10-22] MEDS: DIPHENHYDRAMINE PO SCH ×12 (12:10→19:40)
[2019-10-22] MEDS: ALUM HYDROX PO SCH ×12 (12:10→19:40)
[2019-10-22] MEDS: SIMETH PO SCH ×12 (12:10→19:40)
[2019-10-22] MEDS ORDERED: MAG HYDROX PO SCH ×3 (15:22)
[2019-10-22] MEDS ORDERED: ALUM HYDROX PO SCH ×3 (15:22)
[2019-10-22] MEDS ORDERED: DIPHENHYDRAMINE PO SCH ×3 (15:22)
[2019-10-22] MEDS ORDERED: LIDOCAINE 2% PO SCH ×3 (15:22)
[2019-10-22] MEDS ORDERED: SIMETH PO SCH ×3 (15:22)
[2019-10-22] MEDS: Acetaminophen 325 MG Tab PO PRN (16:54)
[2019-10-22] MEDS ORDERED: FLU Vacc QS2019-20(6MOS UP)/PF 60 MCG/0.5 ML Vial IM ONE (18:05)
[2019-10-22] MEDS ORDERED: FLU Vacc QS2019-20(6MOS+)/PF 60 MCG/0.5 ML SYRINGE ONE (18:24)
[2019-10-22] MEDS: Sertraline 25 MG Tab PO SCH (19:40)
[2019-10-22] MEDS: Clopidogrel 75 MG Tab PO SCH (19:40)
[2019-10-23] MEDS: metroNIDAZOLE/Normal Saline 500 MG in Premix Bag 1 BAG IV SCH ×3 (03:30→20:00)
[2019-10-23] MEDS: traMADol 50 MG Tab PO PRN (04:16)
[2019-10-23] MEDS: valACYclovir 500 MG Tab PO SCH ×3 (07:30→20:01)
[2019-10-23] MEDS: SIMETH PO SCH ×12 (07:30→20:02)
[2019-10-23] MEDS: Enoxaparin 40 MG/0.4 ML Syringe SUBCUT SCH (07:30)
[2019-10-23] MEDS: LIDOCAINE 2% PO SCH ×12 (07:30→20:02)
[2019-10-23] MEDS: ALUM HYDROX PO SCH ×12 (07:30→20:02)
[2019-10-23] MEDS: Gabapentin 300 MG Cap PO SCH ×3 (07:30→20:01)
[2019-10-23] MEDS: MAG HYDROX PO SCH ×12 (07:30→20:02)
[2019-10-23] MEDS: DIPHENHYDRAMINE PO SCH ×12 (07:30→20:02)
[2019-10-23] MEDS: cefTRIAXone 1 GM Vial IVPUSH SCH (07:30)
[2019-10-23 07:43] LABS: CHLORIDE,CL 106 mEq/L (98-106); SODIUM,NA 137 mEq/L (136-145)
--- NOTE | 2019-10-23 09:10 | PCM.PN ---
- General Info Date of Service: 10/23/19 Admission Dx/Problem (Free Text): Weakness Anemia UTI Functional Status: Reports: Pain Controlled. Denies: Tolerating Diet, Ambulating - Review of Systems General: Reports: Weakness, Fatigue, Malaise. Denies: Fever HEENT: Reports: Other (mouth sores) Pulmonary: Denies: Shortness of Breath Cardiovascular: Denies: Chest Pain, Lightheadedness Gastrointestinal: Reports: Abdominal Pain, Diarrhea. Denies: Nausea, Vomiting Genitourinary: Reports: No Symptoms Musculoskeletal: Reports: No Symptoms Skin: Reports: No Symptoms Neurological: Reports: Weakness - Patient Data Vitals - Most Recent: Last Vital Signs Temp 97.8 F 10/23/19 08:00 Pulse 67 10/23/19 08:00 Resp 18 10/23/19 08:00 BP 150/73 H 10/23/19 08:00 Pulse Ox 97 10/23/19 08:00 Weight - Most Recent: 147 lb 8 oz I&O - Last 24 Hours: Intake & Output 10/22/19 10/23/19 10/23/19 22:59 06:59 14:59 Intake Total 449 Balance 449 Lab Results Last 24 Hours: Laboratory Results - last 24 hr 10/22/19 10/22/19 10/23/19 Range/Units 08:59 13:20 05:11 WBC 0.6 L* (5.0-10.0) 10^3/uL RBC 3.33 L (4.00-5.50) 10^6/uL Hgb 11.0 L (12.0-16.0) g/dL Hct 32.9 L (37.0-47.0) % MCV 98.8 H (82.0-94.0) fL MCH 33.0 H (27.0-32.0) pg MCHC 33.4 (33.0-38.0) g/dL RDW Coeff of Levon 15.0 (11.0-15.0) % Plt Count 52 L (150-400) 10^3/uL Neut % (Auto) 35.7 (35-85) % Lymph % (Auto) 60.7 H (10-55) % [place] % (Auto) 1.8 (0-16) % Eos % (Auto) 1.8 (0-5) % Baso % (Auto) 0 (0-3) % Neut # (Auto) 0.20 L (1.80-7.00) 10^3/uL Lymph # (Auto) 0.34 L (1.00-4.80) 10^3/uL [place] # (Auto) 0.01 (0.00-0.80) 10^3/uL Eos # (Auto) 0.01 (0.00-0.45) 10^3/uL Baso # (Auto) 0.00 10^3/uL Sodium (136-145) mEq/L Potassium (3.5-5.0) mEq/L Chloride (98-106) mEq/L Carbon Dioxide (21-32) mmol/L BUN (7-18) mg/dL Creatinine (0.6-1.0) mg/dL Est Cr Clr Drug Dosing mL/min Estimated GFR (MDRD) (>=60) mL/min Glucose (75-99) mg/dL Calcium (8.4-10.1) mg/dL C-Reactive Protein (0.2-0.8) mg/dL Urine Color Yellow (YELLOW) Urine Appearance Cloudy (CLEAR) Urine pH 6.0 (4.5-8.0) Ur Specific [place] 1.025 H (1.003-1.020) Urine Protein 30 H (NEGATIVE) mg/dL Urine Glucose (UA) Negative (NEGATIVE) mg/dL Urine Ketones Negative (NEGATIVE) mg/dL Urine Occult Blood Moderate H (NEGATIVE) Urine Nitrite Negative (NEGATIVE) Urine Bilirubin Negative (NEGATIVE) Urine Urobilinogen 0.2 (0.2-1.0) EU/dL Ur Leukocyte Esterase Small H (NEGATIVE) Urine RBC 0-5 (0-5) /HPF Urine WBC 5-10 H (0-5) /HPF Ur Squamous Epith Cells Occasional H (NOT SEEN) /HPF Amorphous Sediment Few H (NOT SEEN) /HPF Urine Bacteria Many H (NOT SEEN) /HPF Urinalysis Comment Blood Type B POSITIVE Gel Antibody Screen Negative Crossmatch See Detail 10/23/19 Range/Units 05:11 WBC (5.0-10.0) 10^3/uL RBC (4.00-5.50) 10^6/uL Hgb (12.0-16.0) g/dL Hct (37.0-47.0) % MCV (82.0-94.0) fL MCH (27.0-32.0) pg MCHC (33.0-38.0) g/dL RDW Coeff of [place] (11.0-15.0) % Plt Count (150-400) 10^3/uL Neut % (Auto) (35-85) % Lymph % (Auto) (10-55) % [place] % (Auto) (0-16) % Eos % (Auto) (0-5) % Baso % (Auto) (0-3) % Neut # (Auto) (1.80-7.00) 10^3/uL Lymph # (Auto) (1.00-4.80) 10^3/uL [place] # (Auto) (0.00-0.80) 10^3/uL Eos # (Auto) (0.00-0.45) 10^3/uL Baso # (Auto) 10^3/uL Sodium 137 (136-145) mEq/L Potassium 3.2 L (3.5-5.0) mEq/L Chloride 106 (98-106) mEq/L Carbon Dioxide 22 (21-32) mmol/L BUN 10 (7-18) mg/dL Creatinine 0.7 (0.6-1.0) mg/dL Est Cr Clr Drug Dosing 63.37 mL/min Estimated GFR (MDRD) > 60 (>=60) mL/min Glucose 95 (75-99) mg/dL Calcium 7.9 L (8.4-10.1) mg/dL C-Reactive Protein 13.1 H (0.2-0.8) mg/dL Urine Color (YELLOW) Urine Appearance (CLEAR) Urine pH (4.5-8.0) Ur Specific [place] (1.003-1.020) Urine Protein (NEGATIVE) mg/dL Urine Glucose (UA) (NEGATIVE) mg/dL Urine Ketones (NEGATIVE) mg/dL Urine Occult Blood (NEGATIVE) Urine Nitrite (NEGATIVE) Urine Bilirubin (NEGATIVE) Urine Urobilinogen (0.2-1.0) EU/dL Ur Leukocyte Esterase (NEGATIVE) Urine RBC (0-5) /HPF Urine WBC (0-5) /HPF Ur Squamous Epith Cells (NOT SEEN) /HPF Amorphous Sediment (NOT SEEN) /HPF Urine Bacteria (NOT SEEN) /HPF Urinalysis Comment Blood Type Gel Antibody Screen Crossmatch Apolinar Results Last 24 Hours: Microbiology 10/22/19 23:30 Occult Blood - Preliminary Stool / Feces 10/21/19 23:50 C. difficile DNA Amplification - Final Stool / Feces Positive C. Diff Dna 10/21/19 23:50 Stool for WBCs - Final Stool / Feces NO WBC SEEN REFERENCE RANGE: NO WBC SEEN 10/22/19 09:14 Influenza Type A Antigen Screen - Final Nasopharyngeal Swab NEGATIVE INFLUENZA A VIRUS AG REFERENCE RANGE: NEGATIVE Influenza Type B Antigen Screen - Final NEGATIVE INFLUENZA B VIRUS AG REFERENCE RANGE: NEGATIVE Med Orders - Current: Current Medications Acetaminophen (Tylenol) 650 mg PO Q4H PRN PRN Reason: Pain (Mild 1-3)/fever Last Admin: 10/22/19 16:54 Dose: 650 mg Calamine/Phenol (Calmoseptine) 0 gm TOP QID PRN PRN Reason: Other Last Admin: 10/22/19 10:04 Dose: 1 applic Ceftriaxone Sodium (Rocephin) 1 gm IVPUSH Q24H [facility] Last Admin: 10/23/19 07:30 Dose: 1 gm Clopidogrel Bisulfate (Plavix) 75 mg PO BEDTIME [facility] Last Admin: 10/22/19 19:40 Dose: 75 mg Al Hydroxide/Mg Hydroxide 5 ml / Diphenhydramine HCl 12.5 mg/Lidocaine HCl 5 ml 0 ml PO QID [facility] Last Admin: 10/23/19 07:30 Dose: 5 ml Enoxaparin Sodium (Lovenox) 40 mg SUBCUT Q24H [facility] Last Admin: 10/23/19 07:30 Dose: 40 mg Gabapentin (Neurontin) 300 mg PO TID [facility] Last Admin: 10/23/19 07:30 Dose: 300 mg Metronidazole 500 mg/ Premix 100 mls @ 100 mls/hr IV Q8H [facility] Last Admin: 10/23/19 03:30 Dose: 100 mls/hr Nitroglycerin (Nitrolingual) 0.4 gm TRLING ASDIRECTED PRN PRN Reason: Chest Pain Ondansetron HCl (Zofran) 8 mg IV Q6H PRN PRN Reason: Nausea/Vomiting Sertraline HCl (Zoloft) 25 mg PO BEDTIME [facility] Last Admin: 10/22/19 19:40 Dose: 25 mg Tramadol HCl (Ultram) 50 mg PO Q6H PRN PRN Reason: Pain Last Admin: 10/23/19 04:16 Dose: 50 mg Valacyclovir HCl (Valtrex) 500 mg PO TID [facility] Last Admin: 10/23/19 07:30 Dose: 500 mg Discontinued Medications Al Hydroxide/Mg Hydroxide (Mag-Al Plus) Confirm Administered Dose 30 ml .ROUTE .STK-MED ONE Stop: 10/21/19 19:56 Last Admin: 10/21/19 20:17 Dose: Not Given Al Hydroxide/Mg Hydroxide (Mag-Al Plus) Confirm Administered Dose 30 ml .ROUTE .STK-MED ONE Stop: 10/22/19 01:29 Last Admin: 10/22/19 01:24 Dose: Not Given Ceftriaxone Sodium (Rocephin) 1 gm IVPUSH Q24H [facility] Last Admin: 10/21/19 18:18 Dose: Not Given Ceftriaxone Sodium (Rocephin) 1 gm IVPUSH Q24H [facility] Last Admin: 10/22/19 08:12 Dose: 1 gm Al Hydroxide/Mg Hydroxide 5 ml / Diphenhydramine HCl 12.5 mg/Lidocaine HCl 5 ml 0 ml PO ASDIRECTED PRN PRN Reason: Sore Throat Last Admin: 10/22/19 09:16 Dose: 15 bottle Al Hydroxide/Mg Hydroxide 5 ml / Diphenhydramine HCl 12.5 mg/Lidocaine HCl 5 ml 0 ml PO QID [facility] Last Admin: 10/22/19 16:55 Dose: 5 ml Al Hydroxide/Mg Hydroxide 5 ml / Diphenhydramine HCl 12.5 mg/Lidocaine HCl 5 ml 0 ml PO QID [facility] Diphenhydramine HCl (Benadryl) Confirm Administered Dose 12.5 mg .ROUTE .STK- MED ONE Stop: 10/21/19 20:23 Last Admin: 10/21/19 20:17 Dose: Not Given Diphenhydramine HCl (Benadryl) Confirm Administered Dose 12.5 mg .ROUTE .STK- MED ONE Stop: 10/22/19 01:29 Last Admin: 10/22/19 01:23 Dose: Not Given Enoxaparin Sodium (Lovenox) 30 mg SUBCUT Q24H [facility] Last Admin: 10/21/19 18:18 Dose: Not Given Enoxaparin Sodium (Lovenox) 40 mg SUBCUT Q24H [facility] Last Admin: 10/22/19 10:06 Dose: 40 mg Sodium Chloride (Normal Saline) 1,000 mls @ 50 mls/hr IV ASDIRECTED [facility] Last Admin: 10/22/19 13:13 Dose: 50 mls/hr Influenza Virus Vaccine (Fluzone Quad [id number] Syringe) Confirm Administered Dose 60 mcg .ROUTE .STK-MED ONE Stop: 10/22/19 18:25 Last Admin: 10/22/19 18:22 Dose: Not Given Lidocaine HCl (Xylocaine 2% Viscous) Confirm Administered Dose 15 ml .ROUTE .STK -MED ONE Stop: 10/21/19 20:23 Last Admin: 10/21/19 20:18 Dose: Not Given Lidocaine HCl (Xylocaine 2% Viscous) Confirm Administered Dose 15 ml .ROUTE .STK -MED ONE Stop: 10/22/19 01:29 Last Admin: 10/22/19 01:24 Dose: Not Given Non-Formulary Medication (Etoposide) 93 mg PO DAILY [facility] Last Admin: 10/22/19 09:00 Dose: Not Given - Exam General: Alert, Oriented HEENT: Mucous Membr. Moist/[place] Neck: Supple Lungs: Clear to Auscultation, Normal Respiratory Effort Cardiovascular: Regular Rate, Regular Rhythm GI/Abdominal Exam: Normal Bowel Sounds, Soft, Tender Extremities: Normal Inspection, No Pedal Edema Skin: Warm, Dry Neurological: No New Focal Deficit Sepsis Event Note - Evaluation Sepsis Screening Result: No Definite Risk - Focused Exam Vital Signs: Vital Signs Temp Temp Pulse Resp BP Pulse Ox 10/23/19 08:00 97.8 F 67 18 150/73 H 97 10/23/19 04:00 98.1 F 71 16 141/64 H 95 10/22/19 23:45 97.7 F 67 16 158/72 H 96 Date Exam was Performed: 10/23/19 Time Exam was Performed: 09:05 - Problem List & Annotations (1) Abdominal pain SNOMED Code(s): 51507914 Code(s): R10.9 - UNSPECIFIED ABDOMINAL PAIN Status: Acute Priority: High Current Visit: Yes Qualifiers: Abdominal location: generalized Qualified Code(s): R10.84 - Generalized abdominal pain (2) C. difficile diarrhea SNOMED Code(s): 8474927360243 Code(s): A04.72 - ENTEROCOLITIS D/T CLOSTRIDIUM DIFFICILE, NOT SPCF RECUR Status: Acute Priority: High Current Visit: Yes (3) Palliative care status SNOMED Code(s): 360798495 Code(s): Z51.5 - ENCOUNTER FOR PALLIATIVE CARE Status: Acute Priority: High Current Visit: Yes (4) Weakness SNOMED Code(s): 90943484 Code(s): R53.1 - WEAKNESS Status: Acute Priority: High Current Visit: Yes - Problem List Review Problem List Initiated/Reviewed/Updated: Yes - My Orders Last 24 Hours: My Active Orders 10/22/19 08:21 Isolation [COMM] Stat 10/22/19 08:59 Transfuse Red Blood Cells [COMM] Routine 10/22/19 09:00 Verify Patient Consent Obtain [RC] ASDIRECTED 10/22/19 09:04 Consult to Physical Therapy [PT Evaluation and Treatment] [CONS] Routine 10/22/19 09:30 valACYclovir [Valtrex] 500 mg PO TID 10/22/19 11:30 metroNIDAZOLE/Normal Saline [Flagyl 500 MG in NS 100 ML] 500 mg Premix Bag 1 bag IV Q8H 10/22/19 13:20 CULTURE URINE [RM] Routine 10/22/19 16:00 Alum Hydrox/Mag Hydrox/Simeth [Mag-Al Plus] 5 ml diphenhydrAMINE [Benadryl] 12.5 mg Lidocaine 2% [Xylocaine 2% Viscous] 5 ml PO QID 10/22/19 23:30 OCCULT BLOOD SCREEN [OP] Routine 10/23/19 09:15 NS + KCl 20mEq/L [Normal Saline with 20 mEq KCl] 1,000 ml IV ASDIRECTED - Assessment Assessment:: Abdominal Pain C-Diff Diarrhea Palliative Care Weakness - Plan Plan:: Patient continues to feel weak. Has mild diffuse abdominal pain. Decreased appetite but states difficult to eat due to mouth sores. Have initiated Magic Mouthwash to help with the discomfort. Patient voicing inability to tolerate chemo pill as causing nausea and mouth sores, wanting to stop. Was currently on 1/2 dose IV chemo infusions but her CA125 was over 400 so did not feel was effective and started on oral chemo med. Has taken for 3 weeks. Family aware of patient's decision to want to quit med and do follow up CA-125 to determine if has been effective at all. Did have UA on the but due to onset of diarrhea and c-diff infection, will repeat UA and decide if needs further antibiotics for that. Labs continue to show low WBC, hemoglobin down to 7.8 today. Creatinine is normal. Will start Valtrex for viral coverage for mouth sores. Transfuse 2 units of PRBC today. Repeat UA. Start Flagyl for c diff. Hold chemo med. Repeat labs in am. Decrease fluids to 50 ml/hr. 10-23-2019 Patient continues to feel weak. Still not eating well, unable to tolerate due to mouth sores. Does admit that the magic mouthwash does help. Vital signs are stable. Abdomen is soft, mildly tender throughout. UA done yesterday showed many bacteria, awaiting culture. C Diff was positive. Was started on Flagyl. Continues to have frequent diarrhea stools. Potassium is down today to 3.2. CRP 13.2. WBC low at 0.6. Hemoglobin up to 11 today Add potassium to IV fluids. Awaiting urine culture for sensitivities, will continue Rocephin at this time. Continue Flagyl. Encouraged ambulation with PT.
[2019-10-23] MEDS: NS + KCl 20mEq/L 1,000 ML IV SCH (09:33)
[2019-10-23] MEDS: Sertraline 25 MG Tab PO SCH (20:01)
[2019-10-23] MEDS: Clopidogrel 75 MG Tab PO SCH (20:01)
[2019-10-24] MEDS: metroNIDAZOLE/Normal Saline 500 MG in Premix Bag 1 BAG IV SCH ×2 (04:04→12:13)
[2019-10-24] MEDS: NS + KCl 20mEq/L 1,000 ML IV SCH (06:55)
[2019-10-24 07:24] LABS: CHLORIDE,CL 107 mEq/L (98-106); SODIUM,NA 139 mEq/L (136-145)
[2019-10-24] MEDS: Enoxaparin 40 MG/0.4 ML Syringe SUBCUT SCH (07:44)
[2019-10-24] MEDS: Gabapentin 300 MG Cap PO SCH (07:45)
[2019-10-24] MEDS: valACYclovir 500 MG Tab PO SCH (07:45)
[2019-10-24] MEDS: ALUM HYDROX PO SCH ×6 (07:46→12:09)
[2019-10-24] MEDS: SIMETH PO SCH ×6 (07:46→12:09)
[2019-10-24] MEDS: cefTRIAXone 1 GM Vial IVPUSH SCH (07:46)
[2019-10-24] MEDS: LIDOCAINE 2% PO SCH ×6 (07:46→12:09)
[2019-10-24] MEDS: DIPHENHYDRAMINE PO SCH ×6 (07:46→12:09)
[2019-10-24] MEDS: MAG HYDROX PO SCH ×6 (07:46→12:09)
[2019-10-24 08:15] VITALS: BP 161/82; PULSE 71
[2019-10-24] MEDS ORDERED: Vancomycin 125 MG Cap PO SCH (12:00)
--- NOTE | 2019-10-24 14:36 | PCM.DCSUM1 ---
Discharge Summary - Hospital Course Free Text/Narrative:: Patient presents to clinic with complaints of dizziness, weakness, ongoing abdominal discomfort. Has persistent diarrhea. 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 Earlier in the week, patient was diagnosed with UTI and due to chronic history of difficulty with oral antibiotics, was placed on IV Rocephin as an outpatient. Presented to see Lamont due to increasing weakness. WBC on admit 0.9 , hemoglobin 8.6. BUN/creatinine are normal. CRP 7.8. Started on IV fluids. Rocephin for UTI. Stool studies ordered. Diagnosis: Stroke: No Modified Francisco Scale: No Symptoms at All Modified Francisco Scale Score: 0 - Discharge Data Discharge Date: 10/24/19 Discharge Disposition: DC/Tfer W/I Hosp To Swing Condition: Fair - Referral to Home Health Primary Care Physician: James Uriarte MD - Discharge Diagnosis/Problem(s) (1) Abdominal pain SNOMED Code(s): 77781943 ICD Code: R10.9 - UNSPECIFIED ABDOMINAL PAIN Status: Acute Priority: High Qualifiers: Abdominal location: generalized Qualified Code(s): R10.84 - Generalized abdominal pain (2) C. difficile diarrhea SNOMED Code(s): 7430910642200 ICD Code: A04.72 - ENTEROCOLITIS D/T CLOSTRIDIUM DIFFICILE, NOT SPCF RECUR Status: Acute Priority: High (3) Palliative care status SNOMED Code(s): 524586219 ICD Code: Z51.5 - ENCOUNTER FOR PALLIATIVE CARE Status: Acute Priority: High (4) Weakness SNOMED Code(s): 20263671 ICD Code: R53.1 - WEAKNESS Status: Acute Priority: High - Patient Summary/Data Complications: none Consults: Consultations 10/22/19 09:04 Consult to Physical Therapy [PT Evaluation and Treatment] [CONS] Routine Hospital Course: Patient continues to feel weak but overall feeling better. Less abdominal cramping. Has had intermittent low grade fevers through stay. Ambulating short distances with walker. Continues to have loose stools, was found to have c diff. Started initially on Flagyl, stools continued. Did repeat UA to determine if unable to stop Rocephin. UA shows many bacteria. Did ultimately add Vancomycin oral. Urine culture received, did show enterococcus and citerobacter, resistant to multiple antibiotics. Does show sensitivities to Macrobid. Patient had remote history of nausea from this but agreed to try again versus taking 2 oral meds to cover this. Mouth sores are slightly better. Have been using magic mouthwash that helps, started on Valtrex for any concern with viral infection. will transfer to swing bed for ongoing IV antibiotics, fluids and physical therapy. - Patient Instructions Diet: Usual Diet as Tolerated Activity: As Tolerated - Discharge Plan *PRESCRIPTION DRUG MONITORING PROGRAM REVIEWED*: No *COPY OF PRESCRIPTION DRUG MONITORING REPORT IN PATIENT KATHY: No Home Medications: Home Meds Aspirin [Halfprin] 81 mg PO DAILY 01/07/16 [History] Nitroglycerin [Nitrolingual] 0.4 gm SL ASDIRECTED PRN 01/07/16 [History] Ubidecarenone [COQ-10] 30 mg PO DAILY 01/07/16 [History] atorvaSTATin Calcium [Atorvastatin Calcium] 40 mg PO BEDTIME 01/07/16 [History] Acetaminophen [Tylenol] 325 mg PO Q4H PRN 07/23/18 [History] Ondansetron [Zofran] 4 - 8 mg PO Q4H PRN 07/23/18 [History] Gabapentin [Neurontin] 300 mg PO TID 10/01/18 [History] Clopidogrel Bisulfate [Clopidogrel] 75 mg PO BEDTIME 11/07/18 [History] Sertraline [Zoloft] 25 mg PO BEDTIME #30 tablet 11/22/18 [Rx] traMADol [Ultram] 50 mg PO Q6HR PRN 09/26/19 [History] Etoposide 93 mg PO DAILY 10/17/19 [History] - Discharge Summary/Plan Comment DC Time >30 min.: No - General Info Date of Service: 10/24/19 Admission Dx/Problem (Free Text: Weakness Anemia UTI Functional Status: Reports: Pain Controlled, Tolerating Diet, Ambulating - Review of Systems General: Reports: Weakness, Fatigue, Malaise HEENT: Reports: Other (mouth sores) Pulmonary: Denies: Shortness of Breath, Cough Cardiovascular: Denies: Chest Pain, Edema, Lightheadedness Gastrointestinal: Reports: Abdominal Pain, Diarrhea. Denies: Nausea, Vomiting Genitourinary: Reports: No Symptoms Musculoskeletal: Reports: No Symptoms Skin: Reports: No Symptoms Neurological: Reports: Weakness - Patient Data Vitals - Most Recent: Last Vital Signs Temp 99.5 F 10/24/19 08:00 Pulse 71 10/24/19 08:00 Resp 20 10/24/19 08:00 BP 161/82 H 10/24/19 08:00 Pulse Ox 97 10/24/19 08:00 Weight - Most Recent: 147 lb 8 oz I&O - Last 24 hours: Intake & Output 10/23/19 10/24/19 10/24/19 22:59 06:59 14:59 Intake Total 100 1100 Balance 100 1100 Lab Results - Last 24 hrs: Laboratory Results - last 24 hr 10/22/19 10/24/19 10/24/19 Range/Units 06:45 06:55 06:55 WBC 0.7 L* (5.0-10.0) 10^3/uL RBC 3.52 L (4.00-5.50) 10^6/uL Hgb 11.5 L (12.0-16.0) g/dL Hct 34.9 L (37.0-47.0) % MCV 99.1 H (82.0-94.0) fL MCH 32.7 H (27.0-32.0) pg MCHC 33.0 (33.0-38.0) g/dL RDW Coeff of Levon 14.9 (11.0-15.0) % Plt Count 58 L (150-400) 10^3/uL Neut % (Auto) 29.2 L (35-85) % Lymph % (Auto) 62.5 H (10-55) % [place] % (Auto) 6.9 (0-16) % Eos % (Auto) 1.4 (0-5) % Baso % (Auto) 0 (0-3) % Neut # (Auto) 0.21 L (1.80-7.00) 10^3/uL Lymph # (Auto) 0.45 L (1.00-4.80) 10^3/uL [place] # (Auto) 0.05 (0.00-0.80) 10^3/uL Eos # (Auto) 0.01 (0.00-0.45) 10^3/uL Baso # (Auto) 0.00 10^3/uL Sodium 139 (136-145) mEq/L Potassium 3.2 L (3.5-5.0) mEq/L Chloride 107 H (98-106) mEq/L Carbon Dioxide 19 L (21-32) mmol/L BUN 9 (7-18) mg/dL Creatinine 0.7 (0.6-1.0) mg/dL Est Cr Clr Drug Dosing 63.37 mL/min Estimated GFR (MDRD) > 60 (>=60) mL/min Glucose 92 (75-99) mg/dL Calcium 8.3 L (8.4-10.1) mg/dL C-Reactive Protein 11.1 H (0.2-0.8) mg/dL CA 125 Antigen 105.0 H (0.0-38.1) U/mL SCOTT Results - Last 24 hrs: Microbiology 10/21/19 23:50 Stool Aerobic Culture - Preliminary Stool / Feces 10/22/19 13:20 Urine Culture - Final Urine, Voided Enterococcus Faecium Citrobacter Braakii 10/22/19 23:30 Occult Blood - Final Stool / Feces Med Orders - Current: Current Medications Discontinued Medications Acetaminophen (Tylenol) 650 mg PO Q4H PRN PRN Reason: Pain (Mild 1-3)/fever Last Admin: 10/22/19 16:54 Dose: 650 mg Al Hydroxide/Mg Hydroxide (Mag-Al Plus) Confirm Administered Dose 30 ml .ROUTE .STK-MED ONE Stop: 10/21/19 19:56 Last Admin: 10/21/19 20:17 Dose: Not Given Al Hydroxide/Mg Hydroxide (Mag-Al Plus) Confirm Administered Dose 30 ml .ROUTE .STK-MED ONE Stop: 10/22/19 01:29 Last Admin: 10/22/19 01:24 Dose: Not Given Calamine/Phenol (Calmoseptine) 0 gm TOP QID PRN PRN Reason: Other Last Admin: 10/22/19 10:04 Dose: 1 applic Ceftriaxone Sodium (Rocephin) 1 gm IVPUSH Q24H [facility] Last Admin: 10/21/19 18:18 Dose: Not Given Ceftriaxone Sodium (Rocephin) 1 gm IVPUSH Q24H [facility] Last Admin: 10/22/19 08:12 Dose: 1 gm Ceftriaxone Sodium (Rocephin) 1 gm IVPUSH Q24H [facility] Last Admin: 10/24/19 07:46 Dose: 1 gm Clopidogrel Bisulfate (Plavix) 75 mg PO BEDTIME [facility] Last Admin: 10/23/19 20:01 Dose: 75 mg Al Hydroxide/Mg Hydroxide 5 ml / Diphenhydramine HCl 12.5 mg/Lidocaine HCl 5 ml 0 ml PO ASDIRECTED PRN PRN Reason: Sore Throat Last Admin: 10/22/19 09:16 Dose: 15 bottle Al Hydroxide/Mg Hydroxide 5 ml / Diphenhydramine HCl 12.5 mg/Lidocaine HCl 5 ml 0 ml PO QID [facility] Last Admin: 10/22/19 16:55 Dose: 5 ml Al Hydroxide/Mg Hydroxide 5 ml / Diphenhydramine HCl 12.5 mg/Lidocaine HCl 5 ml 0 ml PO QID [place]IS[facility] Al Hydroxide/Mg Hydroxide 5 ml / Diphenhydramine HCl 12.5 mg/Lidocaine HCl 5 ml 0 ml PO QID [facility] Last Admin: 10/24/19 12:09 Dose: 5 ml Diphenhydramine HCl (Benadryl) Confirm Administered Dose 12.5 mg .ROUTE .STK- MED ONE Stop: 10/21/19 20:23 Last Admin: 10/21/19 20:17 Dose: Not Given Diphenhydramine HCl (Benadryl) Confirm Administered Dose 12.5 mg .ROUTE .STK- MED ONE Stop: 10/22/19 01:29 Last Admin: 10/22/19 01:23 Dose: Not Given Enoxaparin Sodium (Lovenox) 30 mg SUBCUT Q24H [facility] Last Admin: 10/21/19 18:18 Dose: Not Given Enoxaparin Sodium (Lovenox) 40 mg SUBCUT Q24H [facility] Last Admin: 10/22/19 10:06 Dose: 40 mg Enoxaparin Sodium (Lovenox) 40 mg SUBCUT Q24H [facility] Last Admin: 10/24/19 07:44 Dose: 40 mg Gabapentin (Neurontin) 300 mg PO TID [facility] Last Admin: 10/24/19 07:45 Dose: 300 mg Sodium Chloride (Normal Saline) 1,000 mls @ 50 mls/hr IV ASDIRECTED [facility] Last Admin: 10/22/19 13:13 Dose: 50 mls/hr Metronidazole 500 mg/ Premix 100 mls @ 100 mls/hr IV Q8H [facility] Last Admin: 10/23/19 12:28 Dose: 100 mls/hr Potassium Chloride/Sodium Chloride (Normal Saline With 20 Meq Kcl) 1,000 mls @ 50 mls/hr IV ASDIRECTED [facility] Last Admin: 10/24/19 06:55 Dose: 50 mls/hr Metronidazole 500 mg/ Premix 100 mls @ 100 mls/hr IV TID@0400,1200,2000 [facility] Last Admin: 10/24/19 12:13 Dose: 100 mls/hr Influenza Virus Vaccine (Fluzone Quad 8417-2378 Syringe) Confirm Administered Dose 60 mcg .ROUTE .STK-MED ONE Stop: 10/22/19 18:25 Last Admin: 10/22/19 18:22 Dose: Not Given Lidocaine HCl (Xylocaine 2% Viscous) Confirm Administered Dose 15 ml .ROUTE .STK -MED ONE Stop: 10/21/19 20:23 Last Admin: 10/21/19 20:18 Dose: Not Given Lidocaine HCl (Xylocaine 2% Viscous) Confirm Administered Dose 15 ml .ROUTE .STK -MED ONE Stop: 10/22/19 01:29 Last Admin: 10/22/19 01:24 Dose: Not Given Nitroglycerin (Nitrolingual) 0.4 gm TRLING ASDIRECTED PRN PRN Reason: Chest Pain Non-Formulary Medication (Etoposide) 93 mg PO DAILY [facility] Last Admin: 10/22/19 09:00 Dose: Not Given Ondansetron HCl (Zofran) 8 mg IV Q6H PRN PRN Reason: Nausea/Vomiting Sertraline HCl (Zoloft) 25 mg PO BEDTIME [facility] Last Admin: 10/23/19 20:01 Dose: 25 mg Tramadol HCl (Ultram) 50 mg PO Q6H PRN PRN Reason: Pain Last Admin: 10/23/19 04:16 Dose: 50 mg Valacyclovir HCl (Valtrex) 500 mg PO TID [facility] Last Admin: 10/24/19 07:45 Dose: 500 mg Vancomycin HCl (Vancomycin) 125 mg PO QID [facility] Last Admin: 10/24/19 12:09 Dose: 125 mg - Exam General: Reports: Alert, Oriented HEENT: Reports: Other (redness and sores noted to oral mucosa) Neck: Reports: Supple Lungs: Reports: Clear to Auscultation, Normal Respiratory Effort Cardiovascular: Reports: Regular Rate, Regular Rhythm GI/Abdominal Exam: Normal Bowel Sounds, Soft, Tender Extremities: Normal Inspection, No Pedal Edema Skin: Reports: Warm, Dry Neurological: Reports: No New Focal Deficit
== END 2019-10-24 12:13 | disposition swing bed (61) | DRG 372 ==
LOC: UNDOADMIN 17:15 → CC.MS 17:15
PROVIDERS: ADMIT Physician Assistant Medical; ATTEND Family Medicine
PROC: 30233N1 Transfusion of Nonautologous Red Blood Cells into Peripheral Vein, Percutaneous Approach (ICD-10-PCS; principal; 2019-10-22)
DX: A04.72 Enterocolitis due to Clostridium difficile, not specified as recurrent (principal); N39.0 Urinary tract infection, site not specified; Z16.20 Resistance to unspecified antibiotic; C56.9 Malignant neoplasm of unspecified ovary; Z51.5 Encounter for palliative care; D64.9 Anemia, unspecified; B96.89 Other specified bacterial agents as the cause of diseases classified elsewhere; K13.79 Other lesions of oral mucosa; Z87.440 Personal history of urinary (tract) infections; Z85.3 Personal history of malignant neoplasm of breast; Z79.82 Long term (current) use of aspirin; Z79.899 Other long term (current) drug therapy; Z90.710 Acquired absence of both cervix and uterus
CPT/HCPCS: 36415; 36430; 80048; 80053; 81001; 82270; 83605; 85025; 86140; 86304; 86850; 86900; 86901; 86920; 86922; 87045; 87046; 87086; 87088; 87186; 87493; 87804; 89055; 90471; 90686; 97110-GP; 97161-GP; A9270-GY; J0696; J1650; J3480; J3490; J7030; P9016

== ENCOUNTER 2019-10-24 12:13 | Inpatient (IN) | payer MEDICARE, OTHER ==
[2019-10-24] MEDS ORDERED: Nitroglycerin Lingual Spray 4.9 GM Canister TRLING PRN (12:40)
[2019-10-24] MEDS: valACYclovir 500 MG Tab PO SCH ×2 (13:41→19:53)
[2019-10-24] MEDS: Gabapentin 300 MG Cap PO SCH ×2 (13:41→19:53)
[2019-10-24] MEDS: Vancomycin 125 MG Cap PO SCH ×2 (15:43→19:53)
[2019-10-24] MEDS: SIMETH PO SCH ×6 (15:44→19:54)
[2019-10-24] MEDS: DIPHENHYDRAMINE PO SCH ×6 (15:44→19:54)
[2019-10-24] MEDS: MAG HYDROX PO SCH ×6 (15:44→19:54)
[2019-10-24] MEDS: LIDOCAINE 2% PO SCH ×6 (15:44→19:54)
[2019-10-24] MEDS: ALUM HYDROX PO SCH ×6 (15:44→19:54)
[2019-10-24] MEDS: Ondansetron 4 MG/2 ML SDV IV PRN (17:05)
[2019-10-24] MEDS: Nitrofurantoin Monohydrate/Macrocrystalline 100 MG Cap PO SCH (17:09)
[2019-10-24] MEDS: metroNIDAZOLE/Normal Saline 500 MG in Premix Bag 1 BAG IV SCH (19:52)
[2019-10-24] MEDS: Sertraline 25 MG Tab PO SCH (19:53)
[2019-10-24] MEDS: Clopidogrel 75 MG Tab PO SCH (19:53)
[2019-10-25] MEDS: metroNIDAZOLE/Normal Saline 500 MG in Premix Bag 1 BAG IV SCH ×3 (03:41→19:44)
[2019-10-25] MEDS: NS + KCl 20mEq/L 1,000 ML IV SCH (03:41)
[2019-10-25] MEDS: Enoxaparin 40 MG/0.4 ML Syringe SUBCUT SCH (07:26)
[2019-10-25] MEDS: valACYclovir 500 MG Tab PO SCH ×3 (07:28→19:44)
[2019-10-25] MEDS: Gabapentin 300 MG Cap PO SCH ×3 (07:28→19:44)
[2019-10-25] MEDS: DIPHENHYDRAMINE PO SCH ×12 (07:28→19:44)
[2019-10-25] MEDS: ALUM HYDROX PO SCH ×12 (07:28→19:44)
[2019-10-25] MEDS: MAG HYDROX PO SCH ×12 (07:28→19:44)
[2019-10-25] MEDS: SIMETH PO SCH ×12 (07:28→19:44)
[2019-10-25] MEDS: Vancomycin 125 MG Cap PO SCH ×4 (07:28→19:44)
[2019-10-25] MEDS: LIDOCAINE 2% PO SCH ×12 (07:28→19:44)
[2019-10-25] MEDS: Nitrofurantoin Monohydrate/Macrocrystalline 100 MG Cap PO SCH ×2 (07:28→17:19)
[2019-10-25] MEDS: Clopidogrel 75 MG Tab PO SCH (19:44)
[2019-10-25] MEDS: Sertraline 25 MG Tab PO SCH (19:44)
[2019-10-26] MEDS: NS + KCl 20mEq/L 1,000 ML IV SCH ×2 (00:54→22:09)
[2019-10-26] MEDS: metroNIDAZOLE/Normal Saline 500 MG in Premix Bag 1 BAG IV SCH ×3 (04:13→19:54)
[2019-10-26] MEDS: Enoxaparin 40 MG/0.4 ML Syringe SUBCUT SCH (07:34)
[2019-10-26] MEDS: Gabapentin 300 MG Cap PO SCH ×3 (07:36→19:54)
[2019-10-26] MEDS: valACYclovir 500 MG Tab PO SCH ×3 (07:36→19:54)
[2019-10-26] MEDS: Nitrofurantoin Monohydrate/Macrocrystalline 100 MG Cap PO SCH ×2 (07:36→17:17)
[2019-10-26] MEDS: SIMETH PO SCH ×12 (07:37→19:54)
[2019-10-26] MEDS: LIDOCAINE 2% PO SCH ×12 (07:37→19:54)
[2019-10-26] MEDS: DIPHENHYDRAMINE PO SCH ×12 (07:37→19:54)
[2019-10-26] MEDS: MAG HYDROX PO SCH ×12 (07:37→19:54)
[2019-10-26] MEDS: ALUM HYDROX PO SCH ×12 (07:37→19:54)
[2019-10-26] MEDS: Vancomycin 125 MG Cap PO SCH ×4 (07:37→19:54)
[2019-10-26] MEDS: Menthol/Zinc Oxide Ointment 113 GM Tube TOP PRN (11:51)
[2019-10-26] MEDS: Sertraline 25 MG Tab PO SCH (19:54)
[2019-10-26] MEDS: Clopidogrel 75 MG Tab PO SCH (19:54)
[2019-10-27] MEDS: Ondansetron 4 MG/2 ML SDV IV PRN (01:13)
[2019-10-27] MEDS: metroNIDAZOLE/Normal Saline 500 MG in Premix Bag 1 BAG IV SCH ×3 (03:39→20:06)
[2019-10-27] MEDS: MAG HYDROX PO SCH ×12 (07:30→20:06)
[2019-10-27] MEDS: DIPHENHYDRAMINE PO SCH ×12 (07:30→20:06)
[2019-10-27] MEDS: LIDOCAINE 2% PO SCH ×12 (07:30→20:06)
[2019-10-27] MEDS: ALUM HYDROX PO SCH ×12 (07:30→20:06)
[2019-10-27] MEDS: SIMETH PO SCH ×12 (07:30→20:06)
[2019-10-27] MEDS: valACYclovir 500 MG Tab PO SCH ×3 (07:31→19:51)
[2019-10-27] MEDS: Nitrofurantoin Monohydrate/Macrocrystalline 100 MG Cap PO SCH ×2 (07:31→17:18)
[2019-10-27] MEDS: Gabapentin 300 MG Cap PO SCH ×3 (07:32→19:51)
[2019-10-27] MEDS: Enoxaparin 40 MG/0.4 ML Syringe SUBCUT SCH (07:32)
[2019-10-27] MEDS: traMADol 50 MG Tab PO PRN (07:43)
[2019-10-27] MEDS: Vancomycin 125 MG Cap PO SCH ×4 (08:10→19:51)
[2019-10-27] MEDS ORDERED: Non-Formulary Medication 1 Each PO SCH (14:00)
[2019-10-27] MEDS: NS + KCl 20mEq/L 1,000 ML IV SCH (19:08)
[2019-10-27] MEDS: Clopidogrel 75 MG Tab PO SCH (19:50)
[2019-10-27] MEDS: Sertraline 25 MG Tab PO SCH (19:51)
[2019-10-28] MEDS: metroNIDAZOLE/Normal Saline 500 MG in Premix Bag 1 BAG IV SCH ×3 (04:32→20:37)
[2019-10-28] MEDS: Gabapentin 300 MG Cap PO SCH ×3 (07:41→20:35)
[2019-10-28] MEDS: ALUM HYDROX PO SCH ×12 (07:41→20:37)
[2019-10-28] MEDS: MAG HYDROX PO SCH ×12 (07:41→20:37)
[2019-10-28] MEDS: LIDOCAINE 2% PO SCH ×12 (07:41→20:37)
[2019-10-28] MEDS: SIMETH PO SCH ×12 (07:41→20:37)
[2019-10-28] MEDS: Enoxaparin 40 MG/0.4 ML Syringe SUBCUT SCH (07:41)
[2019-10-28] MEDS: Nitrofurantoin Monohydrate/Macrocrystalline 100 MG Cap PO SCH ×2 (07:41→16:36)
[2019-10-28] MEDS: DIPHENHYDRAMINE PO SCH ×12 (07:41→20:37)
[2019-10-28] MEDS: Vancomycin 125 MG Cap PO SCH ×4 (07:43→20:35)
[2019-10-28] MEDS: valACYclovir 500 MG Tab PO SCH ×3 (07:43→20:35)
[2019-10-28] MEDS: MEGESTROL AC PO SCH (07:46)
--- NOTE | 2019-10-28 08:48 | PCM.PN ---
- General Info Date of Service: 10/28/19 Admission Dx/Problem (Free Text): UTI Weakness C Diff Functional Status: Reports: Pain Controlled, Tolerating Diet, Ambulating - Review of Systems General: Reports: Weakness, Fatigue, Malaise HEENT: Reports: Other (mouth sores) Pulmonary: Denies: Shortness of Breath, Cough Cardiovascular: Reports: Lightheadedness. Denies: Chest Pain Gastrointestinal: Denies: Abdominal Pain, Diarrhea (diarrhea has improved, has not had a stool since yesterday), Nausea, Vomiting Genitourinary: Reports: No Symptoms Musculoskeletal: Reports: No Symptoms Skin: Reports: Pallor Neurological: Reports: Weakness - Patient Data Vitals - Most Recent: Last Vital Signs Temp 97.5 F 10/27/19 20:00 Pulse 84 10/27/19 20:00 Resp 18 10/27/19 20:00 BP 135/67 10/27/19 20:00 Pulse Ox 95 10/27/19 20:00 Weight - Most Recent: 147 lb 8 oz I&O - Last 24 Hours: Intake & Output 10/27/19 10/28/19 10/28/19 22:59 06:59 14:59 Intake Total 1100 Balance 1100 Med Orders - Current: Current Medications Acetaminophen (Tylenol) 650 mg PO Q4H PRN PRN Reason: Pain (Mild 1-3)/fever Calamine/Phenol (Calmoseptine) 0 gm TOP QID PRN PRN Reason: Other Last Admin: 10/26/19 11:51 Dose: 1 applic Clopidogrel Bisulfate (Plavix) 75 mg PO BEDTIME [facility] Last Admin: 10/27/19 19:50 Dose: 75 mg Al Hydroxide/Mg Hydroxide 5 ml / Diphenhydramine HCl 12.5 mg/Lidocaine HCl 5 ml 0 ml PO QID [facility] Last Admin: 10/28/19 07:41 Dose: 5 ml Enoxaparin Sodium (Lovenox) 40 mg SUBCUT Q24H [facility] Last Admin: 10/28/19 07:41 Dose: 40 mg Gabapentin (Neurontin) 300 mg PO TID [facility] Last Admin: 10/28/19 07:41 Dose: 300 mg Metronidazole 500 mg/ Premix 100 mls @ 100 mls/hr IV TID@0400,1200,2000 [facility] Last Admin: 10/28/19 04:32 Dose: 100 mls/hr Potassium Chloride/Sodium Chloride (Normal Saline With 20 Meq Kcl) 1,000 mls @ 50 mls/hr IV ASDIRECTED [facility] Last Admin: 10/27/19 19:08 Dose: 50 mls/hr Nitrofurantoin Macrocrystals (Macrobid) 100 mg PO BIDMEALS [facility] Last Admin: 10/28/19 07:41 Dose: 100 mg Nitroglycerin (Nitrolingual) 0.4 gm TRLING ASDIRECTED PRN PRN Reason: Chest Pain Ondansetron HCl (Zofran) 8 mg IV Q6H PRN PRN Reason: Nausea/Vomiting Last Admin: 10/27/19 01:13 Dose: 8 mg Megestrol Ac Susp 40 (Mg/Ml*Pt Own Med*) 0 each PO DAILY [facility] Last Admin: 10/28/19 07:46 Dose: 1 each Sertraline HCl (Zoloft) 25 mg PO BEDTIME [facility] Last Admin: 10/27/19 19:51 Dose: 25 mg Tramadol HCl (Ultram) 50 mg PO Q6H PRN PRN Reason: Pain Last Admin: 10/27/19 07:43 Dose: 50 mg Valacyclovir HCl (Valtrex) 500 mg PO TID [facility] Last Admin: 10/28/19 07:43 Dose: 500 mg Vancomycin HCl (Vancomycin) 125 mg PO QID [facility] Last Admin: 10/28/19 07:43 Dose: 125 mg Discontinued Medications Non-Formulary Medication (Nf Drug) 40 each PO TID [facility] Last Admin: 10/27/19 16:31 Dose: Not Given - Exam General: Alert, Oriented HEENT: Mucous Membr. Moist/[place] Neck: Supple Lungs: Clear to Auscultation, Normal Respiratory Effort Cardiovascular: Regular Rate, Regular Rhythm GI/Abdominal Exam: Normal Bowel Sounds, Soft, Tender Extremities: Normal Inspection, No Pedal Edema Skin: Warm, Dry Neurological: No New Focal Deficit Sepsis Event Note - Evaluation Sepsis Screening Result: No Definite Risk - Problem List & Annotations (1) Abdominal pain SNOMED Code(s): 94314607 Code(s): R10.9 - UNSPECIFIED ABDOMINAL PAIN Status: Acute Priority: High Current Visit: Yes Qualifiers: Abdominal location: generalized Qualified Code(s): R10.84 - Generalized abdominal pain (2) C. difficile diarrhea SNOMED Code(s): 1748696779163 Code(s): A04.72 - ENTEROCOLITIS D/T CLOSTRIDIUM DIFFICILE, NOT SPCF RECUR Status: Acute Priority: High Current Visit: Yes (3) Palliative care status SNOMED Code(s): 711622436 Code(s): Z51.5 - ENCOUNTER FOR PALLIATIVE CARE Status: Acute Priority: High Current Visit: Yes (4) UTI (urinary tract infection) SNOMED Code(s): 39447976 Code(s): N39.0 - URINARY TRACT INFECTION, SITE NOT SPECIFIED Status: Acute Priority: High Current Visit: Yes Qualifiers: Urinary tract infection type: acute cystitis Hematuria presence: without hematuria Qualified Code(s): N30.00 - Acute cystitis without hematuria (5) Weakness SNOMED Code(s): 87649412 Code(s): R53.1 - WEAKNESS Status: Acute Priority: High Current Visit: Yes - Problem List Review Problem List Initiated/Reviewed/Updated: Yes - My Orders Last 24 Hours: My Active Orders 10/28/19 08:00 Patient's Own Medication [Ptom] 0 each PO DAILY - Assessment Assessment:: Weakness UTI C Diff Palliative Care Status - Plan Plan:: Patient resting in chair. States starting to feel somewhat better. Still weak. No diarrhea stools since yesterday. Did have syncopal episode yesterday while working with PT. States has to be very careful in the mornings, does happen periodically. Appetite is improving, mouth sores are improving. Afebrile. Will continue with PT. Flagyl and Vancomycin for full course. Macrobid for UTI.
[2019-10-28] MEDS: NS + KCl 20mEq/L 1,000 ML IV SCH (17:36)
[2019-10-28] MEDS: Clopidogrel 75 MG Tab PO SCH (20:35)
[2019-10-28] MEDS: Sertraline 25 MG Tab PO SCH (20:35)
[2019-10-28] MEDS: Ondansetron 4 MG/2 ML SDV IV PRN (23:26)
[2019-10-28] MEDS ORDERED: Sodium Chloride 0.9% 50 ML ONE (23:26)
[2019-10-28] MEDS: traMADol 50 MG Tab PO PRN (23:29)
[2019-10-28] MEDS ORDERED: Sodium Chloride 0.9% 50 ML IV SCH (23:45)
[2019-10-29] MEDS: metroNIDAZOLE/Normal Saline 500 MG in Premix Bag 1 BAG IV SCH ×3 (03:46→19:55)
[2019-10-29] MEDS: Enoxaparin 40 MG/0.4 ML Syringe SUBCUT SCH (07:50)
[2019-10-29] MEDS: Nitrofurantoin Monohydrate/Macrocrystalline 100 MG Cap PO SCH ×2 (07:50→17:07)
[2019-10-29] MEDS: Vancomycin 125 MG Cap PO SCH ×4 (07:50→19:59)
[2019-10-29] MEDS: valACYclovir 500 MG Tab PO SCH ×3 (07:50→19:58)
[2019-10-29] MEDS: Gabapentin 300 MG Cap PO SCH ×3 (07:50→19:58)
[2019-10-29] MEDS: MEGESTROL AC PO SCH (07:53)
[2019-10-29] MEDS: DIPHENHYDRAMINE PO SCH ×12 (07:54→19:59)
[2019-10-29] MEDS: MAG HYDROX PO SCH ×12 (07:54→19:59)
[2019-10-29] MEDS: ALUM HYDROX PO SCH ×12 (07:54→19:59)
[2019-10-29] MEDS: LIDOCAINE 2% PO SCH ×12 (07:54→19:59)
[2019-10-29] MEDS: SIMETH PO SCH ×12 (07:54→19:59)
[2019-10-29] MEDS: NS + KCl 20mEq/L 1,000 ML IV SCH (17:39)
[2019-10-29] MEDS: Sertraline 25 MG Tab PO SCH (19:58)
[2019-10-29] MEDS: Clopidogrel 75 MG Tab PO SCH (19:58)
[2019-10-30] MEDS: metroNIDAZOLE/Normal Saline 500 MG in Premix Bag 1 BAG IV SCH ×3 (03:50→19:32)
[2019-10-30 07:30] LABS: CHLORIDE,CL 107 mEq/L (98-106); SODIUM,NA 138 mEq/L (136-145)
[2019-10-30] MEDS: Enoxaparin 40 MG/0.4 ML Syringe SUBCUT SCH (08:18)
[2019-10-30] MEDS: Vancomycin 125 MG Cap PO SCH ×4 (08:20→19:32)
[2019-10-30] MEDS: Nitrofurantoin Monohydrate/Macrocrystalline 100 MG Cap PO SCH ×2 (08:20→17:35)
[2019-10-30] MEDS: valACYclovir 500 MG Tab PO SCH ×3 (08:20→19:32)
[2019-10-30] MEDS: MEGESTROL AC PO SCH (08:21)
[2019-10-30] MEDS: SIMETH PO SCH ×3 (08:22)
[2019-10-30] MEDS: ALUM HYDROX PO SCH ×3 (08:22)
[2019-10-30] MEDS: DIPHENHYDRAMINE PO SCH ×3 (08:22)
[2019-10-30] MEDS: LIDOCAINE 2% PO SCH ×3 (08:22)
[2019-10-30] MEDS: MAG HYDROX PO SCH ×3 (08:22)
[2019-10-30] MEDS: Gabapentin 300 MG Cap PO SCH ×3 (08:25→19:32)
[2019-10-30] MEDS ORDERED: LIDOCAINE 2% PO PRN ×3 (08:35)
[2019-10-30] MEDS ORDERED: ALUM HYDROX PO PRN ×3 (08:35)
[2019-10-30] MEDS ORDERED: DIPHENHYDRAMINE PO PRN ×3 (08:35)
[2019-10-30] MEDS ORDERED: SIMETH PO PRN ×3 (08:35)
[2019-10-30] MEDS ORDERED: MAG HYDROX PO PRN ×3 (08:35)
[2019-10-30] MEDS: Ondansetron 4 MG Tab.DIS PO PRN ×2 (16:09→20:08)
[2019-10-30] MEDS: Clopidogrel 75 MG Tab PO SCH (19:32)
[2019-10-30] MEDS: Sertraline 25 MG Tab PO SCH (19:32)
[2019-10-30] MEDS: Acetaminophen 325 MG Tab PO PRN (20:07)
[2019-10-31] MEDS: metroNIDAZOLE/Normal Saline 500 MG in Premix Bag 1 BAG IV SCH ×3 (04:12→20:01)
[2019-10-31] MEDS: Acetaminophen 325 MG Tab PO PRN ×2 (05:49→18:14)
[2019-10-31] MEDS: traMADol 50 MG Tab PO PRN ×2 (08:28→20:08)
[2019-10-31] MEDS: valACYclovir 500 MG Tab PO SCH ×3 (08:46→20:01)
[2019-10-31] MEDS: Nitrofurantoin Monohydrate/Macrocrystalline 100 MG Cap PO SCH ×2 (08:46→16:46)
[2019-10-31] MEDS: Gabapentin 300 MG Cap PO SCH ×3 (08:46→20:01)
[2019-10-31] MEDS: Vancomycin 125 MG Cap PO SCH ×4 (08:46→20:00)
[2019-10-31] MEDS: Enoxaparin 40 MG/0.4 ML Syringe SUBCUT SCH (08:46)
[2019-10-31] MEDS: MEGESTROL AC PO SCH (08:47)
[2019-10-31] MEDS: Sertraline 25 MG Tab PO SCH (20:00)
[2019-10-31] MEDS: Clopidogrel 75 MG Tab PO SCH (20:01)
[2019-11-01] MEDS: metroNIDAZOLE/Normal Saline 500 MG in Premix Bag 1 BAG IV SCH ×3 (04:12→19:19)
[2019-11-01] MEDS: traMADol 50 MG Tab PO PRN (06:25)
[2019-11-01] MEDS: Enoxaparin 40 MG/0.4 ML Syringe SUBCUT SCH (08:04)
[2019-11-01] MEDS: Vancomycin 125 MG Cap PO SCH ×4 (08:04→19:21)
[2019-11-01] MEDS: Nitrofurantoin Monohydrate/Macrocrystalline 100 MG Cap PO SCH ×2 (08:04→16:42)
[2019-11-01] MEDS: valACYclovir 500 MG Tab PO SCH ×3 (08:04→19:21)
[2019-11-01] MEDS: Gabapentin 300 MG Cap PO SCH ×3 (08:04→19:21)
[2019-11-01] MEDS: Ondansetron 4 MG Tab.DIS PO PRN (08:05)
[2019-11-01] MEDS: MEGESTROL AC PO SCH (08:06)
[2019-11-01] MEDS: Sertraline 25 MG Tab PO SCH (19:20)
[2019-11-01] MEDS: Clopidogrel 75 MG Tab PO SCH (19:21)
[2019-11-02] MEDS: metroNIDAZOLE/Normal Saline 500 MG in Premix Bag 1 BAG IV SCH ×3 (03:28→19:15)
[2019-11-02] MEDS: Nitrofurantoin Monohydrate/Macrocrystalline 100 MG Cap PO SCH ×2 (08:58→17:10)
[2019-11-02] MEDS: Enoxaparin 40 MG/0.4 ML Syringe SUBCUT SCH (08:58)
[2019-11-02] MEDS: valACYclovir 500 MG Tab PO SCH ×3 (08:58→19:15)
[2019-11-02] MEDS: Vancomycin 125 MG Cap PO SCH ×4 (08:58→19:15)
[2019-11-02] MEDS: MEGESTROL AC PO SCH (08:59)
[2019-11-02] MEDS: Gabapentin 300 MG Cap PO SCH ×3 (08:59→19:15)
[2019-11-02] MEDS: Sertraline 25 MG Tab PO SCH (19:15)
[2019-11-02] MEDS: Clopidogrel 75 MG Tab PO SCH (19:15)
[2019-11-03] MEDS: metroNIDAZOLE/Normal Saline 500 MG in Premix Bag 1 BAG IV SCH ×3 (04:25→19:59)
[2019-11-03] MEDS: Gabapentin 300 MG Cap PO SCH ×3 (07:52→19:52)
[2019-11-03] MEDS: Enoxaparin 40 MG/0.4 ML Syringe SUBCUT SCH (07:52)
[2019-11-03] MEDS: valACYclovir 500 MG Tab PO SCH ×3 (07:52→19:51)
[2019-11-03] MEDS: Vancomycin 125 MG Cap PO SCH ×4 (07:52→19:51)
[2019-11-03] MEDS: Nitrofurantoin Monohydrate/Macrocrystalline 100 MG Cap PO SCH ×2 (07:53→16:29)
[2019-11-03] MEDS: MEGESTROL AC PO SCH (08:50)
[2019-11-03] MEDS: Acetaminophen 325 MG Tab PO PRN (16:29)
[2019-11-03] MEDS: Sertraline 25 MG Tab PO SCH (19:51)
[2019-11-03] MEDS: Menthol/Zinc Oxide Ointment 113 GM Tube TOP PRN (19:52)
[2019-11-03] MEDS: Clopidogrel 75 MG Tab PO SCH (19:52)
[2019-11-04] MEDS: metroNIDAZOLE/Normal Saline 500 MG in Premix Bag 1 BAG IV SCH (04:43)
[2019-11-04] MEDS: Enoxaparin 40 MG/0.4 ML Syringe SUBCUT SCH (07:33)
[2019-11-04] MEDS: Vancomycin 125 MG Cap PO SCH (07:33)
[2019-11-04] MEDS: Gabapentin 300 MG Cap PO SCH ×3 (07:34→19:43)
[2019-11-04] MEDS: Nitrofurantoin Monohydrate/Macrocrystalline 100 MG Cap PO SCH (07:34)
[2019-11-04] MEDS: valACYclovir 500 MG Tab PO SCH ×3 (07:34→19:44)
[2019-11-04] MEDS: MEGESTROL AC PO SCH (07:35)
[2019-11-04] MEDS: Sertraline 25 MG Tab PO SCH (19:44)
[2019-11-04] MEDS: Clopidogrel 75 MG Tab PO SCH (19:44)
[2019-11-05] MEDS: MEGESTROL AC PO SCH (07:52)
[2019-11-05] MEDS: Gabapentin 300 MG Cap PO SCH ×3 (07:52→21:11)
[2019-11-05] MEDS: valACYclovir 500 MG Tab PO SCH ×3 (07:52→21:10)
[2019-11-05] MEDS: Enoxaparin 40 MG/0.4 ML Syringe SUBCUT SCH (07:52)
[2019-11-05] MEDS: Ondansetron 4 MG Tab.DIS PO PRN (14:15)
[2019-11-05] MEDS: Clopidogrel 75 MG Tab PO SCH (21:10)
[2019-11-05] MEDS: Sertraline 25 MG Tab PO SCH (21:10)
[2019-11-06] MEDS: Enoxaparin 40 MG/0.4 ML Syringe SUBCUT SCH (07:41)
[2019-11-06] MEDS: Gabapentin 300 MG Cap PO SCH ×3 (07:41→20:30)
[2019-11-06] MEDS: valACYclovir 500 MG Tab PO SCH (07:41)
[2019-11-06] MEDS: MEGESTROL AC PO SCH (07:42)
[2019-11-06] MEDS: Sertraline 25 MG Tab PO SCH (20:30)
[2019-11-06] MEDS: Clopidogrel 75 MG Tab PO SCH (20:30)
[2019-11-07] MEDS: MEGESTROL AC PO SCH (08:20)
[2019-11-07] MEDS: Gabapentin 300 MG Cap PO SCH (08:20)
[2019-11-07] MEDS: Enoxaparin 40 MG/0.4 ML Syringe SUBCUT SCH (08:20)
[2019-11-07 09:09] VITALS: BP 141/69; PULSE 88
--- NOTE | 2019-11-07 10:00 | PCM.DCSUM1 ---
Discharge Summary - Hospital Course Free Text/Narrative:: Patient initially presented to see Lamont Pugh for ongoing nausea, weakness and UTI. She had been treated earlier with IV Rocephin as an outpatient as she has difficulty with tolerating oral antibiotics. Started on IV fluids. Did develop persistent diarrhea, which ultimately was diagnosed with C Diff. On IV Flagyl but not improving so oral Vancomycin was added. She also was switched to Macrobid for UTI as resistant to Rocephin. Has had ongoing issues with mouth sores from oral chemo which has also increased her weakness and nausea. Transferred to swing bed for ongoing physical therapy, IV antibiotics. Diagnosis: Stroke: No Modified Francisco Scale: No Symptoms at All Modified [place] Scale Score: 0 - Discharge Data Discharge Date: 11/07/19 Discharge Disposition: DC/Tfer to SNF 03 Condition: Fair - Referral to Home Health Primary Care Physician: James Uriarte MD - Discharge Diagnosis/Problem(s) (1) Abdominal pain SNOMED Code(s): 83908358 ICD Code: R10.9 - UNSPECIFIED ABDOMINAL PAIN Status: Acute Priority: High Qualifiers: Abdominal location: generalized Qualified Code(s): R10.84 - Generalized abdominal pain (2) C. difficile diarrhea SNOMED Code(s): 9971413425314 ICD Code: A04.72 - ENTEROCOLITIS D/T CLOSTRIDIUM DIFFICILE, NOT SPCF RECUR Status: Acute Priority: High (3) Palliative care status SNOMED Code(s): 053933678 ICD Code: Z51.5 - ENCOUNTER FOR PALLIATIVE CARE Status: Acute Priority: High (4) UTI (urinary tract infection) SNOMED Code(s): 15954486 ICD Code: N39.0 - URINARY TRACT INFECTION, SITE NOT SPECIFIED Status: Acute Priority: High Qualifiers: Urinary tract infection type: acute cystitis Hematuria presence: without hematuria Qualified Code(s): N30.00 - Acute cystitis without hematuria (5) Weakness SNOMED Code(s): 74673878 ICD Code: R53.1 - WEAKNESS Status: Acute Priority: High - Patient Summary/Data Complications: none Consults: Consultations 10/24/19 12:40 Consult to Physical Therapy [PT Evaluation and Treatment] [CONS] Routine 11/03/19 08:21 Consult to Case Management/Culinary Instructor [CONS] Routine Hospital Course: Patient is improving. Mouth sores have essentially cleared and is eating better. Vancomycin, Macrobid and Flagyl have been stopped. Diarrhea resolved. She is ambulating short distances with walker and standby assist. No fevers. CA125 was done, is improved but patient has opted to continue to hold her oral chemo meds at this time. Does continue to have issues with near syncopal episodes at times with toileting, which she reports has been happening for some time and work up has been negative. Will transfer to detention for ongoing therapy to regain strength. - Patient Instructions Diet: Usual Diet as Tolerated Activity: As Tolerated - Discharge Plan *PRESCRIPTION DRUG MONITORING PROGRAM REVIEWED*: No *COPY OF PRESCRIPTION DRUG MONITORING REPORT IN PATIENT KATHY: No Prescriptions/Med Rec: Acetaminophen [Tylenol] 650 mg PO Q4H PRN #60 tablet PRN Reason: Pain (Mild 1-3)/fever Patient's Own Medication [Ptom] 0 each PO DAILY #600 ml Home Medications: Home Meds Aspirin [Halfprin] 81 mg PO DAILY 01/07/16 [History] Nitroglycerin [Nitrolingual] 0.4 gm SL ASDIRECTED PRN 01/07/16 [History] Ubidecarenone [COQ-10] 30 mg PO DAILY 01/07/16 [History] atorvaSTATin Calcium [Atorvastatin Calcium] 40 mg PO BEDTIME 01/07/16 [History] Acetaminophen [Tylenol] 325 mg PO Q4H PRN 07/23/18 [History] Ondansetron [Zofran] 4 - 8 mg PO Q4H PRN 07/23/18 [History] Gabapentin [Neurontin] 300 mg PO TID 10/01/18 [History] Clopidogrel Bisulfate [Clopidogrel] 75 mg PO BEDTIME 11/07/18 [History] Sertraline [Zoloft] 25 mg PO BEDTIME #30 tablet 11/22/18 [Rx] traMADol [Ultram] 50 mg PO Q6HR PRN 09/26/19 [History] Etoposide 93 mg PO DAILY 10/17/19 [History] Acetaminophen [Tylenol] 650 mg PO Q4H PRN #60 tablet 11/07/19 [Rx] Patient's Own Medication [Ptom] 0 each PO DAILY #600 ml 11/07/19 [Rx] - Discharge Summary/Plan Comment DC Time >30 min.: Yes Discharge Summary/Plan Comment: Discharge to detention Time with patient 15 minutes Time for orders 15 minutes Time for documentation 10 minutes - General Info Date of Service: 11/07/19 Admission Dx/Problem (Free Text: UTI Weakness C Diff Functional Status: Reports: Pain Controlled, Tolerating Diet, Ambulating - Review of Systems General: Reports: Weakness, Fatigue, Malaise HEENT: Reports: No Symptoms Pulmonary: Denies: Shortness of Breath Cardiovascular: Denies: Chest Pain, Edema, Lightheadedness Gastrointestinal: Denies: Abdominal Pain, Diarrhea, Nausea, Vomiting Genitourinary: Reports: No Symptoms Musculoskeletal: Reports: No Symptoms Skin: Reports: No Symptoms Neurological: Reports: Weakness - Patient Data Vitals - Most Recent: Last Vital Signs Temp 97.8 F 11/07/19 08:00 Pulse 88 11/07/19 08:00 Resp 16 11/07/19 08:00 BP 141/69 H 11/07/19 08:00 Pulse Ox 96 11/07/19 08:00 Weight - Most Recent: 152 lb Med Orders - Current: Current Medications Acetaminophen (Tylenol) 650 mg PO Q4H PRN PRN Reason: Pain (Mild 1-3)/fever Last Admin: 11/03/19 16:29 Dose: 650 mg Calamine/Phenol (Calmoseptine) 0 gm TOP QID PRN PRN Reason: Other Last Admin: 11/03/19 19:52 Dose: 1 applic Clopidogrel Bisulfate (Plavix) 75 mg PO BEDTIME [facility] Last Admin: 11/06/19 20:30 Dose: 75 mg Al Hydroxide/Mg Hydroxide 5 ml / Diphenhydramine HCl 12.5 mg/Lidocaine HCl 5 ml 0 ml PO QID PRN PRN Reason: Wound Care Enoxaparin Sodium (Lovenox) 40 mg SUBCUT Q24H [facility] Last Admin: 11/07/19 08:20 Dose: 40 mg Gabapentin (Neurontin) 300 mg PO TID [facility] Last Admin: 11/07/19 08:20 Dose: 300 mg Heparin Sodium (Porcine) (Heparin Lock Flush 100 Units/Ml) 500 units FLUSH DAILY [facility] Last Admin: 11/07/19 08:20 Dose: 500 units Nitroglycerin (Nitrolingual) 0.4 gm TRLING ASDIRECTED PRN PRN Reason: Chest Pain Ondansetron HCl (Zofran) 8 mg IV Q6H PRN PRN Reason: Nausea/Vomiting Last Admin: 10/28/19 23:26 Dose: 8 mg Ondansetron HCl (Zofran Odt) 4 mg PO Q4H PRN PRN Reason: Nausea/Vomiting Last Admin: 11/05/19 14:15 Dose: 4 mg Megestrol Ac Susp 40 (Mg/Ml*Pt Own Med*) 0 each PO DAILY [facility] Last Admin: 11/07/19 08:20 Dose: 20 each Sertraline HCl (Zoloft) 25 mg PO BEDTIME [facility] Last Admin: 11/06/19 20:30 Dose: 25 mg Tramadol HCl (Ultram) 50 mg PO Q6H PRN PRN Reason: Pain Last Admin: 11/01/19 06:25 Dose: 50 mg Discontinued Medications Al Hydroxide/Mg Hydroxide 5 ml / Diphenhydramine HCl 12.5 mg/Lidocaine HCl 5 ml 0 ml PO QID [facility] Last Admin: 10/30/19 08:22 Dose: 5 ml Heparin Sodium (Porcine) (Heparin Lock Flush 100 Units/Ml) 500 units FLUSH DAILY@1200 [facility] Stop: 11/04/19 12:00 Last Admin: 11/04/19 11:55 Dose: 500 units Metronidazole 500 mg/ Premix 100 mls @ 100 mls/hr IV TID@0400,1200,2000 [facility] Last Admin: 11/04/19 04:43 Dose: 100 mls/hr Potassium Chloride/Sodium Chloride (Normal Saline With 20 Meq Kcl) 1,000 mls @ 50 mls/hr IV ASDIRECTED [facility] Last Admin: 10/29/19 17:39 Dose: 50 mls/hr Sodium Chloride (Normal Saline) Confirm Administered Dose 50 mls @ as directed .ROUTE .STK-MED ONE Stop: 10/28/19 23:27 Last Admin: 10/28/19 23:41 Dose: Not Given Sodium Chloride (Normal Saline) 50 mls @ 50 mls/hr IV ASDIRECTED [facility] Nitrofurantoin Macrocrystals (Macrobid) 100 mg PO BIDMEALS [facility] Last Admin: 11/04/19 07:34 Dose: 100 mg Non-Formulary Medication (Nf Drug) 40 each PO TID [facility] Last Admin: 10/27/19 16:31 Dose: Not Given Valacyclovir HCl (Valtrex) 500 mg PO TID [facility] Last Admin: 11/06/19 07:41 Dose: 500 mg Vancomycin HCl (Vancomycin) 125 mg PO QID [facility] Last Admin: 11/04/19 07:33 Dose: 125 mg - Exam General: Reports: Alert, Oriented HEENT: Reports: Mucous Membr. Moist/[place] Neck: Reports: Supple Lungs: Reports: Clear to Auscultation, Normal Respiratory Effort Cardiovascular: Reports: Regular Rate, Regular Rhythm GI/Abdominal Exam: Normal Bowel Sounds, Soft, Non-Tender Extremities: Normal Inspection, No Pedal Edema Skin: Reports: Warm, Dry Neurological: Reports: No New Focal Deficit
== END 2019-11-07 10:15 | DRG 372 ==
LOC: CC.MS 12:13 → UNDOADMIN 12:39 → CC.MS 12:39
PROVIDERS: ADMIT Physician Assistant Medical; ATTEND Family Medicine
DX: A04.72 Enterocolitis due to Clostridium difficile, not specified as recurrent (principal); N30.00 Acute cystitis without hematuria; Z51.5 Encounter for palliative care; R53.1 Weakness; K13.79 Other lesions of oral mucosa
CPT/HCPCS: 80048; 85025; 86140; 97110-GP; 97530-GP; A9270-GY; J1642; J1650; J2405; J3480; J3490